=== PATIENT | female | born 1940 | race Caucasian/White ===

== ENCOUNTER → 2019-04-26 12:36 | Outpatient (CLI) | payer MEDICARE, MEDICAID, SELFPAY ==
--- NOTE | ~2019-04-26 | MM_ITS ---
EXAMINATION: MM screening saúl BI w claudia HISTORY: Screening mammogram TECHNIQUE: Craniocaudal and mediolateral oblique 3-D tomosynthesis images were obtained and synthetic 2-D images were generated. CAD analysis was submitted and interpreted. COMPARISON: Comparison to multiple prior studies sequentially, with oldest reviewed study dated 10/25. BREAST PARENCHYMAL COMPOSITION: There are scattered areas of fibroglandular density. FINDINGS: Stable bilateral breast calcifications. There is no evidence of suspicious mass, calcificat ion, or architectural distortion to suggest malignancy in either breast. There has been no suspicious interval change. IMPRESSION: 1. No mammographic evidence of malignancy. 2. Recommend routine screening mammography in one year. BI-RADS Category 2: Benign finding(s). Reviewed, dictated and finalized at location A.
--- NOTE | ~2019-04-26 | DEXA_ITS ---
Bone Density Report Name: Kylie Nunn Age: 78 Sex: Female Ethnicity: White Date of : 1940 Indication: postmenopausal; screening for osteoporosis; hysterectomy; Referring Provider: Gwen Caceres Study: Bone densitometry was performed. Exam Date: April 26, 2019 Accession number: [id number] Bone Density: Region BMD T-score Z-score Classification AP Spine (L1-L4) 1.355 2.8 5.3 Normal Femoral Neck (Left) 0.837 -0.1 2.0 Normal Total Hip (Left) 1.049 0.9 2.8 Normal Femoral Neck (Right) 0.908 0.5 2.7 Normal Total Hip (Right) 1.057 0.9 2.8 Normal Total Hip Mean 1.053 0.9 2.8 Normal World Health Organization criteria for BMD impression classify patients as: Normal (T-score at or above -1.0), Osteopenia (T-score between -1.0 and -2.5), or Osteoporosis (T-score at or below -2.5). 10-year Fracture Risk: FRAX not reported because: All T-scores for Spine Total, Hip Total, Femoral Neck at or above -1.0 Clinical Information Provided by Patient: Has used the following medications: Vitamin D, mtv Has the following medical conditions: Hysterectomy Patient maximum height was 61 Menopause Age: 31 No regular weight bearing exercise Drinks caffeinated beverages Onset of menses at age 11 Number of children 3 Impression: The patient has normal bone mass. Discussion: BONE DENSITY IS ABOVE THE MINIMUM DESIRABLE LEVEL AT ALL SKELETAL SITES TESTED. This patient?s bone mineral density is above the minimum desirable level (T-score -1.0 or better) at all sites measured. The patient should follow a healthful lifestyle (good nutrition with adequate calcium and vitamin D, and appropriate weight-bearing exercise). Follow-Up: Consider repeating this study in 5 years or sooner if there is some new clinical indication. Reported by: HOWARD on 04/26/2019 1:40:00 PM. Reviewed, dictated and finalized at location AJosué OSBORNE
== END ==
PROVIDERS: PCP Internal Medicine; Visit Provider Nurse Practitioner
DX: Z12.31 Encounter for screening mammogram for malignant neoplasm of breast (principal); Z78.0 Asymptomatic menopausal state
CPT/HCPCS: 77063; 77067; 77080

== ENCOUNTER 2019-07-21 14:22 | Outpatient (CLI) | payer MEDICARE, MEDICAID, SELFPAY ==
--- NOTE | ~2019-07-21 | MR_ITS ---
EXAMINATION: MR shoulder LT wo con DATE: 07/21/2019 15:53 INDICATION: Left shoulder pain. TECHNIQUE: Magnetic resonance imaging (MRI) of the left shoulder was performed without intravenous co ntrast. Sequences included axial PD-weighted FS FSE, coronal oblique PD-weighted FS FSE and T2-weight ed FS FSE, and sagittal oblique T2-weighted FS FSE and T1-weighted FSE. COMPARISON: None. FINDINGS: Coracoacromial arch: The acromion undersurface is curved in morphology (type II). Subacromial spurring is noted. There is severe acromioclavicular joint osteoarthritis including inferiorly directed osteophytes. There is mod erate subacromial/subdeltoid bursitis. Rotator cuff: There is a near full-thickness articular-sided and bursal-sided tear of supraspinatus tendon measurin g 1.6 cm anterior to posterior by 2.0 cm proximal to distal. There is an interstitial tear of infrasp inatus at the myotendinous junction. Teres minor tendon is normal. There is mild subscapularis tendin opathy. There is no asymmetric fatty atrophy of the rotator cuff muscle bellies. Biceps tendon and glenoid labrum: Biceps tendon is in bicipital groove. There is severe tendinopathy of the intra-articular biceps tend on. There is a tear of the superior glenoid labrum from 10:00 to 1:00 (SLAP tear). Fluid: There is a small knee joint effusion. Bones/cartilage: There is partial-thickness cartilage loss of glenoid and humeral head including deep partial-thicknes s cartilage loss of superior medial aspect of humeral head. IMPRESSION: 1. Near full-thickness tear of supraspinatus tendon. Interstitial tear of infraspinatus myotendinous junction. 2. Moderate glenohumeral joint chondrosis. SLAP tear. 3. Moderate subacromial/subdeltoid bursitis. 4. Small glenohumeral joint effusion. 5. Severe acromioclavicular joint osteoarthritis. 6. Severe intra-articular biceps tendinopathy. Reviewed, dictated and finalized at location A. IMPRESSION: 1. Near full-thickness tear of supraspinatus tendon. Interstitial tear of infra spinatus myotendinous junction. 2. Moderate glenohumeral joint chondrosis. SLAP tear. 3. Moderate subacromial/subdeltoid bursitis. 4. Small glenohumeral joint effusion. 5. Severe acromioclavicular joint osteoarthritis. 6. Severe intra-articular biceps tendinopathy.
== END 2019-07-21 14:23 | disposition home or self-care (01) ==
LOC: ANHIMG 14:22
PROVIDERS: PCP Internal Medicine; Visit Provider Nurse Practitioner
DX: M25.512 Pain in left shoulder (principal); G89.29 Other chronic pain; S46.012A Strain of muscle(s) and tendon(s) of the rotator cuff of left shoulder, initial encounter; S43.432A Superior glenoid labrum lesion of left shoulder, initial encounter; M75.52 Bursitis of left shoulder; M25.412 Effusion, left shoulder; M19.012 Primary osteoarthritis, left shoulder
CPT/HCPCS: 73221

== ENCOUNTER 2019-08-04 17:24 | Emergency (ER) | payer MEDICARE, MEDICAID, SELFPAY ==
[2019-08-04 17:30] VITALS: BP 158/72; PULSE 73; RESP 14; TEMP 36.8; O2SAT 97
--- NOTE | 2019-08-04 17:37 | ED.FEMALEGU ---
HPI - Female Genitourinary General Chief complaint: Urogenital-Female Stated complaint: abd pain,trouble urinating Time Seen by Provider: 08/04/19 17:38 Source: patient and RN notes reviewed Mode of arrival: ambulatory Limitations: no limitations History of Present Illness MD elicited complaint: dysuria and UTI Onset (ago): day(s) (2-3) Location of symptoms: suprapubic Severity: moderate Female Urogenital Radiation: L Flank and R Flank Severity scale (1-10): 10 Quality of pain: dull and aching Consistency: intermittent and progressively worsening Vaginal discharge: none Vaginal bleeding: none Urinary symptoms: Dysuria, Frequency, Foul Smelling Urine, Difficulty Urinating and Flank Pain Exacerbating factors: urination Relieving factors: none Treatment prior to arrival: none Sexual activity: No Related Data Home Medications Medication Instructions Recorded Confirmed aspirin 325 mg tablet,delayed 325 mg PO DAILY 01/27/19 08/04/19 release mooktvmkaf-egywgdccafgkn-ttzmptas 1 cap PO DAILY PRN cap 01/27/19 08/04/19 50 mg-325 mg-40 mg capsule cyanocobalamin (vitamin B-12) 1,000 mcg PO DAILY 01/27/19 08/04/19 1,000 mcg capsule docusate sodium 50 mg capsule 50 mg PO BID PRN 01/27/19 08/04/19 donepezil 10 mg tablet 10 mg PO QPM tablet 01/27/19 08/04/19 fluticasone propionate 50 1 spray NASAL DAILY 01/27/19 08/04/19 mcg/actuation nasal spray,suspension nitroglycerin 0.2 mg/hr 1 patch TRANSDERM DAILY 01/27/19 08/04/19 transdermal 24 hour patch nortriptyline 25 mg capsule 10 mg PO HS cap 07/13/19 08/04/19 amlodipine 5 mg PO DAILY 08/04/19 08/04/19 Allergies Allergy/AdvReac Type Severity Reaction Status Date / Time No Known Allergies Allergy Unverified 01/27/19 14:34 Review of Systems Review of Systems: All systems reviewed & are unremarkable except as noted in HPI and below Cardiovascular: Cardiovascular: Reports no additional cardiovascular complaints Respiratory: Respiratory: Reports no additional respiratory complaints Gastrointestinal: Gastrointestinal: Denies diarrhea, Denies nausea and Denies vomiting Genitourinary: Genitourinary: Reports as per HPI Musculoskeletal: Musculoskeletal: Reports no additional musculoskeletal complaints Integumentary/Breasts: Skin/Breast: Reports system reviewed and no additional complaints, except as docu Neurologic: Reports system reviewed and no additional complaints, except as documented PMFSH Past Medical History Medical History CAD (coronary artery disease) CVA (cerebral vascular accident) Depression Dizziness Headache Heartburn Hemorrhoids History of measles, mumps, or rubella Hyperlipidemia Hypertension Osteoarthritis Recurrent UTI Shingles Tuberculosis Surgical History Surgical History H/O coronary angioplasty 1997, 2008, 2014 H/O: hysterectomy History of coronary artery stent placement 1993 Family History Family History Father Family history of cardiovascular disease Sibling Family history of cardiovascular disease Hypoglycemia Lung disease Mother Family history of lung disease Social History Social History Smoking status: Former smoker Smoking end date: 02/10/82 Alcohol intake: current Exam Const: General: healthy appearing, no acute distress and alert Nutritional Appearance: well nourished and obese centrally obese Orientation/consciousness: patient oriented x3 HENMT: Head: normal to inspection Eyes: Conjunctivae: conjunctivae normal Pupils: Equal, round and reactive pupils present EOM: EOMs intact bilaterally Neck: Neck: normal visual inspection Resp: Effort & Inspection: normal respiratory effort Auscultation: clear to auscultation bilaterally Cardio: Rate: regular rate Rhythm: regular r
[2019-08-04 17:58] LABS: Add Urine Microscopic? YES; Appearance Urine Cloudy (Clear); Bilirubin Urine Negative (Negative); Blood Urine 3+ (Negative); Color Urine Yellow (Yellow); Glucose Urine UA Negative (Negative); Ketones Urine Negative (Negative); Leukocyte Esterase Ur 3+ (Negative); Nitrate Urine Negative (Negative); Protein Urine Negative (Negative); Specific Grav Ur 1.025 (1.010-1.020); Urobilinogen Urine 0.2 mg/dL (0.2-1.0)
[2019-08-04 18:02] LABS: Bacteria Urine 1+ /hpf; RBC Urine 0-2 /hpf (0-2); Squamous Epithelial Cell Urine Few /hpf (Few); WBC Urine >75 /hpf (0-3)
[2019-08-04 18:13] VITALS: RESP 14; O2SAT 100
[2019-08-04] MEDS: cefTRIAXone 1 GM VIAL IM (18:18)
[2019-08-04] MEDS: LIDOCAINE HCL 1% LOCAL INJ 20 ML VIAL (18:18)
== END 2019-08-04 18:15 | disposition home or self-care (01) ==
PROVIDERS: Emergency Provider Emergency Medicine; PCP Internal Medicine
DX: N39.0 Urinary tract infection, site not specified (principal); Z87.891 Personal history of nicotine dependence; E78.5 Hyperlipidemia, unspecified; I10 Essential (primary) hypertension; Z86.73 Personal history of transient ischemic attack (TIA), and cerebral infarction without residual deficits; I25.10 Atherosclerotic heart disease of native coronary artery without angina pectoris
CPT/HCPCS: 81001; 96372; 99283; J0696

== ENCOUNTER 2019-08-16 14:37 | Outpatient (CLI) | payer MEDICARE, MEDICAID, SELFPAY ==
[2019-08-16 14:59] LABS: Add Urine Microscopic? NO; Appearance Urine Clear (Clear); Bilirubin Urine Negative (Negative); Blood Urine Negative (Negative); Color Urine Yellow (Yellow); Glucose Urine UA Negative (Negative); Ketones Urine Negative (Negative); Leukocyte Esterase Ur Negative LEU/UL (Negative); Nitrate Urine Negative (Negative); Protein Urine Negative (Negative); Specific Grav Ur 1.014 (1.001-1.035); Urobilinogen Urine Negative mg/dL (<2.0)
== END 2019-08-16 14:38 | disposition home or self-care (01) ==
PROVIDERS: PCP Internal Medicine; Visit Provider Clinical Nurse Specialist
DX: R30.0 Dysuria (principal)
CPT/HCPCS: 81003

== ENCOUNTER → 2021-03-26 13:36 | Outpatient (CLI) | payer MEDICARE, MEDICAID, SELFPAY ==
--- NOTE | ~2021-03-26 | XR_ITS ---
XR hip LT min 3V w AP pelvis DATE: 03/26/2021 13:56 INDICATION: Left hip pain TECHNIQUE: AP pelvis. AP and lateral views of left hip. COMPARISON: 12/07/2013 pelvis and left hip FINDINGS: There is prominent degenerative disc disease at L3-4, L4-5 and L5-S1. The pubic symphysis and sacroiliac joints are intact. No pelvic fracture or bone destruction. There is moderate right and moderately severe left hip osteoarthritis. No fracture or dislocation, avascular necrosis or bone destruction of either hip is detected. IMPRESSION: Degenerative disc disease at L3-4, L4-5 and L5-S1 Bilateral moderate to moderately severe hip osteoarthritis, left greater than right Reviewed, dictated and finalized at location B. NESS OPERATIONS SPECIALIST IMPRESSION: Degenerative disc disease at L3-4, L4-5 and L5-S1 Bilateral moderate to moderately severe hip osteoarthritis, [facility]
== END ==
PROVIDERS: PCP Nurse Practitioner; Visit Provider Nurse Practitioner
DX: M25.552 Pain in left hip (principal); M51.36 Other intervertebral disc degeneration, lumbar region; M16.0 Bilateral primary osteoarthritis of hip
CPT/HCPCS: 73502

== ENCOUNTER → 2021-04-17 13:29 | Outpatient (CLI) | payer MEDICARE, MEDICAID, SELFPAY ==
--- NOTE | ~2021-04-17 | MM_ITS ---
EXAMINATION: MM screening saúl BI w claudia HISTORY: Screening TECHNIQUE: Craniocaudal and mediolateral oblique 3-D tomosynthesis images were obtained and synthetic 2-D images were generated. CAD analysis was submitted and interpreted. COMPARISON: Comparison to multiple prior studies sequentially, with oldest reviewed study dated 10/25. BREAST PARENCHYMAL COMPOSITION: Breast composed of scattered areas of fibroglandular density FINDINGS: There is no evidence of suspicious mass, calcification, or architectural distortion to sugg est malignancy in either breast. There has been no suspicious interval change. IMPRESSION: 1. No mammographic evidence of malignancy. 2. Recommend routine screening mammography in one year. BI-RADS CATEGORY 2 - BENIGN FINDINGS Reviewed, dictated and finalized at location A. MIXER
== END ==
PROVIDERS: PCP Internal Medicine; Visit Provider Nurse Practitioner
DX: Z12.31 Encounter for screening mammogram for malignant neoplasm of breast (principal)
CPT/HCPCS: 77063; 77067

== ENCOUNTER 2021-05-14 13:53 | Outpatient (RCR) | payer MEDICARE, MEDICAID, SELFPAY ==
--- NOTE | 2021-05-14 15:05 | PTOPEVAL ---
Thank you for referring Kylie Nunn to [facility].? The patient is scheduled to be seen for therapy? __3__x/week for _12 visits. Please review, sign, date and return this plan of care YVETTE. I agree with and certify that the following plan of care is medically necessary. Referring Physician Date Admitting Provider: Attending Provider: Dany Rebolledo MD Referring Provider: *PT Outpatient Evaluation Start: 05/14/21 14:09 Freq: Status: Active Protocol: Document 05/14/21 14:09 KYLE (Rec: 05/14/21 14:59 KYLE [email or web address]) Therapy Assessment Status Assessment Status Assessment Status Evaluation Outpatient Past Medical History Neurological History Hx Migraine Yes Hx Other Neurological Disorders Yes Cardiovascular History Hx Angina Yes Hx Coronary Artery Bypass Graft Yes Hx Hypercholesterolemia Yes Hx Hypertension Yes Gastrointestinal History Hx Gastroesophageal Reflux Disease Yes Hx Hernia Yes: ABDOMINAL MESH Hx Other Gastrointestinal Disorders Yes: CONSTIPATION Evaluation Information Problem Diagnosis left hip OA, left hip pain Onset 05/09/21 Subjective Information Pt. reports that she has pain Query Text:As Reported By Patient/ located at the low back and Family into the described left greater trochanter. Pt. reports that doctor suggested hip replacement but she refused. She reports she will be scheduled for a hip injection. Pt. reports she cannot sit in one position for too long. She reports that she can only stand for a few minutes due to pain. She reports that she has hx of heart disease and has poor endurance, and spends most of the time sitting. She reports that her goal for therapy is to decrease her back and hip pain. Prior Level of Function Comments Additional Prior Level of Function Pt. reports pain makes sleep Comments difficult. She reports that she is not using a AD and states that she has had no recent falls. She does recall episodes of LOB. Pain Assessment Pain Scale Pain Scale Used Numeric (1 - 10) Self Report Pain Assessment Left
== END 2021-06-11 09:30 | disposition home or self-care (01) ==
LOC: CHSPT 13:53
PROVIDERS: Visit Provider Orthopaedic Surgery
DX: M16.12 Unilateral primary osteoarthritis, left hip (principal); M25.552 Pain in left hip
CPT/HCPCS: 97014; 97110; 97140; 97161; G0283

== ENCOUNTER 2021-05-16 13:03 | Outpatient (CLI) | payer MEDICARE, MEDICAID, SELFPAY ==
--- NOTE | ~2021-05-16 | XR_ITS ---
EXAMINATION: XR lg joint inject/asp w image DATE: 05/16/2021 14:00 INDICATION: Left hip arthritis. Left hip pain. TECHNIQUE: A time-out was performed to verify the patient's name, date of , and procedure to b e performed. The procedure including the risks, benefits, and alternatives was discussed with the pat ient. Risks discussed included bleeding and infection. The patient understood the risks and agreed to proceed. The skin overlying the left hip joint was prepped and draped in usual sterile fashion. An esthetic was administered with 1% lidocaine subcutaneously. A 22 G needle was advanced under fluoros copic guidance into the joint. Injection of 1 mL of Omnipaque 240 confirmed intra-articular position of the needle. Subsequently, injectate consisting of 2 mL 0.5% bupivacaine and 2 mL 40 mg/mL Depo-M edrol was instilled. The needle was removed and the entry site was cleaned and dressed. There were no immediate complications. Fluoroscopy exposure time was 0.1 minutes. The total number of images was 2. FINDINGS: Real-time fluoroscopy demonstrates the needle in the left hip joint. Patient's pain prior t o procedure:07/20. Patient's pain following the procedure: 05/20. IMPRESSION: 1. Fluoroscopy guided left hip joint injection of local anesthetic and steroid with decrease in the p atient's presenting pain. Reviewed, dictated and finalized at location A. IMPRESSION: 1. Fluoroscopy guided left hip joint injection of local anesthetic and steroid with decrease in the patient's presenting pain.
== END 2021-05-16 13:04 | disposition home or self-care (01) ==
LOC: ANHIMG 13:05
PROVIDERS: Visit Provider Orthopaedic Surgery
DX: M16.12 Unilateral primary osteoarthritis, left hip (principal)
CPT/HCPCS: 20610; 77002; J1030; Q9966

== ENCOUNTER 2021-06-13 14:43 | Outpatient (CLI) | payer MEDICARE, MEDICAID, SELFPAY ==
--- NOTE | ~2021-06-13 | MR_ITS ---
EXAMINATION: MR brain/brain stem wo/w con DATE: 06/13/2021 16:54 INDICATION: Dizziness and giddiness. TECHNIQUE: Magnetic resonance imaging (MRI) of the brain and brainstem was performed without and with 19 mL MultiHance intravenous contrast. COMPARISON: Head CT 07/02/2018 FINDINGS: There is an old infarct in left occipital lobe. There are scattered areas of nonspecific in creased T2-weighted signal intensity in the cerebral white matter. There is an old infarct in the rig ht lentiform nucleus. There is no intracranial hemorrhage, acute infarction, or abnormal intracranial mass lesion. The ventricles are normal in size. The orbits are normal. There is mild mucosal thicken ing in the paranasal sinuses. There is a trace left mastoid effusion. IMPRESSION: 1. Old infarcts involving the left occipital lobe and right lentiform nucleus. 2. Mild nonspecific cerebral white matter disease, which likely represents chronic small vessel ische isabel disease. Reviewed, dictated and finalized at location B. IMPRESSION: 1. Old infarcts involving the left occipital lobe and right lentiform nucleus. 2. Mild nonspecific cerebral white matter disease, which likely represents managing attorney delgado small vessel ischemic disease.
[2021-06-13 16:13] LABS: Estimated Glomerular Filt Rate 48
[2021-06-13 17:29] LABS: Basophils Percent Auto 0.5 % (0.2-1.2); Eosinophils Absolute Auto 0.2 K/mm3 (0-0.3); Eosinophils Percent Auto 1.9 % (0-4.4); Hematocrit 41.8 % (37.0-47.0); Hemoglobin 13.2 g/dL (12.0-15.0); Immature Granulocyte Absolute 0.02 K/mm3 (0.00-0.031); Immature Granulocyte Percent A 0.3 % (0-0.5); Lymphocytes Absolute Auto 2.17 K/mm3 (0.9-3.2); Lymphocytes Percent Auto 27.7 % (18.3-44.2); Mean Corpuscular HGB Conc 31.6 g/dl (32-36); Mean Corpuscular Hemoglobin 28.9 pg (26-34); Mean Corpuscular Volume 91.7 fl (80-100); Mean Platelet Volume 9.7 fl (7.4-10.4); Monocytes Absolute Auto 0.8 K/mm3 (0.1-0.6); Monocytes Percent Auto 10.6 % (2.6-8.5); Neutrophils Absolute Auto 4.6 K/mm3 (1.3-6.7); Platelet Count Result 266 k/mm3 (150-375); Red Blood Count 4.56 M/mm3 (4.2-5.4); Red Cell Distribution Width 14.2 % (11.5-14.5); White Blood Count 7.8 K/mm3 (4.5-10.0)
[2021-06-13 17:41] LABS: Alanine Aminotransferase 15 U/L (4-35); Albumin Level 4.1 g/dL (3.5-5.1); Alkaline Phosphatase 97 U/L (38-126); Anion Gap 6 mmol/L (8-16); Aspartate Amino Transferase 23 U/L (14-36); Bilirubin,Total 0.9 mg/dL (0.2-1.3); Blood Urea Nitrogen 13 mg/dL (7-17); Calcium 9.9 mg/dL (8.4-10.2); Carbon Dioxide 30 mmol/L (22-30); Chloride 102 mmol/L (98-107); Estimated Glomerular Filt Rate 54; Glucose 95 mg/dL (65-110); Potassium 4.6 mmol/L (3.4-5.0); Sodium 138 mmol/L (137-145)
[2021-06-13 17:41] LABS: Appearance Urine Slightly Cloudy (Clear); Bilirubin Urine 1+ (Negative); Blood Urine Negative (Negative); Color Urine Yellow (Yellow); Glucose Urine UA Negative (Negative); Ketones Urine Trace mg/dL (Negative); Leukocyte Esterase Ur Trace LEU/UL (Negative); Nitrate Urine Negative (Negative); Protein Urine Trace mg/dL (Negative); Specific Grav Ur 1.025 (1.001-1.035)
[2021-06-13 17:50] LABS: Bacteria Urine Trace /hpf; Mucus Urine Rare /lpf; Squamous Epithelial Cell Urine Many /hpf (Few)
[2021-06-13 17:51] LABS: Add Urine Microscopic? YES
== END 2021-06-13 14:44 | disposition home or self-care (01) ==
PROVIDERS: PCP Internal Medicine; Visit Provider Nurse Practitioner
DX: R42 Dizziness and giddiness (principal); I25.2 Old myocardial infarction; R90.82 White matter disease, unspecified; Z51.81 Encounter for therapeutic drug level monitoring; Z79.899 Other long term (current) drug therapy
CPT/HCPCS: 70553; 80053; 81001; 84443; 85025; A9577

== ENCOUNTER 2021-09-26 12:52 | Outpatient (CLI) | payer MEDICARE, MEDICAID, SELFPAY ==
--- NOTE | ~2021-09-26 | CT_ITS ---
EXAMINATION: CTA chest DATE: 09/26/2021 13:37 INDICATION: Coronary artery disease involving the [place] coronary artery TECHNIQUE: Computed tomographic angiography (CTA) of the chest was performed with 100 mL Omnipque-350 intravenous contrast. Maximum intensity projection 3D-reconstructions of the aorta and other arterie s were constructed by the technologist on a separate workstation. The dose-length product (DLP) was 5 63.10 mGy-cm. Automated exposure control and iterative reconstruction technique were employed. COMPARISON: 07/16/2017 FINDINGS: There is no aneurysm or dissection of the thoracic aorta. Calcified atherosclerosis is note d. There is calcified coronary artery atherosclerosis. The heart size is normal. There is mild atelec tasis. No focal airspace opacities are identified. Calcified pulmonary nodules and calcified right hi lar lymph nodes are consistent with old granulomatous disease. There is moderate emphysema. There ar e no pathologically enlarged thoracic lymph nodes. There is severe thoracic spondylosis. IMPRESSION: 1. Atherosclerosis without aneurysm or dissection of the thoracic aorta. Reviewed, dictated and finalized at location A.
[2021-09-26 13:24] LABS: Estimated Glomerular Filt Rate > 60
== END 2021-09-26 12:53 | disposition home or self-care (01) ==
LOC: ANHIMG 12:56
PROVIDERS: PCP Internal Medicine; Visit Provider Specialist
DX: I25.10 Atherosclerotic heart disease of native coronary artery without angina pectoris (principal)
CPT/HCPCS: 71275; Q9967

== ENCOUNTER 2022-05-03 16:27 | Emergency (ER) | payer MEDICARE, MEDICAID, SELFPAY ==
--- NOTE | ~2022-05-03 | XR_ITS ---
XR knee LT 3V DATE: 05/03/2022 17:50 INDICATION: Left knee pain and stiffness following fall today TECHNIQUE: 3 views COMPARISON: None FINDINGS: There is mild periarticular spurring at the patellofemoral joint and moderate. There is spu rring at the lateral compartment in addition to prominent loss of lateral compartment joint space. No fracture or dislocation or joint effusion. No radiopaque intra-articular loose body or, calcinosis . No periosteal reaction or bone destruction. Femoral and popliteal artery calcifications. IMPRESSION: Osteoarthritis, most prominent at the lateral compartment Reviewed, dictated and finalized at location A.
--- NOTE | ~2022-05-03 | XR_ITS ---
XR knee RT 3V DATE: 05/03/2022 17:51 INDICATION: Generalized right knee pain TECHNIQUE: 3 views including crosstable lateral COMPARISON: None FINDINGS: There is mild periarticular spurring of the patellofemoral joint. Medial lateral compartment joint spaces are well preserved. No fracture or dislocation or joint effusion. No radiopaque intra-articular loose body or chondrocalc inosis. No periosteal reaction or bone destruction. Popliteal artery calcification. IMPRESSION: Mild osteoarthritis Reviewed, dictated and finalized at location A. IMPRESSION: Mild osteoarthritis
--- NOTE | ~2022-05-03 | XR_ITS ---
XR hand LT min 3V DATE: 05/03/2022 17:50 INDICATION: Generalized left hand pain and stiffness TECHNIQUE: 3 views COMPARISON: None FINDINGS: There is osteopenia. There is polyarticular osteoarthritis. No fracture or dislocation, periosteal reaction or bone destruction. No erosive change. IMPRESSION: Polyarticular osteoarthritis Osteopenia Reviewed, dictated and finalized at location A.
--- NOTE | ~2022-05-03 | CT_ITS ---
EXAMINATION: CT cervical spine wo con DATE: 05/03/2022 17:49 INDICATION: Fall. Neck stiffness. TECHNIQUE: Computed tomography (CT) of the cervical spine was performed without intravenous contrast. Automated exposure control and iterative reconstruction technique were employed. Exam dose: 502.42 mGy-cm total exam DLP. COMPARISON: None FINDINGS: There is reversal of cervical curvature which may be due to muscle spasm. C1 and C2 are normally aligned and the odontoid process is intact. No fracture or dislocation or lock ed facet or prevertebral soft tissue swelling. There is mild to moderate degenerative disc disease at C3-4, moderate degenerative disc disease at C3 -4, C4-5. There is severe degenerative disc disease at C5-6 and moderately severe degenerative disc d isease at C6-7. There is 1.7 mm anterolisthesis C7-T1. There is prominent degenerative change at the uncovertebral and apophyseal joints. Severe atherosclerotic calcification of the aortic arch and great vessels. Emphysematous changes are noted at the lung zones. IMPRESSION: Reversal cervical curvature Prominent cervical spondylosis No fracture or dislocation or locked facet Reviewed, dictated and finalized at Location A. Reviewed, dictated and finalized at location A.
--- NOTE | ~2022-05-03 | CT_ITS ---
EXAMINATION: CT brain wo con DATE: 05/03/2022 17:49 INDICATION: Fall. Large left forehead hematoma. Neck stiffness. TECHNIQUE: Computed tomography (CT) of the head was performed without intravenous contrast. The mA wa s adjusted according to patient size. Iterative reconstruction technique was employed. Exam dose: 68 1.00 mGy-cm total exam DLP. COMPARISON: None FINDINGS: Vertebral and carotid siphon internal carotid artery calcifications are noted. There is nonspecific diminished attenuation of the cerebral white matter, likely due to chronic small vessel ischemic changes. Chronic right basal ganglia lacunar infarct. Left posterior parietal occipital chronic infarct. No intracranial mass lesion or hemorrhage, midline shift or mass effect is detected. No subdural or epidural hematoma. Left frontal cephalohematoma. No skull fracture or bone destruction. No coup or contrecoup intracrani al injury is detected Sinuses and mastoid air cells are normally developed and aerated. IMPRESSION: Left frontal cephalohematoma; no skull fracture or acute intracranial abnormality Chronic posterior left parietal occipital infarct Chronic right basal ganglia lacunar infarcts Cerebral atherosclerosis and chronic small vessel ischemic changes of cerebral white matter Reviewed, dictated and finalized at Location [facility]. Reviewed, dictated and finalized at location A. IMPRESSION: Left frontal cephalohematoma; no skull fracture or acute intracran ial abnormality Chronic posterior left parietal occipital infarct Chronic right basal ganglia lacunar infarcts Cerebral atherosclerosis and chronic small vessel ischemic changes of cerebral white matter
[2022-05-03 16:27] VITALS: BP 185/65; PULSE 73; RESP 20; TEMP 36.7; O2SAT 97
--- NOTE | 2022-05-03 17:01 | ED.FALL ---
HPI - Fall General Chief Complaint: Fall Stated Complaint: fall Time Seen by Provider: 05/03/22 16:38 History of Present Illness HPI Narrative: This is a 81-year-old female with past history of peripheral artery disease status post bilateral femoropopliteal, hypertension, stroke, who presents to the emergency department after a fall at home. Patient states she has baseline numbness in the feet, she believes she tripped on something on the floor and she fell landing on her left hand and striking her head. She states her headache is rated 8/10 and left hand pain is 6/10. She is not sure if she lost consciousness. She denies chest pain, shortness of breath, palpitations, nausea, vomiting or diarrhea. Related Data Home Medications Medication Instructions Recorded Confirmed aspirin 325 mg tablet,delayed 325 mg PO DAILY 01/27/19 05/03/22 release dojdmwzilp-nmbcmzskenfda-cuoslqpt 1 cap PO DAILY PRN Headache 01/27/19 05/03/22 50 mg-325 mg-40 mg capsule docusate sodium 50 mg capsule 50 mg PO BID PRN Headache 01/27/19 05/03/22 (Stool Softener) fluticasone propionate 50 1 spray intranasal DAILY 01/27/19 05/03/22 mcg/actuation nasal spray,suspension nitroglycerin 0.2 mg/hr 1 patch transdermal DAILY 01/27/19 05/03/22 transdermal 24 hour patch nortriptyline 25 mg capsule 10 mg PO HS 07/13/19 05/03/22 acetaminophen 500 mg tablet 500 mg PO Q6H PRN Breakthrough Pain 01/12/20 05/03/22 candesartan 8 mg tablet 8 mg PO BID 01/12/20 05/03/22 sennosides 8.6 mg tablet (Senokot) 8.6 mg PO DAILY 09/06/20 05/03/22 albuterol sulfate 90 mcg/actuation 2 puff inhalation Q4H PRN 09/19/21 05/03/22 aerosol inhaler (Ventolin HFA) shortness of breath or wheezing donepezil 10 mg tablet 10 mg PO BID 09/19/21 05/03/22 memantine 10 mg tablet 10 mg PO BID 09/19/21 05/03/22 Allergies Allergy/AdvReac Type Severity Reaction Status Date / Time No Known Allergies Allergy Verified 03/27/22 13:15 Review of Systems Review of Systems: CONSTITUTIONAL: Denies fever, chills, or sweats. CARDIOVASCULAR: Denies chest pain, palpitations, or edema. RESPIRATORY: Denies cough or dyspnea. GASTROINTESTINAL: Denies abdominal pain, nausea, vomiting, or diarrhea. GENITOURINARY: Denies dysuria or hematuria. SKIN: Denies rash or itching. MUSCULOSKELETAL: Left hand pain, bilateral knee burning denies back pain, or myalgia. NEUROLOGIC: Headache denies numbness, dizziness, or weakness. PSYCHIATRIC: Denies anxiety or depression. [facility] Past Medical History Medical History Abdominal pain Arthritis CAD (coronary artery disease) Chronic headaches CVA (cerebral vascular accident) Depression Dizziness Ear pain Fever and chills Headache Heart attack Heartburn Hemorrhoids History of measles, mumps, or rubella Hyperlipidemia Hypertension Memory loss Osteoarthritis Recurrent UTI Shingles Sleep disorder SOB (shortness of breath) on exertion Tuberculosis UTI (urinary tract infection), bacterial Vision changes Wears glasses Weight gain Surgical History Surgical History H/O coronary angioplasty 1997, 2008, 2014 H/O: hysterectomy History of coronary artery stent placement 1994 History of hernia surgery 2018 per patient Family History Family History Father Family history of cardiovascular disease Sibling Family history of cardiovascular disease Hypoglycemia Lung disease Mother Family history of lung disease Other Arthritis Cancer Social History Social History Smoking status: Never smoker Smoking end date: 02/10/93 Alcohol intake: current Substance use: never Lack of Transportation: No Lack of Food: Sometimes True Current Housing: I Have Housing Concerned About Future Housing: No Difficulty Paying Gas/
--- NOTE | 2022-05-03 17:23 | PC.NURSE ---
1710 pt to xray via stretcher.
[2022-05-03] MEDS: oxyCODONE/ACETAMINOPHEN (*CRX) 5-325 MG TABLET 1 TABLET PO (17:53)
--- NOTE | 2022-05-03 17:59 | PC.NURSE ---
1750 pt return from xray, ice packs to left hand and forehead.
[2022-05-03 18:45] VITALS: BP 164/66; PULSE 64; RESP 20; TEMP 36.9; O2SAT 97
== END 2022-05-03 19:00 | disposition home or self-care (01) ==
PROVIDERS: Emergency Provider Preventive Medicine Aerospace Medicine; PCP Internal Medicine
DX: S06.0XAA Concussion with loss of consciousness status unknown, initial encounter (principal); S00.93XA Contusion of unspecified part of head, initial encounter; M79.642 Pain in left hand; I25.10 Atherosclerotic heart disease of native coronary artery without angina pectoris; E78.5 Hyperlipidemia, unspecified; I10 Essential (primary) hypertension; I25.2 Old myocardial infarction; Z86.73 Personal history of transient ischemic attack (TIA), and cerebral infarction without residual deficits; Z79.82 Long term (current) use of aspirin; W01.0XXA Fall on same level from slipping, tripping and stumbling without subsequent striking against object, initial encounter
CPT/HCPCS: 70450; 72125; 73130; 73562; 99284; A9270

== ENCOUNTER → 2022-07-19 12:21 | Outpatient (CLI) | payer MEDICARE, MEDICAID, SELFPAY ==
--- NOTE | ~2022-07-19 | MM_ITS ---
EXAMINATION: MM screening saúl BI w claudia HISTORY: Screening TECHNIQUE: Craniocaudal and mediolateral oblique 3-D tomosynthesis images were obtained and synthetic 2-D images were generated. CAD analysis was submitted and interpreted. COMPARISON: Comparison to multiple prior studies sequentially, with oldest reviewed study dated 10/25. BREAST PARENCHYMAL COMPOSITION: There are scattered areas of fibroglandular density. FINDINGS: There is no evidence of suspicious mass, calcification, or architectural distortion to sugg est malignancy in either breast. There has been no suspicious interval change. IMPRESSION: 1. No mammographic evidence of malignancy. 2. Recommend routine screening mammography in one year. BI-RADS Category 1: Negative Reviewed, dictated and finalized at location A.
== END ==
PROVIDERS: PCP Internal Medicine; Visit Provider Nurse Practitioner
DX: Z12.31 Encounter for screening mammogram for malignant neoplasm of breast (principal)
CPT/HCPCS: 77063; 77067

== ENCOUNTER 2022-09-25 14:03 | Inpatient (IN) | payer MEDICARE, MEDICAID, SELFPAY ==
[2022-09-25] VITALS (15 sets, daily range): BP systolic 151–189; BP diastolic 51–64; PULSE 18–64; RESP 13–20; TEMP 36.4–36.6; O2SAT 96–99; BMI 36.3
--- NOTE | ~2022-09-25 | CT_ITS ---
EXAMINATION: CT abdomen pelvis wo con DATE: 09/29/2022 20:46 INDICATION: Abdominal pain TECHNIQUE: Computed tomography (CT) of the abdomen and pelvis was performed without intravenous contr ast. The dose-length product (DLP) was 924.77 mGy-cm. Automated exposure control and iterative recons truction technique were employed. COMPARISON: 02/21/2017 FINDINGS: Minimal dependent atelectasis is present in the lung bases. The heart size is normal. Punct ate calcifications in an otherwise normal spleen likely represent healed granulomatous disease. The l iver, pancreas, gallbladder, and adrenal glands are normal. There is mild atrophy of the left kidney. 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 The right kidney is unremarkable. No pathological ly enlarged abdominal or pelvic lymph nodes are identified. No free intraperitoneal gas or evidence o f bowel obstruction. 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 Colonic diverticulosis is present without evidence of diverticulitis. There is liquid stool in the colon to the level of the rectum which can reflect diarrhea. There is severe lumbar spondylosis. IMPRESSION: 1. Diverticulosis without evidence of diverticulitis. 2. Stool in the colon to the level of the rectum which could reflect diarrhea. Reviewed, dictated and finalized at location F.
--- NOTE | ~2022-09-25 | XR_ITS ---
EXAMINATION: XR chest 1V portable INDICATION: Weakness TECHNIQUE: Portable AP chest at 1434 hours COMPARISON: 07/16/2017 FINDINGS: There is mild atelectasis of the lung bases. No pleural effusion or pneumothorax. The cardi omediastinal silhouette is normal. IMPRESSION: 1. No acute cardiopulmonary abnormality. Reviewed, dictated and finalized at location B.
--- NOTE | ~2022-09-25 | US_ITS ---
EXAMINATION: US venous doppler [facility] DATE: 09/25/2022 19:23 INDICATION: edema . TECHNIQUE: Grayscale images without and with compression and Doppler images of the bilateral lower ex tremity veins were obtained. COMPARISON: None FINDINGS: The right common femoral vein, profunda (deep) femoral vein, femoral vein, popliteal vein, peroneal v ein, posterior tibial veins, gastrocnemius vein, and greater saphenous vein are patent. The left common femoral vein, profunda (deep) femoral vein, femoral vein, popliteal vein, peroneal v ein, posterior tibial veins, gastrocnemius vein, and greater saphenous vein are patent. IMPRESSION: Patent bilateral lower extremity veins. No evidence of deep venous thrombosis. Reviewed, dictated and finalized at location K.
--- NOTE | ~2022-09-25 | XR_ITS ---
EXAMINATION: XR chest 1V portable DATE: 09/28/2022 13:42 INDICATION: COVID-19 pneumonia. TECHNIQUE: A single frontal view of the chest was obtained. COMPARISON: Chest single view 09/25/2022 FINDINGS: There are mild airspace opacities in the lower lung zones. No pleural effusion or pneumotho rax. The heart size is normal. IMPRESSION: 1. Mild airspace opacities in the lower lung zones, consistent with atelectasis versus pneumonia. Reviewed, dictated and finalized at location A.
--- NOTE | 2022-09-25 14:05 | ECG_ITS ---
Measurements Intervals [place] Rate: 52 P: 62 MN: 201 QRS: 22 QRSD: 105 T: 144 QT: 482 QTc: 451 Interpretive Statements SINUS BRADYCARDIA ST DEVIATION AND MODERATE T-WAVE ABNORMALITY, CONSIDER LATERAL ISCHEMIA [-0.1+ mV T WAVE IN I/aVL/V5/V6] COMPARED TO ECG 07/02/2018 16:40:20 SINUS BRADYCARDIA NOW PRESENT T WAVE ABNORMALITY PRESENT Electronically Signed On 09-25-2022 15:28:56 CDT by Vijay Driver M.D.
--- NOTE | 2022-09-25 14:39 | ED.GENADULT ---
HPI - General Adult General Chief complaint: Recheck/Abnormal Lab/Rx Stated complaint: bradycardic Time Seen by Provider: 09/25/22 14:15 History of Present Illness HPI narrative: 82-year-old female with a history of coronary disease, hypertension, high cholesterol presented to the emergency department for evaluation of increased generalized weakness, back pain and left arm heaviness. Patient states the symptoms have been ongoing for the last week. Patient was found to be bradycardic today at her outpatient evaluation. Patient states she does often have some bradycardia. Related Data Home Medications Medication Instructions Recorded Confirmed aspirin 325 mg tablet,delayed 325 mg PO DAILY 01/27/19 09/25/22 release ypabxerleo-ddijjmyfljfnj-lyadcqqn 1 cap PO DAILY PRN Headache 01/27/19 09/25/22 50 mg-325 mg-40 mg capsule docusate sodium 50 mg capsule 50 mg PO BID PRN Headache 01/27/19 09/25/22 (Stool Softener) fluticasone propionate 50 1 spray intranasal DAILY PRN 01/27/19 09/25/22 mcg/actuation nasal Allergy Symptoms spray,suspension nitroglycerin 0.2 mg/hr 1 patch transdermal DAILY 01/27/19 09/25/22 transdermal 24 hour patch nortriptyline 25 mg capsule 10 mg PO HS 07/13/19 09/25/22 acetaminophen 500 mg tablet 500 mg PO Q6H PRN Breakthrough Pain 01/12/20 09/25/22 sennosides 8.6 mg tablet (Senokot) 8.6 mg PO DAILY 09/06/20 09/25/22 albuterol sulfate 90 mcg/actuation 2 puff inhalation Q4H PRN 09/19/21 09/25/22 aerosol inhaler (Ventolin HFA) shortness of breath or wheezing donepezil 10 mg tablet 10 mg PO BID 09/19/21 09/25/22 Allergies Allergy/AdvReac Type Severity Reaction Status Date / Time No Known Allergies Allergy Verified 09/25/22 12:57 Review of Systems Review of Systems: All systems reviewed & are unremarkable except as noted in HPI and below PMFSH Past Medical History Medical History (Updated 09/25/22 @ 21:02 by Naga Welsh MD) Arthritis Cerebrovascular accident Chronic headaches Coronary artery disease Depression Hemorrhoids Hyperlipidemia Hypertension Memory loss Osteoarthritis Shingles Tuberculosis Wears glasses Surgical History Surgical History (Updated 09/25/22 @ 16:42 by Aneta Cosme PA-C) History of coronary angioplasty History of coronary artery stent placement History of hernia repair History of hysterectomy Family History Family History Father Family history of cardiovascular disease Sibling Family history of cardiovascular disease Hypoglycemia Lung disease Mother Family history of lung disease Other Arthritis Cancer Social History Social History (Updated 09/25/22 @ 16:43 by Aneta Cosme PA-C) Social History: Surrogate medical decision maker: Sharee Chawla, daughter. Code status: Full code. Smoking status: Former smoker Smoking end date: 02/10/93 Alcohol intake: never Drinks per week: 1 Substance use: never Substance use type: does not use Lack of Transportation: No Lack of Food: Sometimes True Current Housing: I Have Housing Concerned About Future Housing: No Difficulty Paying Gas/Electric Bills: No Difficulty Paying for Meds: No Currently Unemployed: No Education: Trade/Vocational Certificate Difficulty w/ Childcare or Family Care: No Occupation/Education: retired Spiritual care concerns: No Exam Narrative: APPEARANCE: Well appearing, no pain, no distress, well-nourished. HEAD: normocephalic, atraumatic. EYES: PERRLA/EOMI, conjunctivae clear. NOSE: Normal no drainage NECK: Supple. No adenopathy, no masses. RESPIRATORY: Airway patent, respirations nonlabored. Clear to auscultation bilaterally, no rales, rhonchi, wheezing. CARDIOVASCULAR: Regular rate and rhythm without murmurs rubs or gallops. ABDOMINAL: Soft, nontender, nondistended, normal bowel sounds MUSCULOSKELETAL: Moves all extremities. Strength/ROM intact, No edema, N
[2022-09-25 14:42] LABS: Basophils Percent Auto 0.5 % (0.2-1.2); Eosinophils Absolute Auto 0.1 K/mm3 (0-0.3); Eosinophils Percent Auto 0.9 % (0-4.4); Hematocrit 43.7 % (37.0-47.0); Hemoglobin 14.1 g/dL (12.0-15.0); Immature Granulocyte Absolute 0.02 K/mm3 (0.00-0.031); Immature Granulocyte Percent A 0.2 % (0-0.5); Lymphocytes Absolute Auto 1.63 K/mm3 (0.9-3.2); Lymphocytes Percent Auto 20.3 % (18.3-44.2); Mean Corpuscular HGB Conc 32.3 g/dl (32-36); Mean Corpuscular Hemoglobin 27.9 pg (26-34); Mean Corpuscular Volume 86.4 fl (80-100); Mean Platelet Volume 9.8 fl (7.4-10.4); Monocytes Absolute Auto 0.6 K/mm3 (0.1-0.6); Monocytes Percent Auto 7.6 % (2.6-8.5); Neutrophils Absolute Auto 5.7 K/mm3 (1.3-6.7); Neutrophils Percent Auto 70.5 % (45.5-73.1); Platelet Count Result 249 k/mm3 (150-375); Red Blood Count 5.06 M/mm3 (4.2-5.4); Red Cell Distribution Width 14.1 % (11.5-14.5)
[2022-09-25 14:51] LABS: Alanine Aminotransferase 18 U/L (6-35); Albumin Level 4.2 g/dL (3.5-5.1); Alkaline Phosphatase 105 U/L (38-126); Anion Gap 3 mmol/L (8-16); Aspartate Amino Transferase 22 U/L (14-36); Bilirubin,Total 0.9 mg/dL (0.2-1.3); Blood Urea Nitrogen 12 mg/dL (7-17); Calcium 9.9 mg/dL (8.4-10.2); Carbon Dioxide 28 mmol/L (22-30); Chloride 102 mmol/L (98-107); Estimated CRCL calculation 41 ml/min; Estimated Glomerular Filt Rate 53; Glucose 105 mg/dL (65-110); Magnesium 2.2 mg/dL (1.6-2.3); Potassium 3.7 mmol/L (3.4-5.0); Sodium 133 mmol/L (137-145)
[2022-09-25 15:02] LABS: Troponin I < 0.012 ng/mL (0.000-0.034)
[2022-09-25 15:15] LABS: Influenza A QL RT-PCR Negative (Negative); Influenza B QL RT-PCR Negative (Negative); RSV RNA, RT-PCR Negative (Negative); SARS-CoV-2 RNA PCR Negative (Negative)
[2022-09-25 15:41] LABS: Appearance Urine Turbid (Clear); Bacteria Urine 4+ /hpf; Bilirubin Urine Negative (Negative); Blood Urine 1+ (Negative); Color Urine Dark Yellow (Yellow); Glucose Urine UA Negative (Negative); Hyaline Casts Urine Present /lpf; Ketones Urine Trace mg/dL (Negative); Leukocyte Esterase Ur 2+ LEU/UL (Negative); Nitrate Urine Positive (Negative); Non Pathogenic Casts >20; Protein Urine 3+ mg/dL (Negative); Specific Grav Ur 1.023 (1.001-1.035); Squamous Epithelial Cell Urine Few /hpf (Few); WBC Urine >100 /hpf
[2022-09-25 15:43] LABS: Add Urine Microscopic? YES
--- NOTE | 2022-09-25 16:08 | PM.IMHP ---
H&P: HPI History of Present Illness Date/Time: 09/25/22 17:45 Chief Complaint: Weakness. Narrative: This is a very pleasant 82-year-old female with history of stroke in 2017 S, coronary artery disease with a chronic total occlusion of the right coronary artery with collaterals and high-grade lesion a small diagonal branch of LAD noted on cardiac catheterization in November 2014, hypertension, dyslipidemia, and mild memory loss who presented to the emergency department via private vehicle from her doctor's office for evaluation of weakness. The patient provides the following history. She has not been feeling great for couple of weeks with increasing fatigue, generalized malaise, dysuria, decreased appetite, and occasional chills and sweats. She denies fever, headache, sinus congestion, sore throat, cough, chest pain, pleuritic pain, palpitations, shortness of breath, nausea, vomiting, and diarrhea. No syncope or near syncope. She had a routine appointment with her doctor today and she was sent to the emergency department for for evaluation of bradycardia. Her heart rate was reportedly in the 40s when she is typically in the mid 60s to low 70s at baseline. Since arrival to the ED she has been pretty persistent in the low 50s with stable blood pressures. Aside from fatigue she does not seem to be really symptomatic with this and denies lightheadedness and dizziness. She has been on metoprolol for quite some time and has not had any recent dosing changes and she denies that she could have taken any extra doses. Sodium was a bit low at 133 but the rest of her CMP and CBC were unremarkable. TSH is within normal limits. Urine looked grossly infected and she has been started on ceftriaxone. He is being admitted in this setting for close monitoring. Review of Systems Review of Systems: Twelve systems were reviewed and are negative except for as per HPI. [facility] Past Medical History Medical History (Updated 09/25/22 @ 21:02 by Naga Welsh MD) Arthritis Cerebrovascular accident Chronic headaches Coronary artery disease Depression Hemorrhoids Hyperlipidemia Hypertension Memory loss Osteoarthritis Shingles Tuberculosis Wears glasses Surgical History Surgical History (Updated 09/25/22 @ 16:42 by Aneta Cosme PA-C) History of coronary angioplasty History of coronary artery stent placement History of hernia repair History of hysterectomy Family History Family History Father Family history of cardiovascular disease Sibling Family history of cardiovascular disease Hypoglycemia Lung disease Mother Family history of lung disease Other Arthritis Cancer Social History Social History (Updated 09/25/22 @ 16:43 by Aneta Cosme PA-C) Social History: Surrogate medical decision maker: Sharee Chawla, daughter. Code status: Full code. Smoking status: Former smoker Smoking end date: 02/10/93 Alcohol intake: never Drinks per week: 1 Substance use: never Substance use type: does not use Lack of Transportation: No Lack of Food: Sometimes True Current Housing: I Have Housing Concerned About Future Housing: No Difficulty Paying Gas/Electric Bills: No Difficulty Paying for Meds: No Currently Unemployed: No Education: Trade/Vocational Certificate Difficulty w/ Childcare or Family Care: No Occupation/Education: retired Spiritual care concerns: No Meds Home Medications and Allergies Home Medications Medication Instructions Recorded Confirmed Type aspirin 325 mg tablet,delayed 325 mg PO DAILY 01/27/19 09/25/22 History release xwahcimyto-lsydtbukpovvi-rfbgiaip 1 cap PO DAILY PRN Headache 01/27/19 09/25/22 History 50 mg-325 mg-40 mg capsule docusate sodium 50 mg capsule 50 mg PO BID PRN Headache 01/27/19 09/25/22 History (Stool Softener) fluticasone propionate 50 1 spray intranasal DAILY PRN 01/27/19
--- NOTE | 2022-09-25 16:57 | ADMIMU ---
This patient, Kylie Nunn, was admitted to IMU status, and placed in IMU Room 205-02. Patient/family oriented to hospital policies and general routines including ID bracelet, bed and alarms, visiting hours, pain management, procedures, bathroom and other care routines, personal items, smoking policy, room service/diet, and visiting hours. Valuables list has been completed. Information on how to activate the Rapid Response Team has been discussed. Patient/Family are encouraged to report perceived risks to care and to ask questions if they do not understand what they are told or what they should do.
[2022-09-25 18:02] LABS: Troponin I < 0.012 ng/mL (0.000-0.034)
[2022-09-25] MEDS: ACETAMINOPHEN 325 MG TABLET 650 MG PO (20:20)
[2022-09-25] MEDS: GABAPENTIN 300 MG CAPSULE BY MOUTH (23:32)
[2022-09-25] MEDS: SODIUM CHLORIDE 0.9% IV 1,000 ML 100 ML IV CONT (23:32)
[2022-09-26] VITALS (17 sets, daily range): BP systolic 120–212; BP diastolic 35–83; PULSE 48–59; RESP 16–20; TEMP 36.1–36.7; O2SAT 94–98
--- NOTE | 2022-09-26 | ECHO_ITS ---
Patient Info Name: Kylie Nunn Age: 82 years : 1940 Gender: Female Ht: 62 in Wt: 199 lbs BSA: 2.03 m2 HR: 51 bpm BP: 156 / 57 mmHg Heart Rhythm: Sinus Rhythm Technical Quality: Poor Exam Date: 09/26/2022 10:07 AM Exam Location: [facility] Pulmonary Exam Room: [facility] Patient Status: Inpatient Admit Date: 09/25/2022 Staff Ordering Physician: Aneta Cosme PA-C Ocean Forwarder: Sandrine Mitchell RCS Attending Provider: Sean Pandey MD Referring Physician: Ba COSTA; Exam Type: CA echo dop color flow w con Study Info Indications - bradycardia Complete two-dimensional, color flow and Doppler transthoracic echocardiogram is performed with contrast to opacify the left ventricle and to improve the deliniation of the left ventricle endocardial borders. Contrast/Agitated Saline Contrast/Ag. Saline: Definity Amount: 2.00 ml Administered By: Sandrine Mitchell Existing IV Access: Yes IV Access Condition: patent with no signs of infiltration Reason for Poor Study: patient body habitus Summary 1. Technically difficult study with limited views. Definity contrast administered. 2. Left ventricular chamber dimension is normal. 3. Left ventricular systolic function is normal, estimated at 60-65%. 4. There is no increased left ventricular wall thickness. 5. The left ventricular diastolic function is grade I diastolic dysfunction. 6. The aortic valve is not well visualized. 7. There is mild to moderate aortic valve stenosis with a peak velocity of 212.90 cm/s, mean gradient of 11 mmHg, and aortic valve area of 1.25 cm2. However, significantly elevated velocities with Pedoff probe up to 3.9m/sec with peak gradient 63mmHg. Interogation of the aortic arch suggested focal calcification with elevated velocities yet is poorly visualized. This may represent supravalvular stenosis and or significant focal calcified plaque with associated increased velocities. Consider CT angiogram of the chest for further evaluation of ascending aorta. Consider KARMEN for further evaluation of aortic valve and/or aorta. Clinical correlation advised. 8. There is at least moderate to severe aortic valve calcification. 9. There is no aortic valve regurgitation. 10. There is mild mitral valve regurgitation. 11. There is mild tricuspid valve regurgitation. 12. Mild pulmonary hypertension, estimated pulmonary arterial systolic pressure is 38 mmHg. Left Ventricle Left ventricular chamber dimension is normal. Left ventricular systolic function is normal, estimated at 60-65%. There is no increased left ventricular wall thickness. The left ventricular diastolic function is grade I diastolic dysfunction. Technically difficult study with limited views. Definity contrast administered. Right Ventricle Right ventricular chamber dimension is normal. Right ventricular systolic function is normal. Left Atria Left atrial chamber dimension is mildly enlarged. Right Atria Right atrial chamber dimension is normal. Aortic Valve The aortic valve is not well visualized. There is mild to moderate aortic valve stenosis with a peak velocity of 212.90 cm/s, mean gradient of 11 mmHg, and aortic valve area of 1.25 cm2. However, significantly elevated velocities with Pedoff probe up to 3.9m/sec with peak gradient 63mmHg. Interogation of the aortic arch suggested focal calcification with elevated velocities yet is poorly visualized. This may represent supravalvular stenosis and or significant focal calcified plaque with associated increased velocities. Consider CT angiogram of the chest fo
[2022-09-26 04:55] LABS: Hemoglobin 12.3 g/dL (12.0-15.0); Mean Corpuscular HGB Conc 32.4 g/dl (32-36); Mean Corpuscular Hemoglobin 27.8 pg (26-34); Mean Platelet Volume 9.9 fl (7.4-10.4); Platelet Count Result 202 k/mm3 (150-375); Red Blood Count 4.42 M/mm3 (4.2-5.4); Red Cell Distribution Width 13.8 % (11.5-14.5); White Blood Count 6.7 K/mm3 (4.5-10.0)
[2022-09-26 05:05] LABS: Anion Gap 3 mmol/L (8-16); Blood Urea Nitrogen 14 mg/dL (7-17); Calcium 9.2 mg/dL (8.4-10.2); Carbon Dioxide 28 mmol/L (22-30); Chloride 104 mmol/L (98-107); Estimated CRCL calculation 38 ml/min; Estimated Glomerular Filt Rate 48; Glucose 100 mg/dL (65-110); Magnesium 2.3 mg/dL (1.6-2.3); Potassium 3.6 mmol/L (3.4-5.0); Sodium 135 mmol/L (137-145)
[2022-09-26] MEDS: GABAPENTIN 300 MG CAPSULE BY MOUTH ×3 (06:10→21:42)
[2022-09-26] MEDS: FUROSEMIDE 20 MG TABLET BY MOUTH (09:23)
[2022-09-26] MEDS: ASPIRIN 325 MG ENTERIC TABLET PO (09:23)
[2022-09-26] MEDS: SENNOSIDES 8.6 MG TABLET PO (09:23)
[2022-09-26] MEDS: NITROGLYCERIN 0.2 MG/HR PATCH 1 PATCH TRANSDERM (09:23)
[2022-09-26] MEDS: SERTRALINE HCL 50 MG TABLET PO (09:23)
[2022-09-26] MEDS: POTASSIUM CHLORIDE 10 MEQ ER TABLET PO (09:23)
[2022-09-26] MEDS: ATORVASTATIN 40 MG TABLET 80 MG PO (09:23)
[2022-09-26] MEDS: PERFLUTREN LIPID MICROSPHERES 1.5 ML VIAL DILUTED TO 10 ML TOTAL VOLUME IV PUSH (11:15)
--- NOTE | 2022-09-26 14:04 | PC.NURSE ---
Dr. Pandey made aware of elevated BP of 180s/80s. Blood pressures retaken. Supine bp 190s/40s with > 20 point reduction from supine to sitting, and sitting to standing. Detailed message left with Dr. Pandey.
--- NOTE | 2022-09-26 15:34 | PM.IMPN ---
Progress Note: A&P Assessment and Plan (1) Bradycardia: Code(s): R00.1 - Bradycardia, unspecified Status: Acute Assessment and Plan: The patient presented to the emergency department for evaluation bradycardia. Beta-maryana and donepezil on hold. TSH is within normal limits. She is not having any chest pain however her EKG shows some ST T-wave abnormalities in the lateral leads. Echo showing EF 60-65% with Grade I diastolic dysfunction. Mild-moderate noted but possibly supravalvular stenosis. Monitor on tele. Cardiology consult for possible KARMEN. (2) Urinary tract infection: Code(s): N39.0 - Urinary tract infection, site not specified Status: Acute Assessment and Plan: UA noted. UCx pending. Continue Rocephin (3) Fatigue: Qualifiers: Fatigue type: unspecified Qualified Code(s): R53.83 - Other fatigue Code(s): R53.83 - Other fatigue Status: Acute Assessment and Plan: Related to above. PT/OT. (4) Hypertension: Qualifiers: Hypertension type: primary hypertension Qualified Code(s): I10 - Essential (primary) hypertension Code(s): I10 - Essential (primary) hypertension Status: Acute Assessment and Plan: Patient's blood pressure was reviewed on 09/26 Blood pressure remains elevated. Will continue to monitor. Resume Norvasc. (5) Coronary artery disease: Code(s): I25.10 - Atherosclerotic heart disease of nikolai coronary artery without angina pectoris Status: Acute Assessment and Plan: Patient with known CAD. Continue ASA and lipitor. Subjective Date/time seen: 09/26/22 15:34 Interval history: 82yo female with hx CVA, CAD and HTN here for weakness. Slept okay. No CP or SOB. No n/v. No back or abd pain. Has had dysuria for the past 3 days. Exam Narrative: AF 98.1 186/64 53 18 96% ra Gen - NARD Chest - few basilar rhonchi, CV - bradycardia, Tele showing HR down to 45bpm. Abd - Soft, ND, incisional mass periumbilical without erythema or warmth. Ext - No pedal edema Psych - Nml mood and affect Skin - Warm and dry Objective Data Vital Signs Vital Signs: Vital Signs - 24 hr 09/25/22 15:45 09/25/22 17:12 09/25/22 17:59 Temperature 97.7 F Pulse Rate 51 L 49 L Respiratory Rate 16 16 Blood Pressure 154/51 H Pulse Oximetry 98 98 Oxygen Delivery Room Air 09/25/22 18:00 09/25/22 20:00 09/25/22 20:00 Temperature 97.5 F L Pulse Rate 53 L 18 L 49 L Respiratory Rate 20 Blood Pressure 171/52 H Pulse Oximetry 97 Oxygen Delivery 09/25/22 20:00 09/25/22 21:34 09/26/22 00:00 Temperature Pulse Rate 49 L 50 L 52 L Respiratory Rate 20 Blood Pressure Pulse Oximetry 97 Oxygen Delivery Room Air 09/26/22 00:00 09/26/22 00:00 09/26/22 02:00 Temperature 97.3 F L Pulse Rate 52 L 50 L 52 L Respiratory Rate 20 16 Blood Pressure 154/35 H Pulse Oximetry 97 98 Oxygen Delivery Room Air 09/26/22 04:00 09/26/22 04:00 09/26/22 04:00 Temperature 97 F L Pulse Rate 51 L 51 L 53 L Respiratory Rate 16 16 Blood Pressure 156/57 H Pulse Oximetry 98 97 Oxygen Delivery Room Air 09/26/22 06:00 09/26/22 08:00 09/26/22 08:25 Temperature 97.9 F Pulse Rate 48 L 53 L 59 L Respiratory Rate 16 Blood Pressure 171/56 H Pulse Oximetry 95 94 Oxygen Delivery Room Air 09/26/22 08:00 09/26/22 10:00 09/26/22 08:00 Temperature Pulse Rate 50 L 54 L Respiratory Rate Blood Pressure Pulse Oximetry 94 Oxygen Delivery Room Air 09/26/22 11:51 09/26/22 12:00 09/26/22 13:59 Temperature 98.1 F Pulse Rate 52 L Respiratory Rate 18 Blood Pressure 189/83 H 192/44 H Pulse Oximetry 96 96 Oxygen Delivery Room Air 09/26/22 13:59 09/26/22 14:00 09/26/22 14:00 Temperature Pulse Rate Respiratory Rate Blood Pressure 176/81 H 120/68 186/64 H Pulse Oximetry Oxygen Delivery
[2022-09-26] MEDS: amLODIPine BESYLATE 5 MG TABLET 10 MG PO ×2 (16:24→21:42)
[2022-09-26] MEDS: ACETAMINOPHEN 325 MG TABLET 650 MG PO (16:24)
[2022-09-26] MEDS: MORPHINE SULFATE (*CRX) 2 MG/ML INJ 1 MG IV PUSH (22:53)
[2022-09-26] MEDS: NITROGLYCERIN OINTMENT 1 INCH DOSE TRANSDERM (22:55)
--- NOTE | 2022-09-26 23:11 | PC.NURSE ---
Notified Dr. Zimmerman of elevated bp, received order for amodipine 10mg po x1 @1411. [id number] Notified Eh Cosme of bp increasing, left chest pain into, shoulder, back, and left arm of 10/20. Orders received and meds administered. @ this time, patient states pain relaxed and moved out of chest and back to just her shoulder and arm at 5/10.
--- NOTE | 2022-09-26 23:56 | PC.NURSE ---
chest pain a dull thud in her back only rated 2/10.
[2022-09-27] VITALS (14 sets, daily range): BP systolic 108–227; BP diastolic 53–88; PULSE 55–77; RESP 16–20; TEMP 36.2–36.7; O2SAT 96–99
[2022-09-27 05:24] LABS: Anion Gap 5 mmol/L (8-16); Blood Urea Nitrogen 12 mg/dL (7-17); Calcium 9.6 mg/dL (8.4-10.2); Carbon Dioxide 29 mmol/L (22-30); Chloride 102 mmol/L (98-107); Estimated CRCL calculation 45 ml/min; Estimated Glomerular Filt Rate 60; Glucose 110 mg/dL (65-110); Magnesium 2.2 mg/dL (1.6-2.3); Phosphorus 4.2 mg/dL (2.5-4.5); Potassium 3.5 mmol/L (3.4-5.0); Sodium 136 mmol/L (137-145)
[2022-09-27] MEDS: GABAPENTIN 300 MG CAPSULE BY MOUTH ×3 (06:08→22:59)
--- NOTE | 2022-09-27 07:24 | IVDEFINITY ---
Prior to administration of IV Definity the patient was educated on the risks and benefits of the imaging enhancing agent including potential adverse side effects. The patient verbalized understanding. Allergies were verified. No exclusion criteria were identified and at least one of the following inclusion criteria were met: 1) physician request, 2) patient technically difficult to image (per the [place] [employer] guidelines of two or more segments not discernable within the apical view), or 3) questionable left ventricular function. ?
[2022-09-27] MEDS: amLODIPine BESYLATE 5 MG TABLET 10 MG PO (08:52)
[2022-09-27] MEDS: lisinopriL 5 MG TABLET PO (08:52)
[2022-09-27] MEDS: SERTRALINE HCL 50 MG TABLET PO (08:52)
[2022-09-27] MEDS: FUROSEMIDE 20 MG TABLET BY MOUTH (08:52)
[2022-09-27] MEDS: ATORVASTATIN 40 MG TABLET 80 MG PO (08:52)
[2022-09-27] MEDS: SENNOSIDES 8.6 MG TABLET PO (08:52)
[2022-09-27] MEDS: POTASSIUM CHLORIDE 10 MEQ ER TABLET PO (08:52)
[2022-09-27] MEDS: ASPIRIN 325 MG ENTERIC TABLET PO (08:52)
[2022-09-27] MEDS: NITROGLYCERIN 0.2 MG/HR PATCH 1 PATCH TRANSDERM (08:53)
[2022-09-27] MEDS: ACETAMINOPHEN 325 MG TABLET 650 MG PO (10:16)
--- NOTE | 2022-09-27 10:53 | PM.IMPN ---
Progress Note: A&P Assessment and Plan (1) Bradycardia: Code(s): R00.1 - Bradycardia, unspecified Status: Acute Assessment and Plan: The patient presented to the emergency department for evaluation bradycardia. Metoprolol and donepezil were held. TSH was normal. EKG shows some ST T-wave abnormalities in the lateral leads. Echo showing EF 60-65% with Grade I diastolic dysfunction. Mild-moderate noted but possibly supravalvular stenosis. BP allowed to run higher since probably compensatory for low HR and that she is off metoprolol. HR better on tele. Monitor on tele. Cardiology consult for possible KARMEN to further evaluate the Echo findings. Doubt she will need PM at this time. (2) Urinary tract infection: Code(s): N39.0 - Urinary tract infection, site not specified Status: Acute Assessment and Plan: UA noted. UCx GNB. Continue Rocephin (3) Fatigue: Qualifiers: Fatigue type: unspecified Qualified Code(s): R53.83 - Other fatigue Code(s): R53.83 - Other fatigue Status: Acute Assessment and Plan: Related to above. PT/OT. (4) Hypertension: Qualifiers: Hypertension type: primary hypertension Qualified Code(s): I10 - Essential (primary) hypertension Code(s): I10 - Essential (primary) hypertension Status: Acute Assessment and Plan: Patient's blood pressure was reviewed on 09/27 Blood pressure better. Norvasc resumed yesterday and extra Norvasc given over night. Will continue to monitor. Add low dose lisinopril since HR better and she is off metoprolol. (5) Coronary artery disease: Code(s): I25.10 - Atherosclerotic heart disease of [place] coronary artery without angina pectoris Status: Acute Assessment and Plan: Patient with known CAD. Patient with CP last night. Treatment provide but no EKG. Check EKG and add Trop x1. Continue ASA and lipitor. Subjective Date/time seen: 09/27/22 10:53 Interval history: 82yo female with hx CVA, CAD and HTN here for weakness. Has multiple complaints today. Slept poorly last night. She is very concerned about her elevated BP. having chest pain overnight that was localized to left sternal area (points with one finger) that radiated to the left neck. Symptoms resolved with Morphine and NTP. Exam Narrative: AF 98.1 141/75 70 16 98% ra Gen - NARD Chest - clear bilaterally. CV - RRR S1/S2. Tele showing HR better in high 50's - 60 range Abd - Soft, ND/NT, +BS Ext - No pedal edema Psych - anxious mood Skin - Warm and dry Objective Data Vital Signs Vital Signs: Vital Signs - 24 hr 09/26/22 11:51 09/26/22 12:00 09/26/22 13:59 Temperature 98.1 F Pulse Rate 52 L Respiratory Rate 18 Blood Pressure 189/83 H 192/44 H Pulse Oximetry 96 96 Oxygen Delivery Room Air 09/26/22 13:59 09/26/22 14:00 09/26/22 14:00 Temperature Pulse Rate Respiratory Rate Blood Pressure 176/81 H 120/68 186/64 H Pulse Oximetry Oxygen Delivery 09/26/22 12:00 09/26/22 14:00 09/26/22 16:00 Temperature 98 F Pulse Rate 56 L 53 L 55 L Respiratory Rate 18 Blood Pressure 212/70 H Pulse Oximetry 98 Oxygen Delivery 09/26/22 17:43 09/26/22 16:00 09/26/22 16:00 Temperature Pulse Rate 55 L Respiratory Rate Blood Pressure 174/66 H 212/70 H Pulse Oximetry Oxygen Delivery 09/26/22 18:00 09/26/22 16:00 09/26/22 20:00 Temperature 97.1 F L Pulse Rate 55 L 55 L Respiratory Rate 16 Blood Pressure 190/50 H Pulse Oximetry 98 94 Oxygen Delivery Room Air 09/26/22 20:00 09/26/22 23:59 09/27/22 00:00 Temperature 97.6 F Pulse Rate 55 L 55 L 69 Respiratory Rate 16 16 16 Blood Pressure 227/72 H Pulse Oximetry 94 94 99 Oxygen Delivery Room Air Room Air 09/26/22 20:00 09/26/22 22:00 09/27/22 00:00 Temperature Pulse Rate 56 L 58 L 65 Respiratory Rate Blood Pressure Pulse O
--- NOTE | 2022-09-27 11:02 | ECG_ITS ---
Measurements Intervals [place] Rate: 58 P: 69 NM: 179 QRS: 14 QRSD: 97 T: 122 QT: 459 QTc: 452 Interpretive Statements SINUS BRADYCARDIA INFERIOR MYOCARDIAL INFARCTION , PROBABLY OLD [40+ ms Q WAVE AND/OR ST/T ABNORMALITY IN II/aVF] MODERATE T-WAVE ABNORMALITY, CONSIDER LATERAL ISCHEMIA [-0.1+ mV T WAVE IN I/aVL/V5/V6] ABNORMAL ECG COMPARED TO ECG 09/25/2022 14:08:16 NO SIGNIFICANT CHANGE Electronically Signed On 09-27-2022 16:10:32 CDT by Rodney Guallpa M.D.
--- NOTE | 2022-09-27 12:02 | PC.NURSE ---
Blood pressure 206/64. Dr. Guallpa at bedside discussing with patient.
--- NOTE | 2022-09-27 12:02 | PM.CNCAR ---
Assessment and Plan Assessment and plan (1) Bradycardia: Code(s): R00.1 - Bradycardia, unspecified Status: Acute (2) CAD (coronary artery disease): Qualifiers: Coronary Disease-Associated Artery/Lesion type: unspecified vessel or lesion type [place] vs. transplanted heart: [place] heart Associated angina: without angina Qualified Code(s): I25.10 - Atherosclerotic heart disease of [place] coronary artery without angina pectoris Code(s): I25.10 - Atherosclerotic heart disease of [place] coronary artery without angina pectoris Status: Acute (3) Aortic stenosis: Code(s): I35.0 - Nonrheumatic aortic (valve) stenosis Status: Acute Plan This is an 82-year-old woman with chronic coronary artery disease as described above she also has aortic valve stenosis which up to now has been found to be mild and asymptomatic. She an echocardiogram done during this hospitalization has yielded some findings that are conflicting and for that reason a transesophageal. Study is now being considered. Because of her bradycardia metoprolol has been discontinued and following this of course her blood pressure is elevated. I agree with the decision to start JESSICA-inhibitor therapy. I would also consider transitioning her from furosemide to chlorthalidone which is a more effective antihypertensive agent. When her blood pressure is improved I agree with the concept of planning esophageal echocardiogram. I would not proceed with that today since her blood pressure control is a more pressing issue and she is not NPO in preparation for a procedure like this. I will follow her with you through the weekend if she achieves a reasonable blood pressure control she can go home and have the KARMEN performed as an outpatient. If she is still in the hospital I can consider getting that done on Friday. Rodney Guallpa MD [facility] History of Present Illness History of Present Illness Consult date/time: 09/27/22 12:02 Reason For Visit: URI,BRADYCARDIA Narrative: This is a an 82-year-old woman who I see in my office with a history of coronary artery disease and aortic valve disease who I am seeing at the request of the hospitalist today primarily to consider performing a transesophageal echocardiogram. She was sent to the hospital from her PCP office yesterday because she says she has not been feeling well with symptoms of generalized weakness and was found to be bradycardic in the office and so she was sent to the emergency department. Her presenting rhythm was sinus rhythm with heart rate in the 40s. She otherwise was not in any significant distress in the emergency department she was admitted to the hospital for further evaluation to/observation. She reports that she has been feeling poorly with episodes of lightheadedness and possibly 1 episode of meenu syncope within the last couple of months she states this occurred while she was walking from her car into her home in her yd she fell suddenly and does not remember hitting the ground. She did not seek any medical attention at that time. The patient has a history of coronary artery disease which dates back to 2014 which he underwent angiography here at this hospital because of chest pain that was very atypical of angina she was found to have a chronic total occlusion of the right coronary artery which receives [id number] collateral filling and a high-grade lesion in a very small diagonal branch of the LAD. She had similar symptoms and underwent a follow-up angiography in 2016 at [facility] with identical findings. The patient in follow-up in our office had an echocardiogram done in 2020 because of a murmur of aortic stenosis she was found to have good left ventricular function and mild aortic valve disease with valve area of 1.8 cm2. After admission to this hospital she has been taken off of metoprolol which she was taking for her heart disease and hypertension. She was on
[2022-09-27 12:23] LABS: Troponin I < 0.012 ng/mL (0.000-0.034)
[2022-09-28] VITALS (17 sets, daily range): BP systolic 104–181; BP diastolic 46–102; PULSE 68–95; RESP 18–20; TEMP 36.4–38.2; O2SAT 94–99
[2022-09-28] MEDS: ACETAMINOPHEN/BUTALBITAL/CAFFEINE 325-50-40 MG TABLET (FIORICET) 1 TAB PO (03:55)
[2022-09-28 05:27] LABS: Anion Gap 8 mmol/L (8-16); Blood Urea Nitrogen 12 mg/dL (7-17); Calcium 9.5 mg/dL (8.4-10.2); Carbon Dioxide 27 mmol/L (22-30); Chloride 100 mmol/L (98-107); Estimated CRCL calculation 42 ml/min; Estimated Glomerular Filt Rate 53; Glucose 127 mg/dL (65-110); Potassium 3.7 mmol/L (3.4-5.0); Sodium 135 mmol/L (137-145)
[2022-09-28] MEDS: GABAPENTIN 300 MG CAPSULE BY MOUTH ×3 (05:50→21:02)
--- NOTE | 2022-09-28 09:00 | PM.PNCARD ---
Progress Note: A&P Assessment and Plan (1) Aortic stenosis: Code(s): I35.0 - Nonrheumatic aortic (valve) stenosis Status: Acute (2) Coronary artery disease: Code(s): I25.10 - Atherosclerotic heart disease of [place] coronary artery without angina pectoris Status: Acute (3) Bradycardia: Code(s): R00.1 - Bradycardia, unspecified Status: Acute Plan 82-year-old lady with chronic coronary artery disease as well as some degree of aortic valve stenosis. She was brought to the hospital at the request of her PCP because of bradycardia. She has been taken off of metoprolol. Heart rate is now in the 90s. Lisinopril has been added to her amlodipine for additional hypertension benefit. Blood pressure is now acceptable. In my opinion she is stable cardiac reilly for discharge. I am going to arrange for an outpatient transesophageal echocardiogram to clarify the aortic valve stenosis further. My clinical examination suggests that she does not have severe aortic valve stenosis. Transthoracic echocardiogram the during this hospital stay as mentioned in my previous note has some conflicting results regarding the severity of the . Rodney Guallpa MD [facility] Subjective Date/time seen: Date of service: 09/28/22 09:00 Interval history: Follow-up visit in this 82-year-old woman with chronic coronary artery disease as well as aortic valve stenosis of unclear severity. Patient was hospitalized couple of days ago because of concerning bradycardia which has resolved with discontinuance of her metoprolol. She feels relatively well this morning eating her breakfast and has no other complaints. Exam Const: General: comfortable and no acute distress HENMT: Mouth: Yes moist mucous membranes Eyes: Sclera: sclerae normal Neck: Neck: supple and no JVD Resp: Effort & Inspection: normal respiratory effort Auscultation: clear to auscultation bilaterally Cardio: Rate: regular rate Rhythm: regular rhythm Other: Grade 2/6 crescendo decrescendo murmur at the left sternal border and at the base GI: GI Palp: Yes Soft to palpation Auscultation: normal bowel sounds Skin: General skin exam: normal color Neuro: Other: Alert and oriented x3 Extrem: General: normal to inspection Objective Data Vital Signs Vital Signs: Vital Signs - 24 hr 09/27/22 10:00 09/27/22 10:09/27/22 12:00 Temperature 36.4 C L Pulse Rate 70 61 Respiratory Rate 16 Blood Pressure 141/75 H 206/64 H Pulse Oximetry 98 Oxygen Delivery 09/27/22 12:00 09/27/22 12:00 09/27/22 13:39 Temperature Pulse Rate 68 Respiratory Rate Blood Pressure Pulse Oximetry 98 Oxygen Delivery Room Air Room Air 09/27/22 15:09 09/27/22 16:00 09/27/22 14:00 Temperature 36.4 C Pulse Rate 56 L 77 Respiratory Rate 18 Blood Pressure 133/77 123/88 Pulse Oximetry 98 Oxygen Delivery 09/27/22 16:00 09/27/22 18:00 09/27/22 16:00 Temperature Pulse Rate 55 L 66 Respiratory Rate Blood Pressure Pulse Oximetry 98 Oxygen Delivery Room Air 09/27/22 20:00 09/27/22 23:28 09/27/22 20:00 Temperature 36.6 C 36.6 C Pulse Rate 73 74 Respiratory Rate 16 20 Blood Pressure 108/53 L 152/56 H Pulse Oximetry 98 98 99 Oxygen Delivery Room Air 09/27/22 20:00 09/27/22 22:00 09/28/22 00:00 Temperature Pulse Rate 59 L 69 76 Respiratory Rate Blood Pressure Pulse Oximetry Oxygen Delivery 09/28/22 00:00 09/28/22 02:00 09/28/22 04:00 Temperature 36.4 C Pulse Rate 82 87 Respiratory Rate 18 Blood Pressure 181/102 H Pulse Oximetry 99 Oxygen Delivery Room Air 09/28/22 04:00 09/28/22 04:00 09/28/22 04:30 Temperature Pulse Rate 92 Respiratory Rate Blood Pressure 140/55 L Pulse Oximetry 98 Oxygen Delivery Room Air 09/28/22 06:00 09/28/22 08:00 Temperature 36.8 C Pulse Rate 85 88 Respiratory Rate 20 Blood Pressure 158/69
[2022-09-28] MEDS: CEFDINIR 300 MG CAPSULE PO ×2 (10:16→21:02)
[2022-09-28] MEDS: NITROGLYCERIN 0.2 MG/HR PATCH 1 PATCH TRANSDERM (10:16)
[2022-09-28] MEDS: POTASSIUM CHLORIDE 10 MEQ ER TABLET PO (10:17)
[2022-09-28] MEDS: amLODIPine BESYLATE 5 MG TABLET 10 MG PO (10:17)
[2022-09-28] MEDS: lisinopriL 5 MG TABLET PO (10:17)
[2022-09-28] MEDS: ATORVASTATIN 40 MG TABLET 80 MG PO (10:17)
[2022-09-28] MEDS: SERTRALINE HCL 50 MG TABLET PO (10:17)
[2022-09-28] MEDS: FUROSEMIDE 20 MG TABLET BY MOUTH (10:17)
[2022-09-28] MEDS: SENNOSIDES 8.6 MG TABLET PO (10:17)
[2022-09-28] MEDS: ASPIRIN 325 MG ENTERIC TABLET PO (10:17)
[2022-09-28 11:25] LABS: Influenza A QL RT-PCR Negative (Negative); Influenza B QL RT-PCR Negative (Negative); RSV RNA, RT-PCR Negative (Negative); SARS-CoV-2 RNA PCR Positive (Negative)
[2022-09-28] MEDS: ACETAMINOPHEN 325 MG TABLET 650 MG PO ×2 (12:20→21:05)
--- NOTE | 2022-09-28 12:21 | PM.IMPN ---
Progress Note: A&P Assessment and Plan (1) COVID: Code(s): U07.1 - COVID-19 Status: Acute Assessment and Plan: Patient with cough and her caregiver was ill. Low grade fever now as well. Testing showed COVID positive today. RSV and influenza negative. Risk factors that increase risk for severe COVID include CAD, dementia and age. Does not have O2 requirement. CXR on 09/25 was clear. Repeat CXR. Check markers. Do not have Paxlovid in the hospital. COVID management per UpToDate was reviewed. Recommended that hospitalized patient who have risk factors for severe disease but hospitalized for non COVID reasons receive remdesivir. Dexa not recommended at this time Add Remdesivir. Monitor. (2) Bradycardia: Code(s): R00.1 - Bradycardia, unspecified Status: Acute Assessment and Plan: The patient presented to the emergency department for evaluation of bradycardia. Metoprolol and donepezil were held. TSH was normal. EKG shows some ST T-wave abnormalities in the lateral leads. Echo showing EF 60-65% with Grade I diastolic dysfunction. BP was allowed to run higher since probably compensatory for low HR and that she is off metoprolol. HR improved. Able to advance medications for her BP. Monitor on tele. Doubt she will need PM at this time. (3) Aortic stenosis: Code(s): I35.0 - Nonrheumatic aortic (valve) stenosis Status: Acute Assessment and Plan: Echo also showed mild-moderate noted but possibly supravalvular stenosis. Cardiology consult for possible KARMEN to further evaluate the Echo findings. Plan for this in the outpatient setting but will now be postponed until she is over her COVID. (4) Urinary tract infection: Code(s): N39.0 - Urinary tract infection, site not specified Status: Acute Assessment and Plan: UA noted. UCx GKlebsiella that is relatively blevins-sensitive. Treated with Rocephin. Change to oral abx. (5) Fatigue: Qualifiers: Fatigue type: unspecified Qualified Code(s): R53.83 - Other fatigue Code(s): R53.83 - Other fatigue Status: Acute Assessment and Plan: Related to above. PT/OT. (6) Hypertension: Qualifiers: Hypertension type: primary hypertension Qualified Code(s): I10 - Essential (primary) hypertension Code(s): I10 - Essential (primary) hypertension Status: Acute Assessment and Plan: Patient's blood pressure was reviewed on 09/27 Blood pressure better overall. Continue Norvasc and lisinopril. Will continue to monitor. Continue to hold metoprolol. Advance lisinopril as needed. (7) Coronary artery disease: Code(s): I25.10 - Atherosclerotic heart disease of [place] coronary artery without angina pectoris Status: Acute Assessment and Plan: Patient with known CAD. Stable. Continue ASA and lipitor. (8) Memory loss: Code(s): R41.3 - Other amnesia Status: Acute Assessment and Plan: HR better. Will resume Aricept and monitor on tele. Subjective Date/time seen: 09/28/22 12:21 Interval history: 82yo female with hx CVA, CAD and HTN here for weakness. Patient slept poorly last night. Her caregiver is sick but was negative for COVID (per family). Slight cough today. Exam Narrative: Tm 100.8 149/71 95 19 94% ra Gen - NARD lying almost flat in bed Chest - few basilar rhonchi o/w clear CV - RRR S1/S2. Tele showing no significant dysrhythmias Abd - Soft, ND/NT, +BS Ext - No pedal edema Psych - nml mood and affect Skin - tachy Objective Data Vital Signs Vital Signs: Vital Signs - 24 hr 09/27/22 13:39 09/27/22 15:09 09/27/22 16:00 Temperature 97.6 F Pulse Rate 56 L Respiratory Rate 18 Blood Pressure 133/77 123/88 Pulse Oximetry 98 Oxygen Delivery Room Air 09/27/22 14:00 09/27/22 16:00 09/27/22 18:00 Temperature Pulse Rate 77 55 L 66 Respiratory Rate Blood Pressure Puls
[2022-09-28 13:50] LABS: Basophils Percent Auto 0.4 % (0.2-1.2); Eosinophils Percent Auto 0.3 % (0-4.4); Hematocrit 40.2 % (37.0-47.0); Hemoglobin 13.3 g/dL (12.0-15.0); Immature Granulocyte Absolute 0.02 K/mm3 (0.00-0.031); Immature Granulocyte Percent A 0.3 % (0-0.5); Lymphocytes Absolute Auto 0.76 K/mm3 (0.9-3.2); Lymphocytes Percent Auto 10.2 % (18.3-44.2); Mean Corpuscular HGB Conc 33.1 g/dl (32-36); Mean Corpuscular Hemoglobin 28.2 pg (26-34); Mean Corpuscular Volume 85.4 fl (80-100); Monocytes Absolute Auto 0.7 K/mm3 (0.1-0.6); Neutrophils Percent Auto 79.8 % (45.5-73.1); Platelet Count Result 222 k/mm3 (150-375); Red Blood Count 4.71 M/mm3 (4.2-5.4); Red Cell Distribution Width 14.1 % (11.5-14.5); White Blood Count 7.5 K/mm3 (4.5-10.0)
[2022-09-28 14:06] LABS: Alanine Aminotransferase 15 U/L (6-35); Estimated CRCL calculation 38 ml/min; Estimated Glomerular Filt Rate 48; Prothrombin Time 13.5 Seconds (11.1-14.7)
[2022-09-28 14:19] LABS: Partial Thromboplastin Time 29.3 SECONDS (22.3-36.8)
[2022-09-28 14:31] LABS: CRP 3.7 mg/dL (<1.0); Lactate Dehydrogenase 181 U/L (120-246)
[2022-09-28] MEDS: DONEPEZIL HCL 10 MG TABLET PO ×2 (15:29→21:02)
[2022-09-28] MEDS: REMDESIVIR 200 MG/NS 250 ML 200 MG/250 ML BAG 250 MG IVPB (15:29)
--- NOTE | 2022-09-28 15:58 | PCPTNOTE ---
Attempted to see pt for physical therapy-pt refused this date due to not feeling well. Will cont per plan
[2022-09-29] VITALS (14 sets, daily range): BP systolic 119–181; BP diastolic 48–58; PULSE 70–100; RESP 16–22; TEMP 36.4–37.2; O2SAT 93–100
[2022-09-29] MEDS: GABAPENTIN 300 MG CAPSULE BY MOUTH ×3 (06:00→21:35)
[2022-09-29 06:16] LABS: Basophils Percent Auto 0.3 % (0.2-1.2); Eosinophils Percent Auto 0.3 % (0-4.4); Hematocrit 40.1 % (37.0-47.0); Hemoglobin 13.1 g/dL (12.0-15.0); Immature Granulocyte Absolute 0.02 K/mm3 (0.00-0.031); Immature Granulocyte Percent A 0.3 % (0-0.5); Lymphocytes Absolute Auto 0.83 K/mm3 (0.9-3.2); Lymphocytes Percent Auto 13.2 % (18.3-44.2); Mean Corpuscular HGB Conc 32.7 g/dl (32-36); Mean Corpuscular Hemoglobin 28.1 pg (26-34); Mean Corpuscular Volume 86.1 fl (80-100); Mean Platelet Volume 10.3 fl (7.4-10.4); Monocytes Absolute Auto 0.7 K/mm3 (0.1-0.6); Monocytes Percent Auto 10.7 % (2.6-8.5); Neutrophils Absolute Auto 4.7 K/mm3 (1.3-6.7); Neutrophils Percent Auto 75.2 % (45.5-73.1); Platelet Count Result 187 k/mm3 (150-375); Red Blood Count 4.66 M/mm3 (4.2-5.4); Red Cell Distribution Width 14.5 % (11.5-14.5); White Blood Count 6.3 K/mm3 (4.5-10.0)
[2022-09-29 06:27] LABS: Prothrombin Time 13.6 Seconds (11.1-14.7)
[2022-09-29 06:37] LABS: Alanine Aminotransferase 16 U/L (6-35); Albumin Level 3.8 g/dL (3.5-5.1); Alkaline Phosphatase 96 U/L (38-126); Anion Gap 5 mmol/L (8-16); Aspartate Amino Transferase 26 U/L (14-36); Bilirubin,Total 0.7 mg/dL (0.2-1.3); Blood Urea Nitrogen 12 mg/dL (7-17); Calcium 9.2 mg/dL (8.4-10.2); Carbon Dioxide 29 mmol/L (22-30); Chloride 99 mmol/L (98-107); Estimated CRCL calculation 42 ml/min; Estimated Glomerular Filt Rate 53; Glucose 96 mg/dL (65-110); Potassium 3.2 mmol/L (3.4-5.0); Sodium 133 mmol/L (137-145)
[2022-09-29] MEDS: SERTRALINE HCL 50 MG TABLET PO (10:07)
[2022-09-29] MEDS: POTASSIUM CHLORIDE 10 MEQ ER TABLET PO (10:07)
[2022-09-29] MEDS: FUROSEMIDE 20 MG TABLET BY MOUTH (10:07)
[2022-09-29] MEDS: NITROGLYCERIN 0.2 MG/HR PATCH 1 PATCH TRANSDERM (10:08)
[2022-09-29] MEDS: amLODIPine BESYLATE 5 MG TABLET 10 MG PO (10:08)
[2022-09-29] MEDS: ASPIRIN 325 MG ENTERIC TABLET PO (10:09)
[2022-09-29] MEDS: SENNOSIDES 8.6 MG TABLET PO (10:09)
[2022-09-29] MEDS: ATORVASTATIN 40 MG TABLET 80 MG PO (10:09)
[2022-09-29] MEDS: CEFDINIR 300 MG CAPSULE PO ×2 (10:09→21:35)
[2022-09-29] MEDS: lisinopriL 10 MG TABLET PO (10:09)
[2022-09-29] MEDS: REMDESIVIR 100 MG/NS 250 ML 100 MG/250 ML BAG 250 MG IVPB (10:10)
[2022-09-29] MEDS: DONEPEZIL HCL 10 MG TABLET PO ×2 (10:10→21:35)
--- NOTE | 2022-09-29 14:14 | PM.IMPN ---
Progress Note: A&P Assessment and Plan (1) COVID: Code(s): U07.1 - COVID-19 Status: Acute Assessment and Plan: Patient with cough and her caregiver was ill. Low grade fever noted. Testing showed COVID positive 09/28. RSV and influenza negative. Risk factors that increase risk for severe COVID include CAD, dementia and age. Does not have O2 requirement. CXR on 09/25 was clear. Repeat CXR 09/28 showing mild airspace opacities in the lower lung zones. COVID markers showing CRP 3.7, LDH normal. ferritin normal. Do not have Paxlovid in the hospital. COVID management per UpToDate was reviewed. Recommended that hospitalized patient who have risk factors for severe disease but hospitalized for non COVID reasons receive remdesivir x 3 days. Dexa not recommended at this time. Remdesivir added. Monitor. (2) Bradycardia: Code(s): R00.1 - Bradycardia, unspecified Status: Acute Assessment and Plan: The patient presented to the emergency department for evaluation of bradycardia. Metoprolol and donepezil were held. TSH was normal. EKG shows some ST T-wave abnormalities in the lateral leads. Echo showing EF 60-65% with Grade I diastolic dysfunction. BP was allowed to run higher since probably compensatory for low HR and that she is off metoprolol. HR improved. Able to advance medications for her BP. Aricept added back and she is tolerating this. Monitor on tele. Doubt she will need PM at this time. (3) Aortic stenosis: Code(s): I35.0 - Nonrheumatic aortic (valve) stenosis Status: Acute Assessment and Plan: Echo also showed mild-moderate noted but possibly supravalvular stenosis. Cardiology consulted. Plan for outpatient KARMEN but will now be postponed until she is over her COVID. Appreciate Cardiology input. (4) Urinary tract infection: Code(s): N39.0 - Urinary tract infection, site not specified Status: Acute Assessment and Plan: UA noted. UCx GKlebsiella that is relatively blevins-sensitive. Treated with Rocephin. Changed to oral abx. (5) Fatigue: Qualifiers: Fatigue type: unspecified Qualified Code(s): R53.83 - Other fatigue Code(s): R53.83 - Other fatigue Status: Acute Assessment and Plan: Related to above. PT/OT. (6) Hypertension: Qualifiers: Hypertension type: primary hypertension Qualified Code(s): I10 - Essential (primary) hypertension Code(s): I10 - Essential (primary) hypertension Status: Acute Assessment and Plan: Patient's blood pressure was reviewed on 09/29 Blood pressure noted. Continue Norvasc and lisinopril. Will continue to monitor. Continue to hold metoprolol. Advance lisinopril (7) Coronary artery disease: Code(s): I25.10 - Atherosclerotic heart disease of [place] coronary artery without angina pectoris Status: Acute Assessment and Plan: Patient with known CAD. Stable. Continue ASA and lipitor. (8) Memory loss: Code(s): R41.3 - Other amnesia Status: Acute Assessment and Plan: HR better. Aricept resumed and she is tolerating this. Monitor on tele. Subjective Date/time seen: 09/29/22 14:14 Interval history: 82yo female with hx CVA, CAD and HTN here for weakness. She was diagnosed with COVID yesterday after beginning to feel bad and a sub acute care nurse hasa also been ill. She feels better today. Minimal cough productive of clear sputum. no Cp or SOB. Exam Narrative: Tm 100.8 97.7 137/58 80 18 96% ra Gen - NARD lying almost flat in bed Chest - distant, clear BS. nml RR CV - RRR S1/S2. Tele showing no significant dysrhythmias Abd - Soft, ND/NT, +BS Ext - No pedal edema Psych - nml mood and affect Skin -warm and dry Objective Data Vital Signs Vital Signs: Vital Signs - 24 hr 09/28/22 14:18 09/28/22 16:00 09/28/22 16:00 Temperature 99.1 F Pulse Rate 72 Respiratory Rate Blood Pressure Puls
[2022-09-29] MEDS: POTASSIUM CHLORIDE 20 MEQ ER TABLET 40 MEQ PO (15:36)
[2022-09-29] MEDS: ONDANSETRON INJ 4 MG/2 ML VIAL IV PUSH (16:49)
[2022-09-29] MEDS: PANTOPRAZOLE SODIUM IV 40 MG VIAL IV PUSH (18:13)
[2022-09-29 19:07] LABS: Alanine Aminotransferase 17 U/L (6-35); Albumin Level 3.8 g/dL (3.5-5.1); Alkaline Phosphatase 89 U/L (38-126); Anion Gap 4 mmol/L (8-16); Aspartate Amino Transferase 30 U/L (14-36); Bilirubin,Total 0.6 mg/dL (0.2-1.3); Blood Urea Nitrogen 17 mg/dL (7-17); Calcium 9.7 mg/dL (8.4-10.2); Carbon Dioxide 26 mmol/L (22-30); Chloride 101 mmol/L (98-107); Estimated CRCL calculation 38 ml/min; Estimated Glomerular Filt Rate 48; Glucose 111 mg/dL (65-110); Lipase 196 U/L (23-300); Potassium 3.6 mmol/L (3.4-5.0); Sodium 131 mmol/L (137-145)
--- NOTE | 2022-09-29 19:24 | PC.NURSE ---
This patient, Kylie Nunn, was transferred to [[id number] ] on 09/29/22 at 1924. Personal belongings sent with patient. Report given to [Joselyn BELL ]. Appropriate documentation sent with patient.
[2022-09-29 22:39] LABS: Toxigenic C. Diff NEGATIVE (NEGATIVE)
[2022-09-30] VITALS (12 sets, daily range): BP systolic 116–166; BP diastolic 44–70; PULSE 65–77; RESP 14–17; TEMP 36.6–37.4; O2SAT 93–100
[2022-09-30] MEDS: GABAPENTIN 300 MG CAPSULE BY MOUTH ×3 (05:40→21:15)
[2022-09-30 06:28] LABS: Prothrombin Time 13.8 Seconds (11.1-14.7)
[2022-09-30 07:12] LABS: Alanine Aminotransferase 19 U/L (6-35); Anion Gap 2 mmol/L (8-16); Blood Urea Nitrogen 16 mg/dL (7-17); Calcium 9.3 mg/dL (8.4-10.2); Carbon Dioxide 27 mmol/L (22-30); Chloride 102 mmol/L (98-107); Estimated CRCL calculation 42 ml/min; Estimated Glomerular Filt Rate 53; Glucose 86 mg/dL (65-110); Potassium 3.5 mmol/L (3.4-5.0); Sodium 131 mmol/L (137-145)
[2022-09-30] MEDS: PANTOPRAZOLE SODIUM IV 40 MG VIAL IV PUSH (10:00)
[2022-09-30] MEDS: NITROGLYCERIN 0.2 MG/HR PATCH 1 PATCH TRANSDERM (10:00)
[2022-09-30] MEDS: lisinopriL 10 MG TABLET PO (10:01)
[2022-09-30] MEDS: amLODIPine BESYLATE 5 MG TABLET 10 MG PO (10:01)
[2022-09-30] MEDS: SENNOSIDES 8.6 MG TABLET PO (10:01)
[2022-09-30] MEDS: ERGOCALCIFEROL 50,000 UNITS CAPSULE 50000 UNITS PO (10:02)
[2022-09-30] MEDS: SERTRALINE HCL 50 MG TABLET PO (10:02)
[2022-09-30] MEDS: POTASSIUM CHLORIDE 10 MEQ ER TABLET PO (10:02)
[2022-09-30] MEDS: ASPIRIN 325 MG ENTERIC TABLET PO (10:02)
[2022-09-30] MEDS: CEFDINIR 300 MG CAPSULE PO ×2 (10:02→21:15)
[2022-09-30] MEDS: DONEPEZIL HCL 10 MG TABLET PO ×2 (10:02→21:15)
[2022-09-30] MEDS: FUROSEMIDE 20 MG TABLET BY MOUTH (10:02)
[2022-09-30] MEDS: REMDESIVIR 100 MG/NS 250 ML 100 MG/250 ML BAG 250 MG IVPB (10:03)
[2022-09-30] MEDS: ATORVASTATIN 40 MG TABLET 80 MG PO (10:03)
--- NOTE | 2022-09-30 12:13 | PM.IMPN ---
Progress Note: A&P Assessment and Plan (1) COVID: Code(s): U07.1 - COVID-19 Status: Acute Assessment and Plan: Patient with cough and her caregiver was ill. Low grade fever noted. Testing showed COVID positive 09/28. RSV and influenza negative. Risk factors that increase risk for severe COVID include CAD, dementia and age. Does not have O2 requirement. CXR on 09/25 was clear. Repeat CXR 09/28 showing mild airspace opacities in the lower lung zones. COVID markers showing CRP 3.7, LDH normal. ferritin normal. Do not have Paxlovid in the hospital. COVID management per UpToDate was reviewed. Recommended that hospitalized patient who have risk factors for severe disease but hospitalized for non COVID reasons receive remdesivir x 3 days. Dexa not recommended at this time. Remdesivir added. Now having diarrhea felt related to COVID. Monitor. (2) Diarrhea: Code(s): R19.7 - Diarrhea, unspecified Status: Acute Assessment and Plan: CDiff negative. CT A/P showing liquid stool in colon c/w diarrhea. Suspect diarrhea is from COVID. Abd is soft. Will continue current diet. Continue to monitor. Plan discharge once diarrhea improves. (3) Bradycardia: Code(s): R00.1 - Bradycardia, unspecified Status: Acute Assessment and Plan: The patient presented to the emergency department for evaluation of bradycardia. Metoprolol and donepezil were held. TSH was normal. EKG shows some ST T-wave abnormalities in the lateral leads. Echo showing EF 60-65% with Grade I diastolic dysfunction. BP was allowed to run higher since probably compensatory for low HR and that she is off metoprolol. HR improved. Able to advance medications for her BP. Aricept added back and she is tolerating this. Okay to stop tele. (4) Aortic stenosis: Code(s): I35.0 - Nonrheumatic aortic (valve) stenosis Status: Acute Assessment and Plan: Echo also showed mild-moderate noted but possibly supravalvular stenosis. Cardiology consulted. Plan for outpatient KARMEN but will now be postponed until she is over her COVID. Appreciate Cardiology input. (5) Urinary tract infection: Code(s): N39.0 - Urinary tract infection, site not specified Status: Acute Assessment and Plan: UA noted. UCx Klebsiella that is relatively blevins-sensitive. Treated with Rocephin. Changed to oral abx. (6) Fatigue: Qualifiers: Fatigue type: unspecified Qualified Code(s): R53.83 - Other fatigue Code(s): R53.83 - Other fatigue Status: Acute Assessment and Plan: Related to above. PT/OT. (7) Hypertension: Qualifiers: Hypertension type: primary hypertension Qualified Code(s): I10 - Essential (primary) hypertension Code(s): I10 - Essential (primary) hypertension Status: Acute Assessment and Plan: Patient's blood pressure was reviewed on 09/30 Blood pressure reasonable. Continue Norvasc and lisinopril. Will continue to monitor. Continue to hold metoprolol. Continue lisinopril and norvasc (8) Coronary artery disease: Code(s): I25.10 - Atherosclerotic heart disease of [place] coronary artery without angina pectoris Status: Acute Assessment and Plan: Patient with known CAD. Stable. Continue ASA and lipitor. (9) Memory loss: Code(s): R41.3 - Other amnesia Status: Acute Assessment and Plan: HR better. Aricept resumed and she is tolerating this. Monitor on tele. Subjective Date/time seen: 09/30/22 12:13 Interval history: 82yo female with hx CVA, CAD and HTN here for weakness. Minimal cough. No CP or SOB. No melana or hematochezia. Some crampy abd pain. Having persistent diarrhea. Exam Narrative: AF 99.4 166/44 68 14 100% ra Gen - NARD Chest - distant, clear BS. nml RR CV - RRR S1/S2. Tele showing no significant dysrhythmias Abd - Soft, ND/NT, +BS Ext - No pedal edema Psych - nml mood and
[2022-10-01 05:18] VITALS: BP 100/61; PULSE 71; RESP 18; TEMP 37; O2SAT 96
[2022-10-01] MEDS: GABAPENTIN 300 MG CAPSULE BY MOUTH (05:21)
[2022-10-01 05:42] LABS: Alanine Aminotransferase 21 U/L (6-35); Estimated CRCL calculation 45 ml/min; Estimated Glomerular Filt Rate 60
[2022-10-01 05:52] LABS: Prothrombin Time 13.9 Seconds (11.1-14.7)
[2022-10-01 10:00] VITALS: BP 108/64; PULSE 70; RESP 18; TEMP 36.8; O2SAT 97
[2022-10-01] MEDS: ASPIRIN 325 MG ENTERIC TABLET PO (10:06)
[2022-10-01] MEDS: CEFDINIR 300 MG CAPSULE PO (10:06)
[2022-10-01] MEDS: DONEPEZIL HCL 10 MG TABLET PO (10:06)
[2022-10-01] MEDS: PANTOPRAZOLE SODIUM IV 40 MG VIAL IV PUSH (10:07)
[2022-10-01] MEDS: SERTRALINE HCL 50 MG TABLET PO (10:07)
[2022-10-01] MEDS: ATORVASTATIN 40 MG TABLET 80 MG PO (10:07)
[2022-10-01] MEDS: lisinopriL 10 MG TABLET PO (10:07)
[2022-10-01] MEDS: NITROGLYCERIN 0.2 MG/HR PATCH 1 PATCH TRANSDERM (10:07)
[2022-10-01] MEDS: POTASSIUM CHLORIDE 10 MEQ ER TABLET PO (10:07)
[2022-10-01 10:08] VITALS: BP 167/45; PULSE 67; RESP 14; TEMP 36.7; O2SAT 95
[2022-10-01] MEDS: SENNOSIDES 8.6 MG TABLET PO (10:08)
[2022-10-01] MEDS: REMDESIVIR 100 MG/NS 250 ML 100 MG/250 ML BAG 250 MG IVPB (10:08)
[2022-10-01] MEDS: FUROSEMIDE 20 MG TABLET BY MOUTH (10:08)
[2022-10-01] MEDS: amLODIPine BESYLATE 5 MG TABLET 10 MG PO (10:10)
[2022-10-01 14:00] VITALS: BP 128/62; PULSE 68; RESP 17; TEMP 36.6; O2SAT 97
--- NOTE | 2022-10-01 15:39 | PM.DS ---
DS: Admitting Diagnosis Discharge Date 10/01/22 Admitting Diagnosis Weakness DS: Discharge Diagnosis Discharge Diagnosis (1) COVID: Code(s): U07.1 - COVID-19 Status: Acute (2) Diarrhea: Code(s): R19.7 - Diarrhea, unspecified Status: Acute (3) Bradycardia: Code(s): R00.1 - Bradycardia, unspecified Status: Acute (4) Aortic stenosis: Code(s): I35.0 - Nonrheumatic aortic (valve) stenosis Status: Acute (5) Urinary tract infection: Code(s): N39.0 - Urinary tract infection, site not specified Status: Acute (6) Fatigue: Qualifiers: Fatigue type: unspecified Qualified Code(s): R53.83 - Other fatigue Code(s): R53.83 - Other fatigue Status: Acute (7) Hypertension: Qualifiers: Hypertension type: primary hypertension Qualified Code(s): I10 - Essential (primary) hypertension Code(s): I10 - Essential (primary) hypertension Status: Acute (8) Coronary artery disease: Code(s): I25.10 - Atherosclerotic heart disease of [place] coronary artery without angina pectoris Status: Acute (9) Memory loss: Code(s): R41.3 - Other amnesia Status: Acute DS: Summary Hospital Course Reason for hospitalization: 82yo female with hx CVA, CAD and HTN here for weakness. Please see H&P for details Hospital Course: The patient presented to the emergency department for evaluation of weakness and found to have bradycardia. Metoprolol and donepezil were held. TSH was normal. EKG shows ST T-wave abnormalities in the lateral leads. Echo showing EF 60-65% with Grade I diastolic dysfunction. BP was allowed to run higher since probably compensatory for low HR and that she was off metoprolol. HR improved. Able to add Lisinopril for her BP. Aricept was eventually able to be added back. Echo also showed mild-moderate aortic stenosis noted but possibly supravalvular stenosis. Cardiology consulted. Plan for outpatient [facility]. Patient found to have a UTI. UA noted. UCx growing Klebsiella that is relatively blevins-sensitive. Treated with Rocephin and then changed to oral abx. She worked with PT/OT. Nearing the time for discharge, the patient developed a cough and her caregiver was ill recently. The patient had low grade fever noted. She was COVID positive 09/28. RSV and influenza negative. Risk factors that increase her risk for severe COVID include CAD, dementia and age. She did not have O2 requirement. CXR on 09/25 was clear. Repeat CXR 09/28 showing mild airspace opacities in the lower lung zones. COVID markers showing CRP 3.7, LDH normal, ferritin normal. Do not have Paxlovid in the hospital. COVID management per [employer] was reviewed. Recommended that hospitalized patient who have risk factors for severe disease but hospitalized for non COVID reasons receive remdesivir x 3 days. Dexa was not recommended. Remdesivir was added. She began to have diarrhea as well. CDiff negative. CT A/P showing liquid stool in colon c/w diarrhea. Suspect diarrhea is from COVID. Abd was soft. Her diarrhea resolved. She is eating well. She feels ready for discharge. She overall did well and was able to be discharged home on 10/01/22. Discussed with dtr as well. Status at Discharge Cognitive/behavioral status at discharge: stable Time Spent with Patient Time attestation: Total time spent providing and/or coordinating discharge services: 35 minutes Time spent: Greater than 30 minutes Exam Narrative: AF 98.0 167/45 67 14 95% ra Gen - NARD Chest - clear anteriorly and in the flanks, nml RR CV - RRR S1/S2 Abd - Soft, ND, +BS, mild upper quadrant pain Ext - No pedal edema Psych - nml mood and affect Skin -warm and dry DS: Data Data Completed and Pending Labs on day of discharge: Labs from last 24 hours 10/01/22 05:17 PT 13.9 INR 1.0 Creatinine 0.90 Estim Creat Clear Calc 45 Estimated GFR 60 ALT 21 Discharge P
--- NOTE | 2022-10-09 09:34 | PC.NURSE ---
Stool culture is negative. Dr. Dannie west.
== END 2022-10-01 17:20 | disposition home or self-care (01) | DRG 308 ==
LOC: ANHED 15:19 → ANHIMU 16:10 → ANH2MED 09-29 18:46
PROVIDERS: Nurse Practitioner; Physician Assistant; Admitting Provider Internal Medicine; Emergency Provider Emergency Medicine; PCP Internal Medicine; Visit Provider Internal Medicine
DX: R00.1 Bradycardia, unspecified (principal); U07.1 COVID-19; N39.0 Urinary tract infection, site not specified; B96.1 Klebsiella pneumoniae [K. pneumoniae] as the cause of diseases classified elsewhere; R19.7 Diarrhea, unspecified; M19.90 Unspecified osteoarthritis, unspecified site; I25.10 Atherosclerotic heart disease of native coronary artery without angina pectoris; I25.82 Chronic total occlusion of coronary artery; E78.5 Hyperlipidemia, unspecified; I10 Essential (primary) hypertension; R41.3 Other amnesia; I35.0 Nonrheumatic aortic (valve) stenosis; Z87.891 Personal history of nicotine dependence; Z95.5 Presence of coronary angioplasty implant and graft; Z90.710 Acquired absence of both cervix and uterus; Z86.73 Personal history of transient ischemic attack (TIA), and cerebral infarction without residual deficits; Z86.11 Personal history of tuberculosis; Z79.82 Long term (current) use of aspirin
CPT/HCPCS: 36415; 71045; 74176; 80048; 80053; 80069; 81001; 82565; 82728; 83615; 83690; 83735; 84443; 84460; 84484; 85025; 85027; 85610; 85730; 86140; 87045; 87077; 87086; 87186; 87427; 87449; 87493; 87637; 93005; 93970; 96365; 96375; 97110; 97116; 97161; 97165; 97530; 99285; A9270; C8929; C9113; G0378; J0248; J0696; J2270; J2405; J7030; Q9957

== ENCOUNTER 2022-10-10 13:50 | Outpatient (CLI) | payer MEDICARE, MEDICAID, SELFPAY ==
[2022-10-10 19:51] LABS: Anion Gap 8 mmol/L (8-16); Blood Urea Nitrogen 15 mg/dL (7-17); Calcium 9.7 mg/dL (8.4-10.2); Carbon Dioxide 30 mmol/L (22-30); Chloride 100 mmol/L (98-107); Estimated Glomerular Filt Rate 60; Glucose 94 mg/dL (65-110); Potassium 4.5 mmol/L (3.4-5.0); Sodium 138 mmol/L (137-145)
== END 2022-10-10 13:51 | disposition home or self-care (01) ==
LOC: ANHGOSHLAB 13:53
PROVIDERS: PCP Internal Medicine; Visit Provider Nurse Practitioner
DX: E87.1 Hypo-osmolality and hyponatremia (principal)
CPT/HCPCS: 36415; 80048

== ENCOUNTER 2022-10-25 19:09 | Outpatient (NON) | payer MEDICARE, MEDICAID, SELFPAY | END 2022-10-25 19:10 | disposition home or self-care (01) | LOC: ANHLAB 19:11 | PROVIDERS: PCP Internal Medicine; Visit Provider Clinical Nurse Specialist | DX: R39.9 Unspecified symptoms and signs involving the genitourinary system (principal) | CPT/HCPCS: 87077; 87086; 87186 ==

== ENCOUNTER 2022-11-11 16:49 | Emergency (ER) | payer MEDICARE, MEDICAID, SELFPAY ==
--- NOTE | ~2022-11-11 | CT_ITS ---
EXAMINATION: CT brain wo con DATE: 11/11/2022 17:35 INDICATION: fall 10 days ago/RIGHT EYE BRUISING AND HEADACHE . TECHNIQUE: Computed tomography (CT) of the head was performed without intravenous contrast. The mA wa s adjusted according to patient size. Iterative reconstruction technique was employed. The dose-lengt h product was 681.00 mGy-cm. COMPARISON: 05/03/2022. FINDINGS: No acute intracranial hemorrhage or extra-axial fluid collection. No hydrocephalus, mass, or herniation. No acute ischemic infarct. Unremarkable dural venous sinus attenuation. No acute osseous abnormality. Right frontal contusion. Trace left mastoid fluid without erosion or fracture, the remaining aerated spaces are clear. Mild atrophy and chronic white matter change. Atherosclerotic intracranial calcification. Old right b eva ganglia lacunar and left occipital infarcts. IMPRESSION: No acute intracranial process. Reviewed, dictated and finalized at location K.
--- NOTE | ~2022-11-11 | CT_ITS ---
EXAMINATION: CT facial bones wo con DATE: 11/11/2022 17:36 INDICATION: fall 10 days ago/RIGHT EYE BRUISING AND HEADACHE . TECHNIQUE: Computed tomography (CT) of the facial bones and maxillofacial region was performed withou t intravenous contrast. Automated exposure control and iterative reconstruction technique were employ ed. The dose-length product was 275.97 mGy-cm. COMPARISON: None. FINDINGS: Soft Tissues: No significant superficial soft tissue swelling. Facial bones: No acute fracture. No lytic or blastic process. Eyes: The globes are intact. The soft tissue planes of the orbits are maintained. Paranasal Sinuses: Trace left mastoid fluid, without erosion or fracture. The remaining visualized a erated spaces are clear. Foreign Bodies: No radiopaque foreign bodies. Other Findings: Degenerative changes in the cervical spine. IMPRESSION: No evidence of acute facial bone fracture. Reviewed, dictated and finalized at location K.
[2022-11-11 16:49] VITALS: BP 188/60; PULSE 88; RESP 18; TEMP 37.2; O2SAT 97
--- NOTE | 2022-11-11 16:57 | ED.FALL ---
HPI - Fall General Chief Complaint: Fall Stated Complaint: fall 10 days ago; headaches and nausea since Time Seen by Provider: 11/11/22 16:57 Source: patient and RN notes reviewed Mode of arrival: ambulatory Limitations: no limitations History of Present Illness complaint: fall Onset (ago): day(s) (10) Fall from: standing Fall witnessed: no Place fall occurred: home Loss of consciousness: yes Length of LOC: minutes(s) ( unknown) Prolonged down time: unclear Symptoms prior to fall: lightheadedness Location of injury: face Associated symptoms (after fall): other ( nausea vomiting diarrhea) Related Data Home Medications Medication Instructions Recorded Confirmed aspirin 325 mg tablet,delayed 325 mg PO DAILY 01/27/19 11/11/22 release fluticasone propionate 50 1 spray intranasal DAILY PRN 01/27/19 11/11/22 mcg/actuation nasal Allergy Symptoms spray,suspension nitroglycerin 0.2 mg/hr 1 patch transdermal DAILY 01/27/19 11/11/22 transdermal 24 hour patch acetaminophen 500 mg tablet 500 mg PO Q6H PRN Breakthrough Pain 01/12/20 11/11/22 sennosides 8.6 mg tablet (Senokot) 8.6 mg PO DAILY 09/06/20 11/11/22 atorvastatin 40 mg tablet 40 mg PO QHS 10/10/22 11/11/22 chlorthalidone 25 mg tablet 25 mg PO DAILY 11/11/22 11/11/22 memantine 10 mg tablet 10 mg PO DAILY 11/11/22 11/11/22 metoprolol succinate 50 mg 50 mg PO DAILY 11/11/22 11/11/22 tablet,extended release 24 hr Allergies Allergy/AdvReac Type Severity Reaction Status Date / Time No Known Allergies Allergy Verified 11/11/22 17:17 Review of Systems Review of Systems: All systems reviewed & are unremarkable except as noted in HPI and below PMFSH Past Medical History Medical History Arthritis Cerebrovascular accident Chronic headaches Coronary artery disease Depression Hemorrhoids Hyperlipidemia Hypertension Memory loss Osteoarthritis Shingles Tuberculosis Wears glasses Surgical History Surgical History History of coronary angioplasty History of coronary artery stent placement History of hernia repair History of hysterectomy Family History Family History Father Family history of cardiovascular disease Sibling Family history of cardiovascular disease Hypoglycemia Lung disease Mother Family history of lung disease Other Arthritis Cancer Social History Social History Social History: Surrogate medical decision maker: Sharee Chawla, daughter. Code status: Full code. Smoking status: Former smoker Smoking end date: 02/10/93 Alcohol intake: never Drinks per week: 1 Substance use: never Substance use type: does not use Lack of Transportation: No Lack of Food: Sometimes True Current Housing: I Have Housing Concerned About Future Housing: No Difficulty Paying Gas/Electric Bills: No Difficulty Paying for Meds: No Currently Unemployed: No Education: Trade/Vocational Certificate Difficulty w/ Childcare or Family Care: No Occupation/Education: retired Spiritual care concerns: No Exam Const: General: no acute distress, alert and ill appearing chronically Nutritional Appearance: well nourished and obese Orientation/consciousness: patient oriented x3 Limitations: no limitations HENMT: Head: scalp tenderness ( mild posterior occiput) Face/Nose/Sinus: Facial tenderness on exam of face and sinuses ( right periorbital with ecchymosis) Mouth: Yes Normal oral and palatal mucosa present Eyes: Conjunctivae: conjunctivae normal Pupils: Equal, round and reactive pupils present EOM: EOMs intact bilaterally Neck: Neck: normal visual inspection Resp: Effort & Inspection: normal respiratory effort Auscultation: clear to auscultation bilaterally Cardio: Rate: regular rate Rhythm: regular
[2022-11-11 17:26] LABS: Basophils Absolute Auto 0.04 K/mm3 (0.00-0.10); Basophils Percent Auto 0.5 % (0.0-1.0); Eosinophils Absolute Auto 0.08 K/mm3 (0.02-0.50); Hematocrit 41.9 % (35.0-42.0); Immature Granulocyte Absolute 0.01 K/mm3 (0.00-0.00); Immature Granulocyte Percent A 0.1 % (0.0-0.0); Lymphocytes Absolute Auto 1.83 K/mm3 (1.10-4.50); Lymphocytes Percent Auto 23.8 % (18.0-42.0); Mean Corpuscular HGB Conc 33.4 g/dL (32.0-36.0); Mean Corpuscular Hemoglobin 28.6 pg (27.0-31.0); Mean Corpuscular Volume 85.5 fL (78.0-102.0); Monocytes Absolute Auto 0.66 K/mm3 (0.10-0.90); Monocytes Percent Auto 8.6 % (2.0-11.0); Neutrophils Absolute Auto 5.1 K/mm3 (1.7-7.2); Platelet Count Result 266 K/mm3 (150-420); Red Cell Distribution Width 14.4 % (11.6-14.4); White Blood Count 7.7 K/mm3 (4.8-10.8)
[2022-11-11 17:37] LABS: CRP 0.5 mg/dL (0.0-0.9)
[2022-11-11 17:41] LABS: Alanine Aminotransferase 15 U/L (14-59); Albumin Level 3.5 g/dL (3.4-5.0); Alkaline Phosphatase 114 U/L (46-116); Anion Gap 11 mmol/L (8-16); Aspartate Amino Transferase 16 U/L (15-37); Bilirubin,Total 0.9 mg/dL (0.00-1.00); Blood Urea Nitrogen 13 mg/dL (7-18); Calcium 10.3 mg/dL (8.5-10.1); Carbon Dioxide 28 mmol/L (21-32); Chloride 98 mmol/L (98-108); Estimated Glomerular Filt Rate 45; Glucose 122 mg/dL (70-99); Magnesium 1.8 mg/dL (1.8-2.4); Osmolality Calculated 285 mOsm/kg (285-295); Potassium 3.5 mmol/L (3.5-5.1); Sodium 137 mmol/L (136-145); Total Protein 7.5 g/dL (6.4-8.2)
--- NOTE | 2022-11-11 17:46 | PC.NURSE ---
PT IS LYING ON STRETCHER TALKING WITH FAMILY WITHOUT DISTRESS NOTED. PT IS AWAITING RESULTS AT THIS TIME. WILL CONTINUE TO MONITOR.
[2022-11-11 18:01] LABS: Influenza A QL RT-PCR Negative (Negative); Influenza B QL RT-PCR Negative (Negative); SARS-CoV-2 RNA PCR Negative (Negative)
[2022-11-11 18:20] VITALS: BP 153/87; PULSE 80; RESP 18; O2SAT 98
== END 2022-11-11 18:20 | disposition home or self-care (01) ==
PROVIDERS: Emergency Provider Emergency Medicine; PCP Internal Medicine
DX: S00.83XA Contusion of other part of head, initial encounter (principal); W19.XXXA Unspecified fall, initial encounter; I25.10 Atherosclerotic heart disease of native coronary artery without angina pectoris; I10 Essential (primary) hypertension; E78.5 Hyperlipidemia, unspecified; F32.A Depression, unspecified; Z86.73 Personal history of transient ischemic attack (TIA), and cerebral infarction without residual deficits; Z95.5 Presence of coronary angioplasty implant and graft; Z87.891 Personal history of nicotine dependence; Z79.82 Long term (current) use of aspirin; Z20.822 Contact with and (suspected) exposure to COVID-19
CPT/HCPCS: 36415; 70450; 70486; 80053; 83735; 85025; 86140; 87636; 99284

== ENCOUNTER 2022-11-25 04:57 | Inpatient (IN) | payer MEDICARE, MEDICAID, SELFPAY ==
[2022-11-25] VITALS (29 sets, daily range): BP systolic 88–170; BP diastolic 34–82; PULSE 57–76; RESP 12–19; TEMP 35.9–36.6; O2SAT 94–100; BMI 31.1
--- NOTE | ~2022-11-25 | CT_ITS ---
EXAMINATION: CT brain wo con DATE: 11/25/2022 18:24 INDICATION: Syncope. TECHNIQUE: Computed tomography (CT) of the head was performed without intravenous contrast. The mA wa s adjusted according to patient size. Iterative reconstruction technique was employed. The dose-lengt h product was 605.33 mGy-cm. COMPARISON: Head CT 11/11/2022 FINDINGS: There is an old infarct in the right basal ganglia. There is an old infarct in left occipit al lobe. There are scattered areas of low attenuation in the cerebral white matter, which is within n ormal limits for the patient's age. There is no intracranial hemorrhage, acute infarction, or abnorma l intracranial mass lesion. The ventricles are normal in size. The orbits are normal. There is mild m ucosal thickening in the paranasal sinuses. There are is a trace left mastoid effusion. IMPRESSION: 1. Old infarcts involving the right basal ganglia and left occipital lobe. Reviewed, dictated and finalized at location E.
--- NOTE | ~2022-11-25 | US_ITS ---
EXAMINATION: US arterial ankle brachial ind DATE: 11/29/2022 11:22 INDICATION: Severe vascular disease with claudication TECHNIQUE: Segmental pressures and plethysmographic and Doppler waveforms of the brachial and lower e xtremity arteries were obtained. COMPARISON: None. FINDINGS: Right and left brachial artery pressures of 141 mm Hg and 187 mm Hg, respectively, are discordant (no rmal difference <= 30 mmHg). The right ankle-brachial index (FLAQUITO) is unable to be obtained due to inability to occlude the vessels at either ankle (normal >= 0.9-1.0). The right great toe-brachial index (TBI) is 0.36 (normal >= 0.6 5). Arterial Doppler waveforms are biphasic with brisk systolic upstrokes at both right posterior tib ial and dorsalis pedis arteries. The left FLAQUITO is also unable to be obtained due to inability to occlude the vessels at the left ankle. The left TBI is 0.29. Arterial Doppler waveforms are biphasic with brisk systolic upstrokes at both left posterior tibial and dorsalis pedis arteries. IMPRESSION: 1. Arterial occlusive disease to bilateral lower limbs with moderately decreased bilateral toe brachi al indices. Ankle brachial indices unable to be obtained due to inability to occlude vessels at eithe r ankle. 2. 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 Reviewed, dictated and finalized at location A. IMPRESSION: 1. Arterial occlusive disease to bilateral lower limbs with moderately decrease d bilateral toe brachial indices. Ankle brachial indices unable to be obtained due to inability to occlude vessels at either ankle. 2. Discordant brachial artery pressures likely related to 80% stenosis at the o rigin of the innominate artery seen on CT from one day prior.
--- NOTE | ~2022-11-25 | CT_ITS ---
EXAMINATION: CT cervical spine wo con DATE: 11/25/2022 18:24 INDICATION: Syncope. Fall. TECHNIQUE: Computed tomography (CT) of the cervical spine was performed without intravenous contrast. Automated exposure control and iterative reconstruction technique were employed. The dose-length pro duct was 488.05 mGy-cm. COMPARISON: CT cervical spine 05/03/2022 FINDINGS: There is mild emphysema. There is 5 degrees dextrocurvature of cervicothoracic spine. There is 2 mm anterolisthesis of C3 on C4 and C7 on T1. Vertebral body heights are normal. There is mildly decreased disc height at C3-C4 and C4-C5, severely decreased disc height at C5-C6, and mildly decrea sed disc height at C6-C7. The following disc levels are specifically discussed: C2-C3: There is mild right and moderate left uncovertebral joint osteoarthritis. There is severe bila teral facet joint osteoarthritis. There is mild bilateral neural foraminal stenosis. There is no cent ral canal stenosis. C3-C4: There is severe right and mild left uncovertebral joint osteoarthritis. There is severe bilate ral facet joint osteoarthritis. There is mild right and moderate left neural foraminal stenosis. Ther e is mild central canal stenosis. C4-C5: There is moderate and severe left uncovertebral joint osteoarthritis. There is severe right an d mild left facet joint osteoarthritis. There is moderate right and mild left neural foraminal stenos is. There is mild central canal stenosis. C5-C6: There is severe bilateral uncovertebral joint osteoarthritis. There is moderate right and mild left facet joint osteoarthritis. There is mild right and moderate left neural foraminal stenosis. Th ere is mild central canal stenosis. C6-C7: There is mild bilateral uncovertebral joint osteoarthritis. There is mild right and severe lef t facet joint osteoarthritis. There is mild left neural foraminal stenosis. There is mild central can al stenosis. C7-T1: There is no uncovertebral joint osteoarthritis. There is severe bilateral facet joint osteoart hritis. There is mild bilateral neural foraminal stenosis. There is no central canal stenosis. IMPRESSION: 1. No fracture. 2. Severe cervical spondylosis. Reviewed, dictated and finalized at location E.
--- NOTE | ~2022-11-25 | XR_ITS ---
Portable chest x-ray Comparison: 09/28/2022 Clinical History: Chest pain Findings: There is linear scar or atelectasis at the left lung base. Lungs are otherwise clear. Car diomediastinal silhouette is stable. Bones and soft tissues are unremarkable. Impression: Linear scar or atelectasis left lung base, otherwise clear lungs. Reviewed, dictated and finalized at location . Impression: Linear scar or atelectasis left lung base, otherwise clear lungs.
--- NOTE | ~2022-11-25 | CT_ITS ---
EXAMINATION: CTA chest abdomen pelvis DATE: 11/28/2022 14:31 INDICATION: Chest pain and blood pressure differential. Assess for aortic dissection. TECHNIQUE: Computed tomographic angiography (CTA) of the chest, abdomen, and pelvis was performed wit hout and with 100 mL Omnipaque-350 intravenous contrast. Volume-rendered 3D-reconstructions of the ao rta and large arteries were constructed by the technologist on a separate workstation. Automated expo sure control and iterative reconstruction technique were employed. The dose-length product was 1247.0 7 mGy-cm. COMPARISON: CT abdomen and pelvis dated 11/25/2022 FINDINGS: Chest: Mild emphysema with mild scattered atelectasis. No pneumonia, pulmonary edema, pleural effusion or pn eumothorax. Heart size is normal. Atherosclerotic coronary artery calcifications and aortic valve nikolay cification. No pericardial effusion. Thoracic aorta is normal in caliber. There is extensive atherosc lerotic plaque without hemodynamically significant stenosis along the thoracic aorta. There is also a ortic valve calcific lesion. More prominent atherosclerotic plaque with 60% stenosis at the origin of the left common carotid artery and with 80% stenosis at the origin of the innominate artery. Calcifi ed right hilar lymph nodes consistent with old granulomatous disease. No pathologically enlarged thor acic lymphadenopathy. Moderate thoracic spondylosis with bridging osteophytes at multiple levels cons istent with diffuse idiopathic skeletal hyperostosis (DISH). Abdomen and pelvis: Liver, gallbladder, spleen, pancreas and bilateral adrenal glands are normal. There is calcified athe rosclerosis of the normal caliber abdominal aorta and many of the other arteries. There is a severe stenosis of the proximal left renal artery with moderate atrophy, cortical thickeni ng and decreased cortical enhancement at the cephalad two thirds of the left kidney. This relatively spares the caudal third of the left kidney which is supplied by a separate accessory left renal arter y. There are a few subcentimeter bilateral hypodense renal cysts. Additional hemodynamically signific ant stenosis at the celiac, superior mesenteric and right renal arteries. Contrast opacifies a tiny i nferior mesenteric artery which arises near the takeoff of an aortobiiliac bypass graft. There is mod erate colonic diverticulosis with a sigmoid predominance. There is no adjacent inflammatory change t o suggest diverticulitis. No bowel obstruction. Bladder is normal. The uterus is not identified and h as likely been surgically resected. Postoperative change of prior ventral hernia mesh repair. No free intraperitoneal gas or fluid. No pathologically enlarged abdominal or pelvic lymphadenopathy. Severe lumbar spondylosis. Moderate right and moderate to severe left hip osteoarthritis. IMPRESSION: 1. No aortic aneurysm or dissection. 2. Extensive atherosclerotic disease with likely hemodynamically significant stenosis at the origin o f the innominate artery, bilateral renal arteries, celiac axis and superior mesenteric artery. 3. Moderate atrophy and decreased cortical enhancement at the upper two thirds of the left kidney lik uriel related to ischemia in the region supplied by the more cephalad dominant left renal artery which spares the inferior third of the left kidney supplied by a smaller accessory renal artery. 4. Diverticulosis. Reviewed, dictated and finalized at location A. IMPRESSION: 1. No aortic aneurysm or dissection. 2. Extensive atherosclerotic disease with likely hemodynamically significant st enosis at the origin of the innominate artery, bilateral renal arteries, celiac axis and superior mesenteric artery. 3. Moderate atrophy and decreased cortical enhancement at the upper two thirds of the left kidney like
--- NOTE | ~2022-11-25 | XR_ITS ---
EXAMINATION: XR hip BI 2V w AP pelvis DATE: 11/25/2022 18:17 INDICATION: Hip pain. Falls. TECHNIQUE: An anteroposterior view of the pelvis and 2 views of each hip were obtained. COMPARISON: Pelvis and hip radiographs 03/26/2021 FINDINGS: Bone alignment is normal. No fracture. There is severe lumbar spondylosis. There is moderat e right hip osteoarthritis and severe left hip osteoarthritis. IMPRESSION: 1. Moderate right hip osteoarthritis and severe left hip osteoarthritis. Reviewed, dictated and finalized at location E.
--- NOTE | ~2022-11-25 | CT_ITS ---
CT of the Abdomen and Pelvis: Indication: Abdominal pain Technique: 2.5 mm axial scans were obtained through the abdomen and pelvis following intravenous adm inistration of 100 cc of Omnipaque 350. Dose reduction technique was used on this scan by utilizing a utomated exposure control and iterative reconstruction technique. The dose-length product (DLP) was 9 54.38 mGy-cm. COMPARISON: 09/29/2022 Findings: Scans through the lung bases are unremarkable. The liver, spleen, pancreas, gallbladder, adrenals and right kidney are within normal limits. Left ki dney is relatively atrophic. There are atherosclerotic calcifications of the aorta. Aortoiliac bypas s present. No lymphadenopathy. No bowel obstruction or bowel wall thickening. There is no evidence to suggest acute appendicitis. Images through the pelvis were performed. Urinary bladder unremarkable. No pelvic mass seen. No ascit es. Impression: No acute abnormality. Chronic findings, as above. Reviewed, dictated and finalized at location . Impression: No acute abnormality. Chronic findings, as above.
--- NOTE | 2022-11-25 04:59 | ECG_ITS ---
Measurements Intervals [place] Rate: 71 P: 73 MN: 178 QRS: 22 QRSD: 93 T: 127 QT: 406 QTc: 444 Interpretive Statements SINUS RHYTHM BASELINE ARTIFACT PROBABLE INFERIOR MYOCARDIAL INFARCTION , PROBABLY OLD [35 ms Q WAVE IN II/aVF] MODERATE T-WAVE ABNORMALITY, CONSIDER LATERAL ISCHEMIA [-0.1+ mV T WAVE IN I/aVL/V5/V6] ABNORMAL ECG COMPARED TO ECG 09/27/2022 14:15:48 SINUS RHYTHM NOW PRESENT Electronically Signed On 11-25-2022 16:54:12 CDT by Uriel Merino M.D.
--- NOTE | 2022-11-25 05:07 | ED.CHESTPAIN ---
HPI - Chest Pain General Chief Complaint: Chest Pain Stated Complaint: cp Time Seen by Provider: 11/25/22 05:00 History of Present Illness HPI narrative: Patient brought to the emergency department by EMS from home. She has mid sternal and epigastric pain that started a couple hours prior to arrival. Despite home nitro intake her pain has not improved. EMS gave her third nitro without changes of her pain. She has similar pain years ago and had a cardiac cath. No cardiac stents have been placed. Denies all other review of systems including nausea vomiting fevers and chills. She is accompanied by her friend who contributes to the history Related Data Home Medications Medication Instructions Recorded Confirmed aspirin 325 mg tablet,delayed 325 mg PO DAILY 01/27/19 11/11/22 release fluticasone propionate 50 1 spray intranasal DAILY PRN 01/27/19 11/11/22 mcg/actuation nasal Allergy Symptoms spray,suspension nitroglycerin 0.2 mg/hr 1 patch transdermal DAILY 01/27/19 11/11/22 transdermal 24 hour patch acetaminophen 500 mg tablet 500 mg PO Q6H PRN Breakthrough Pain 01/12/20 11/11/22 sennosides 8.6 mg tablet (Senokot) 8.6 mg PO DAILY 09/06/20 11/11/22 atorvastatin 40 mg tablet 40 mg PO QHS 10/10/22 11/11/22 chlorthalidone 25 mg tablet 25 mg PO DAILY 11/11/22 11/11/22 memantine 10 mg tablet 10 mg PO DAILY 11/11/22 11/11/22 metoprolol succinate 50 mg 50 mg PO DAILY 11/11/22 11/11/22 tablet,extended release 24 hr Allergies Allergy/AdvReac Type Severity Reaction Status Date / Time No Known Allergies Allergy Verified 11/11/22 17:17 Review of Systems Review of Systems: Negative except what is documented in the HPI [facility] Past Medical History Medical History Arthritis Cerebrovascular accident Chronic headaches Coronary artery disease Depression Hemorrhoids Hyperlipidemia Hypertension Memory loss Osteoarthritis Shingles Tuberculosis Wears glasses Surgical History Surgical History History of coronary angioplasty History of coronary artery stent placement History of hernia repair History of hysterectomy Family History Family History Father Family history of cardiovascular disease Sibling Family history of cardiovascular disease Hypoglycemia Lung disease Mother Family history of lung disease Other Arthritis Cancer Social History Social History Social History: Surrogate medical decision maker: Sharee Chawla, daughter. Code status: Full code. Smoking status: Former smoker Smoking end date: 02/10/93 Alcohol intake: never Drinks per week: 1 Substance use: never Substance use type: does not use Lack of Transportation: No Lack of Food: Sometimes True Current Housing: I Have Housing Concerned About Future Housing: No Difficulty Paying Gas/Electric Bills: No Difficulty Paying for Meds: No Currently Unemployed: No Education: Trade/Vocational Certificate Difficulty w/ Childcare or Family Care: No Occupation/Education: retired Spiritual care concerns: No Exam Narrative: GENERAL: Well-appearing, well-nourished, and in no acute distress. HEAD: Normocephalic, atraumatic. EYES: PERRLA and EOMI. ENT: Nares clear, no rhinorrhea or epistaxis. Mucous membranes moist. NECK: Supple. CHEST: Clear to auscultation. No respiratory distress. HEART: Regular rate and rhythm. ABDOMEN: Soft,nondistended. Epigastric and right upper quadrant tenderness EXTREMITIES: Normal range of motion. No edema. SKIN: Warm, dry, no rash. NEURO: No focal deficits. Alert and oriented x3. PSYCH: Normal mood and affect. Course Course Emergency Course: Differential diagnosis includes but not limited to acute cholecystitis, pancreatitis, CAD, colitis, pneumoni
[2022-11-25] MEDS: SODIUM CHLORIDE 0.9% IV 1,000 ML 999 ML IV CONT (05:21)
--- NOTE | 2022-11-25 05:22 | PC.NURSE ---
Patient's blood pressure was 85/41. Notified Dr. Gregory who verbally ordered to not give the morphine.
[2022-11-25 05:30] LABS: Basophils Percent Auto 0.4 % (0.2-1.2); Eosinophils Absolute Auto 0.1 K/mm3 (0-0.3); Eosinophils Percent Auto 0.7 % (0-4.4); Hematocrit 39.9 % (37.0-47.0); Hemoglobin 13.1 g/dL (12.0-15.0); Immature Granulocyte Absolute 0.02 K/mm3 (0.00-0.031); Immature Granulocyte Percent A 0.2 % (0-0.5); Lymphocytes Absolute Auto 1.45 K/mm3 (0.9-3.2); Lymphocytes Percent Auto 17.1 % (18.3-44.2); Mean Corpuscular HGB Conc 32.8 g/dl (32-36); Mean Corpuscular Hemoglobin 28.9 pg (26-34); Mean Corpuscular Volume 88.1 fl (80-100); Mean Platelet Volume 10.4 fl (7.4-10.4); Monocytes Absolute Auto 0.5 K/mm3 (0.1-0.6); Neutrophils Absolute Auto 6.4 K/mm3 (1.3-6.7); Neutrophils Percent Auto 75.6 % (45.5-73.1); Platelet Count Result 207 k/mm3 (150-375); Red Blood Count 4.53 M/mm3 (4.2-5.4); Red Cell Distribution Width 14.3 % (11.5-14.5); White Blood Count 8.5 K/mm3 (4.5-10.0)
[2022-11-25 05:35] LABS: Alanine Aminotransferase 18 U/L (6-35); Albumin Level 3.9 g/dL (3.5-5.1); Alkaline Phosphatase 84 U/L (38-126); Anion Gap 7 mmol/L (8-16); Aspartate Amino Transferase 24 U/L (14-36); Bilirubin,Total 0.9 mg/dL (0.2-1.3); Blood Urea Nitrogen 20 mg/dL (7-17); Calcium 9.5 mg/dL (8.4-10.2); Carbon Dioxide 32 mmol/L (22-30); Chloride 98 mmol/L (98-107); Estimated CRCL calculation 35 ml/min; Estimated Glomerular Filt Rate 43; Glucose 117 mg/dL (65-110); Lipase 217 U/L (23-300); Potassium 3.1 mmol/L (3.4-5.0); Sodium 137 mmol/L (137-145)
[2022-11-25 05:37] LABS: Prothrombin Time 13.9 Seconds (11.1-14.7)
[2022-11-25 05:38] LABS: Partial Thromboplastin Time 28.1 SECONDS (22.3-36.8)
[2022-11-25 05:47] LABS: Troponin I 0.015 ng/mL (0.000-0.034)
--- NOTE | 2022-11-25 08:57 | PC.NURSE ---
Reassessed pt pain. Pt stated she is feeling a little pain in ABD but does not want any medication because it hits her hard .
--- NOTE | 2022-11-25 09:08 | ADMGEN ---
This patient, Kylie Nunn, was admitted to IMU Room 207-01. Patient/family oriented to hospital policies and general routines including ID bracelet, bed and alarms, visiting hours, pain management, procedures, bathroom and other care routines, personal items, smoking policy, room service/diet, and visiting hours. Information on how to activate the Rapid Response Team has been discussed. Patient/Family are encouraged to report perceived risks to care and to ask questions if they do not understand what they are told or what they should do.
--- NOTE | 2022-11-25 09:50 | PM.CNCAR ---
Assessment and Plan Assessment and plan (1) Chest pain: Qualifiers: Chest pain type: unspecified Qualified Code(s): R07.9 - Chest pain, unspecified Code(s): R07.9 - Chest pain, unspecified Status: Acute (2) Aortic stenosis: Qualifiers: Cardiac valve disease etiology: etiology unspecified Qualified Code(s): I35.0 - Nonrheumatic aortic (valve) stenosis Code(s): I35.0 - Nonrheumatic aortic (valve) stenosis Status: Acute Plan This is an 82-year-old lady with a history of ischemic heart disease as described above she has a known chronic total occlusion of the right coronary artery and no significant left coronary disease other than a stenosis in a small diagonal branch of the LAD. Once again she is admitted with some chest pain which does not appear to be ischemic in nature despite ongoing symptoms has no evidence of acute myocardial injury by troponin. She does have some aortic stenosis and it is an open question as to the exact severity of this. Her previous echocardiograms do not suggest that it is severe however should her symptoms and physical exam do raise some concern I suppose. We discussed transesophageal ECHO during the last hospitalization as a help step to further clarify this. It is of concern to me that she has had several falls and at least 1 episode of possible loss of consciousness since then. She is no longer bradycardic at all as beta-blockers have been stopped the last time she was in the hospital. I will arrange for transesophageal echocardiogram to be done while she is here. The recent echocardiogram did have some conflicting data in terms of a rather high velocity of close to 4 m/sec using the Pedoff probe which if accurate is consistent with severe if not critical aortic stenosis Rodney Guallpa MD [facility] History of Present Illness History of Present Illness Consult date/time: 11/25/22 09:50 Reason For Visit: Chest Pain Narrative: This is an 82-year-old woman who is known to me and my part partners with history of coronary disease and aortic valve disease. For seeing her at the request of the hospitalist because of chest pain. She states she began to suddenly have pain that she describes in the low substernal to mid epigastric region at about midnight or 1:00 a.m. in the morning last night the did weight awakened her from sleep. Through the course of the night she took several nitroglycerin tablets without any change or alleviation of this symptom. She came to the emergency room after she called for help and was brought in here by ambulance. Are in the emergency room her electrocardiogram shows sinus rhythms with some nonspecific ST and T abnormalities with no significant changes in comparison to previous tracings. Her troponin levels have been negative x2 sets. She is admitted to IMU for further evaluation and management. She reports that she still has some very mild central chest heaviness. She is otherwise visiting with her daughter and does not have any other significant complaints or report to be in any other sort of distress. She is known to have coronary artery disease and what has been felt to be mild aortic valve stenosis. She was seen by me consultation in the past with some atypical chest pain and underwent catheterization previously here at this hospital demonstrating total occlusion of the right coronary artery with [id number] collateral filling and no significant left coronary disease save for a high-grade lesion in a very small diagonal branch of her LAD. She had a subsequent hospitalization up in [facility] with a similar presentation and again an angiogram up there showed no new abnormalities. By physical exam in the office she was noted to have mi a murmur of some aortic stenosis which was felt to be mild by exam and by echo. She has been followed regularly in the office. She was hospitalized here recently in September in referral from her
[2022-11-25 11:52] LABS: Troponin I 0.023 ng/mL (0.000-0.034)
--- NOTE | 2022-11-25 13:16 | PM.IMHP ---
H&P: HPI History of Present Illness Date/Time: 11/25/22 13:16 Chief Complaint: Chest pain Narrative: 82yo female with hx CVA, CAD, Ao stenosis and HTN here for chest pain. 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 Repeat angiography in 2017 at [facility] with identical findings.?More recently, patient was hospitalized here in mid-September for weakness and found to have bradycardia. Metoprolol stopped. Echo showing EF 60-65% with Grade I diastolic dysfunction. Mild-moderate noted but possibly supravalvular stenosis. Patient states that she has been having falls over the past 3-4 months. She was falling 3-4 times per week on average. She does have chronic vision problems. She does complain of lightheadedness with walking and occasional have ?aura? has a sense that she is about to fall. She has had syncopal episodes. She also has had in head injuries and pain in her knees and hips. She is also having nausea and vomiting over the past several weeks. States that she has lost 35-40 lb although that is not confirmed. She has nausea with eating solid foods. Liquids are okay. She vomits undigested food. Symptoms are better after vomiting. She has lower chest pain with eating solid foods. She had a colonoscopy 6-7 years ago which was negative. No EGD that she is aware of. No history of esophageal strictures. She quit tobacco in 1993 after smoking a pack a day for 25-30 years. She rarely drinks alcohol. No melena,, hematochezia or hematemesis. She has noticed her blood pressure has become low at home to 88/64. She has been to the emergency room multiple times as well as to see a GI surgeon however and her primary care doctor for these symptoms. No fevers, chills, dysuria or hematuria. She is also having dysphagia with choking when trying to eat. Cough productive of clear sputum. Patient also has been having chest pain that she has chronically 2-3 times per year. Over the past month she has been having it more frequently at 1-2 times per week. She describes as a heaviness in mid chest radiating to the back and down her left arm. This chest pain feels much different than the pain she experiences after eating. Chest pain occurs at rest and with exertion. Associated nausea and shortness of breath. She feels lightheaded. No palpitations. She does state the pain is palpable but not pleuritic. Normally, the pain is better with lying down and nitroglycerin. She had recurrent chest pain this morning at around 1:00 a.m.. She tried to lie down and take a nitro as she normally does but this was unhelpful. She ended up taking 2 more nitroglycerin over the course of the early childhood services coordinator hours before coming to the emergency room for evaluation by EMS. In the emergency room, blood pressure dropped to 88/53. She was otherwise hemodynamically stable. COVID and influenza swabs were negative. EKG showed normal sinus rhythm probably old inferior IN with moderate T-wave changes in the lateral leads. No significant change from prior. Chest x-ray showed linear scarring or atelectasis in the left lung base otherwise clear. CT the abdomen pelvis were normal. There is incidental findings of a left kidney appears atrophic as well as the aortoiliac bypass present. Potassium was low 3.1. BUN 20 and creatinine 1.2. Troponin negative x3. LFTs normal. Lipase normal. She was given IV fluids and admitted for further care. She was given aspirin by EMS prior to admission. Review of Systems Review of Systems: All systems reviewed & are unremarkable except as noted in HPI and below [facility] Past Medical History Medical History Arthritis Cerebrovascular accident Chronic headaches Coronary artery disease Depressi
--- NOTE | 2022-11-25 15:39 | WPDMODSED ---
Moderate Sedation Note-Pt Data Patient Data Diagnosis: Aortic valve stenosis of uncertain severity Discrepant information on recent transthoracic echocardiogram Coronary artery disease with chronic CT over the right coronary artery Atypical, probably noncardiac chest pain Present Complaint: Episodes of falling, will episodes of syncope Procedure to be performed/Plan: Transesophageal echocardiogram Allergies Allergy/AdvReac Type Severity Reaction Status Date / Time No Known Allergies Allergy Verified 11/11/22 17:17 Home Medications Medication Instructions Recorded Confirmed Type aspirin 325 mg tablet,delayed 325 mg PO DAILY 01/27/19 11/25/22 History release fluticasone propionate 50 1 spray intranasal DAILY PRN 01/27/19 11/25/22 History mcg/actuation nasal Allergy Symptoms spray,suspension nitroglycerin 0.2 mg/hr 1 patch transdermal DAILY 01/27/19 11/25/22 History transdermal 24 hour patch acetaminophen 500 mg tablet 500 mg PO Q6H PRN Breakthrough Pain 01/12/20 11/25/22 History potassium chloride 10 mEq 10 meq PO DAILY #90 tabs 10/31/20 11/25/22 Rx tablet,extended release (Klor-Con) cholecalciferol (vitamin D3) 1,250 1,250 mcg PO WEEKLY #8 caps 03/21/21 11/25/22 Rx mcg (50,000 unit) capsule sertraline 50 mg tablet 50 mg PO DAILY #90 tabs 01/30/22 11/25/22 Rx docusate sodium 50 mg capsule 50 mg PO BID PRN constipation #1 10/01/22 11/25/22 Rx (Stool Softener) cap atorvastatin 40 mg tablet 80 mg PO QHS 10/10/22 11/25/22 History lisinopril 20 mg tablet 20 mg PO DAILY #90 tabs 11/05/22 11/25/22 Rx chlorthalidone 25 mg tablet 25 mg PO DAILY 11/11/22 11/25/22 History amlodipine 10 mg tablet 10 mg PO DAILY 11/25/22 11/25/22 History gabapentin 300 mg capsule 300 mg PO BID PRN pain 11/25/22 11/25/22 History omeprazole 20 mg capsule,delayed 20 mg PO BID 11/25/22 11/25/22 History release Current Medications: Active Medications Acetaminophen (Acetaminophen 500 Mg Tablet) 500 mg PO Q6H PRN PRN Reason: Breakthrough Pain Aspirin (Aspirin 325 Mg Enteric Tablet) 325 mg PO DAILY NATALIE Atorvastatin Calcium (Atorvastatin 40 Mg Tablet) 80 mg PO QHS [facility] Docusate Sodium (Docusate Sodium Liq 100 Mg/10 Ml Udc) 50 mg PO BID PRN PRN Reason: constipation Ergocalciferol (Ergocalciferol 50,000 Units Capsule) 50,000 units PO WEEKLY [facility] Fluticasone Propionate (Fluticasone Propionate 0.05% Na Spr 16 Gm Btl (*Bkc)) 1 spray NASAL DAILY PRN PRN Reason: Allergy Symptoms Gabapentin (Gabapentin 300 Mg Capsule) 300 mg PO BID PRN PRN Reason: pain Pantoprazole Sodium (Pantoprazole 40 Mg Tablet) 40 mg PO Q12HR [facility] Sertraline HCl (Sertraline Hcl 50 Mg Tablet) 50 mg PO DAILY [facility] Sedation/Anesthesia: No previous sedation/anesthesia problems (including family history). [facility] Past Medical History Medical History Arthritis Cerebrovascular accident Chronic headaches Coronary artery disease Depression Hemorrhoids Hyperlipidemia Hypertension Memory loss Osteoarthritis Shingles Tuberculosis Wears glasses Surgical History Surgical History History of coronary angioplasty History of coronary artery stent placement History of hernia repair History of hysterectomy Family History Family History Father Family history of cardiovascular disease Sibling Family history of cardiovascular disease Hypoglycemia Lung disease Mother Family history of lung disease Other Arthritis Cancer Social History Social History Social History: Surrogate medical decision maker: Sharee Chawla, daughter. Code status: Full code. Smoking packs per day: 0.5 Smoking cigarettes per day: 10.0 Years smoked: 40 Smoking pack-years: 20.00 Smoking status: Former smoker Smoking end date: 11/24/93 Alcohol
--- NOTE | 2022-11-25 16:07 | P.PCNCC_ITS ---
Cardiac Cath Procedure Note Date of procedure:: 11/25/22 Performing physician:: Rodney Guallpa MD Indication:: Aortic valve stenosis of uncertain severity Brief clinical history:: This is an 82-year-old woman with coronary artery disease, she has a chronic total occlusion of the right coronary artery and also has mild aortic valve stenosis which has been followed in the office. She has had several admissions here with some shortness of breath she is currently admitted with some chest pain. Recent transthoracic echocardiogram has discrepant information regarding the severity of her aortic valve stenosis. Javy was recommended to further clarify this. Procedure Procedure performed:: Transesophageal echocardiogram with direct aortic valve planimetry Sedation/Medication given:: Fentanyl 50 mg Versed 2 mg Case start time 3:58 p.m. Case end time 4:05 p.m. Estimated blood loss:: No blood loss Procedure note:: Patient was brought to the cardiac catheterization lab holding area in the postabsorptive state. She was the supine position or pharyngeal Cetacaine was used to provide topical anesthesia. A bite block was then placed and then she received sedation using 50 mg of fentanyl and 2 mg of Versed. Transesophageal echo probe was easily placed into the hypopharynx and it advanced into the esophagus. Imaging was performed of the left ventricle, mitral valve and multip lanar imaging of the aortic valve. Direct planimetry of the aortic valve was performed. The probe was then removed and the patient was recovered without difficulty procedure was well tolerated and uncomplicated. Findings:: There is concentric left ventricular hypertrophy with very good vigorous contractility. The left atrium is moderately dilated. The mitral valve leaflets are normal in appearance. The aortic valve is a trileaflet structure which has mild restriction of leaflet separation. There are some fibrotic thickening of the leaflets noted. There. Appears to be however reasonably good leaflet separation. The valve does not appear to be significantly stenotic by 2D imaging. Direct planimetry done in several projections he will is a direct measured aortic valve area of 1.3 cm2. There is no aortic regurgitation Conclusion:: 1. Very mild aortic valve stenosis with valve area 1.3 cm2. Patient does not have aortic valve stenosis which is clinically relevant at this time 2. Left ventricular hypertrophy with good systolic function Rodney Guallpa MD [facility]
--- NOTE | 2022-11-25 16:10 | ECHO_ITS ---
This document was recreated with the correct Report Title on 04/09/23.? The original document was signed by Rodney Guallpa MD 11/25/22 1610. Date of procedure:: 11/25/22 Performing physician:: Rodney Guallpa MD Indication:: Aortic valve stenosis of uncertain severity Brief clinical history:: This is an 82-year-old woman with coronary artery disease, she has a chronic total occlusion of the right coronary artery and also has mild aortic valve stenosis which has been followed in the office. She has had several admissions here with some shortness of breath she is currently admitted with some chest pain. Recent transthoracic echocardiogram has discrepant information regarding the severity of her aortic valve stenosis. Javy was recommended to further clarify this. Procedure Procedure performed:: Transesophageal echocardiogram with direct aortic valve planimetry Sedation/Medication given:: Fentanyl 50 mg Versed 2 mg Case start time 3:58 p.m. Case end time 4:05 p.m. Estimated blood loss:: No blood loss Procedure note:: Patient was brought to the cardiac catheterization lab holding area in the postabsorptive state. She was the supine position or pharyngeal Cetacaine was used to provide topical anesthesia. A bite block was then placed and then she received sedation using 50 mg of fentanyl and 2 mg of Versed. Transesophageal echo probe was easily placed into the hypopharynx and it advanced into the esophagus. Imaging was performed of the left ventricle, mitral valve and multiplanar imaging of the aortic valve. Direct planimetry of the aortic valve was performed. The probe was then removed and the patient was recovered without difficulty procedure was well tolerated and uncomplicated. Findings:: There is concentric left ventricular hypertrophy with very good vigorous contractility. The left atrium is moderately dilated. The mitral valve leaflets are normal in appearance. The aortic valve is a trileaflet structure which has mild restriction of leaflet separation. There are some fibrotic thickening of the leaflets noted. There. Appears to be however reasonably good leaflet separation. The valve does not appear to be significantly stenotic by 2D imaging. Direct planimetry done in several projections he will is a direct measured aortic valve area of 1.3 cm2. There is no aortic regurgitation Conclusion:: 1. Very mild aortic valve stenosis with valve area 1.3 cm2. Patient does not have aortic valve stenosis which is clinically relevant at this time 2. Left ventricular hypertrophy with good systolic function Rodney Guallpa MD [facility] This report may have been done utilizing a voice recognition system. Attempts have been made to correct errors. However, there may be uncorrected grammatical, spelling, and recognition errors present. Report Initialized date/time: Rodney Guallpa MD 11/25/221609 Electronically signed by: Rodney Guallpa MD 11/25/221609 [facility]
--- NOTE | 2022-11-25 16:29 | PCSTNOTE ---
Therapist attempted to see patient for Bedside Swallow Evaluation however patient was undergoing KARMEN procedure at that time. Will try again in the morning.
[2022-11-25] MEDS: ACETAMINOPHEN 500 MG TABLET PO (17:02)
[2022-11-25] MEDS: POTASSIUM CHLORIDE 20 MEQ ER TABLET 40 MEQ PO (17:03)
[2022-11-25] MEDS: PANTOPRAZOLE 40 MG TABLET PO (20:38)
[2022-11-25] MEDS: ATORVASTATIN 40 MG TABLET 80 MG PO (20:38)
[2022-11-26] VITALS (20 sets, daily range): BP systolic 130–189; BP diastolic 36–58; PULSE 58–79; RESP 16–20; TEMP 36.2–37.1; O2SAT 98–100
[2022-11-26 05:20] LABS: Basophils Percent Auto 0.5 % (0.2-1.2); Eosinophils Absolute Auto 0.1 K/mm3 (0-0.3); Eosinophils Percent Auto 1.7 % (0-4.4); Hematocrit 39.8 % (37.0-47.0); Immature Granulocyte Absolute 0.01 K/mm3 (0.00-0.031); Immature Granulocyte Percent A 0.2 % (0-0.5); Lymphocytes Absolute Auto 1.71 K/mm3 (0.9-3.2); Lymphocytes Percent Auto 29.3 % (18.3-44.2); Mean Corpuscular HGB Conc 32.7 g/dl (32-36); Mean Corpuscular Hemoglobin 28.7 pg (26-34); Mean Corpuscular Volume 87.9 fl (80-100); Mean Platelet Volume 10.7 fl (7.4-10.4); Monocytes Absolute Auto 0.5 K/mm3 (0.1-0.6); Monocytes Percent Auto 8.9 % (2.6-8.5); Neutrophils Absolute Auto 3.5 K/mm3 (1.3-6.7); Neutrophils Percent Auto 59.4 % (45.5-73.1); Platelet Count Result 183 k/mm3 (150-375); Red Blood Count 4.53 M/mm3 (4.2-5.4); Red Cell Distribution Width 14.4 % (11.5-14.5); White Blood Count 5.8 K/mm3 (4.5-10.0)
[2022-11-26 05:42] LABS: Albumin Level 3.7 g/dL (3.5-5.1); Anion Gap 5 mmol/L (8-16); Blood Urea Nitrogen 13 mg/dL (7-17); Calcium 9.6 mg/dL (8.4-10.2); Carbon Dioxide 30 mmol/L (22-30); Chloride 103 mmol/L (98-107); Estimated CRCL calculation 43 ml/min; Estimated Glomerular Filt Rate 60; Glucose 92 mg/dL (65-110); Magnesium 1.8 mg/dL (1.6-2.3); Phosphorus 3.4 mg/dL (2.5-4.5); Potassium 3.9 mmol/L (3.4-5.0); Sodium 138 mmol/L (137-145)
[2022-11-26 06:42] LABS: Folic Acid 10.9 ng/mL (2.76->20)
[2022-11-26 08:40] LABS: Glucose Point of Care 91 mg/dl (65-105)
[2022-11-26] MEDS: PANTOPRAZOLE 40 MG TABLET PO ×2 (10:00→20:22)
[2022-11-26] MEDS: lisinopriL 20 MG TABLET PO (10:00)
[2022-11-26] MEDS: SERTRALINE HCL 50 MG TABLET PO (10:00)
[2022-11-26] MEDS: ENOXAPARIN 40 MG/0.4 ML SYRINGE SUB-Q (10:00)
[2022-11-26] MEDS: ASPIRIN 325 MG ENTERIC TABLET PO (10:00)
[2022-11-26] MEDS: ERGOCALCIFEROL 50,000 UNITS CAPSULE 50000 UNITS PO (10:00)
--- NOTE | 2022-11-26 10:12 | PCSTNOTE ---
Please refer to the Bedside Swallow Evaluation in the EMR. Please note, silent aspiration cannot be ruled out at bedside.
[2022-11-26 12:31] LABS: Glucose Point of Care 92 mg/dl (65-105)
[2022-11-26] MEDS: ACETAMINOPHEN 500 MG TABLET PO (12:57)
--- NOTE | 2022-11-26 14:51 | WPDGICN ---
Assessment and Plan Assessment and plan (1) Dysphagia: Code(s): R13.10 - Dysphagia, unspecified Status: Acute Assessment and Plan: Patient with difficulty swallowing. Food seems to catch in mid substernal portion the chest. This appears be related esophageal narrowing. Plan for EGD to assess more thoroughly. Anticoagulation may need to be held in anticipation of this for possible stricturing of the esophagus. (2) Chest pain: Qualifiers: Chest pain type: unspecified Qualified Code(s): R07.9 - Chest pain, unspecified Code(s): R07.9 - Chest pain, unspecified Status: Acute Assessment and Plan: Chest pain noted on admission may been related to her atherosclerotic heart disease. She is known to have rather significant heart disease and has this frequently she attributes it to heart pain. (3) Coronary artery disease: Qualifiers: Coronary Disease-Associated Artery/Lesion type: unspecified vessel or lesion type [place] vs. transplanted heart: [place] heart Associated angina: without angina Qualified Code(s): I25.10 - Atherosclerotic heart disease of [place] coronary artery without angina pectoris Code(s): I25.10 - Atherosclerotic heart disease of [place] coronary artery without angina pectoris Status: Acute Assessment and Plan: Atherosclerotic heart disease. Currently followed by cardiology service. (4) Aortic stenosis: Qualifiers: Cardiac valve disease etiology: etiology unspecified Qualified Code(s): I35.0 - Nonrheumatic aortic (valve) stenosis Code(s): I35.0 - Nonrheumatic aortic (valve) stenosis Status: Acute Assessment and Plan: Patient known to have aortic stenosis. Followed by Cardiology reassessed by heart catheterization and KARMEN yesterday. GI Consult Note Consult date/time: 11/26/22 14:51 Reason for consult: Dysphagia HPI: Kylie Nunn is a 82 year old female admitted the hospital with chest pain that is now resolved. He has a long history of atherosclerotic heart disease aortic stenosis. Patient admitted the hospital with these complaints. She had multiple issues. She states chest pain is now improved. She did undergo cardiac catheterization and evaluation of her aortic stenosis currently felt to be moderate to mild. Patient reports that when she eats food will catch in the mid substernal portion of the chest. For this reason I have been consulted. Denies any overt chest pain related to swallowing or eating. In the past she may have had heartburn. This does not appear to be a primary issue at present. Review of Systems Review of Systems: Review of systems noncontributory. [facility] Past Medical History Medical History Arthritis Cerebrovascular accident Chronic headaches Coronary artery disease Depression Hemorrhoids Hyperlipidemia Hypertension Memory loss Osteoarthritis Shingles Tuberculosis Wears glasses Surgical History Surgical History History of coronary angioplasty History of coronary artery stent placement History of hernia repair History of hysterectomy Family History Family History Father Family history of cardiovascular disease Sibling Family history of cardiovascular disease Hypoglycemia Lung disease Mother Family history of lung disease Other Arthritis Cancer Social History Social History Social History: Surrogate medical decision maker: Sharee Chawla, daughter. Code status: Full code. Smoking packs per day: 0.5 Smoking cigarettes per day: 10.0 Years smoked: 40 Smoking pack-years: 20.00 Smoking status: Former smoker Smoking end date: 11/24/93 Alcohol intake: never Drinks per week: 1 Substance use: nev
--- NOTE | 2022-11-26 15:34 | PM.IMPN ---
Progress Note: A&P Assessment and Plan (1) Chest pain: Qualifiers: Chest pain type: unspecified Qualified Code(s): R07.9 - Chest pain, unspecified Code(s): R07.9 - Chest pain, unspecified Status: Acute Assessment and Plan: Patient with chronic intermittent chest pain that was more persistent on the morning of admission. Chest pain is very similar to her prior episodes of chronic chest pain. Troponins are negative x3. EKG showing no acute changes. Cardiology was consulted and appreciate their input. Cardiology felt CP does not appear to be ischemic in nature Continue medical management with aspirin, Lipitor. No beta-maryana given her bradycardia. (2) Hypotension: Code(s): I95.9 - Hypotension, unspecified Status: Acute Assessment and Plan: Patient with hypotension on admission. She is on amlodipine, chlorthalidone, lisinopril and nitroglycerin patch. She states she has lost 35-40 lb although her weight is relatively stable since last admission. Patient with renal insufficiency which could be related to over-diuresis and/or lack of oral intake. Recent TSH was normal. Random Cortisol normal. SBP 155 -> 132 supine to standing. IV fluids given in ED. Antihypertensive medications were held and BP better. Add back Lisinopril. Follow (3) Falls: Code(s): W19.XXXA - Unspecified fall, initial encounter Status: Acute Assessment and Plan: Patient with falls. CT brain showing no acute findings. Cervical spine CT showing no fracture. Hip/pelvic xray showing OA but negative for fracture. Most likely falls related to orthostatic hypotension. Could be related to intermittent bradycardia as well but nothing on tele. Monitor on telemetry. PT/OT (4) Odynophagia: Code(s): R13.10 - Dysphagia, unspecified Status: Acute Assessment and Plan: Patient provides a history of odynophagia with food sticking in her lower chest. With vomiting, her symptoms resolved and appears that she has vomitus of undigested food to suggest esophageal stricture. She may not be eating much resulting in her renal insufficiency and hypotension. Speech therapy felt patient could have a soft & bite sized diet GI consulted for EGD which will be done tomorrow (5) Aortic stenosis: Qualifiers: Cardiac valve disease etiology: etiology unspecified Qualified Code(s): I35.0 - Nonrheumatic aortic (valve) stenosis Code(s): I35.0 - Nonrheumatic aortic (valve) stenosis Status: Acute Assessment and Plan: As above. KARMEN 11/25 showing very mild As stenosis with valve area 1.3cm2. LVH with good systolic function. Patient does not have aortic valve stenosis which is clinically relevant at this time (6) Coronary artery disease: Qualifiers: Coronary Disease-Associated Artery/Lesion type: unspecified vessel or lesion type [place] vs. transplanted heart: [place] heart Associated angina: without angina Qualified Code(s): I25.10 - Atherosclerotic heart disease of [place] coronary artery without angina pectoris Code(s): I25.10 - Atherosclerotic heart disease of [place] coronary artery without angina pectoris Status: Acute Assessment and Plan: Patient with known chronic coronary disease. She also has chronic chest pain. Medical management. (7) Hypokalemia: Code(s): E87.6 - Hypokalemia Status: Acute Assessment and Plan: Potassium low probably related to her chlorthalidone. Resolved. (8) Bradycardia: Code(s): R00.1 - Bradycardia, unspecified Status: Acute Assessment and Plan: Patient with bradycardia last admission and her metoprolol was stopped. She has not been started on this since then. Continue to monitor for bradycardia on telemetry. (9) Hypertension: Qualifiers: Hypertension type: primary hypertension Qualified Code(s): I10 - Essential (primary) hypertens
[2022-11-26] MEDS: ATORVASTATIN 40 MG TABLET 80 MG PO (20:22)
--- NOTE | 2022-11-26 20:35 | PC.NURSE ---
This patient, Kylie Nunn, was transferred to [facility] on 11/26/22 at 1742. Personal belongings sent with patient. Report given to Zoë. Appropriate documentation sent with patient.
[2022-11-27] VITALS (11 sets, daily range): BP systolic 114–193; BP diastolic 40–73; PULSE 59–72; RESP 18–22; TEMP 36.2–36.9; O2SAT 97–99
[2022-11-27] MEDS: LACTATED RINGERS 1,000 ML 150 ML IV CONT (11:25)
--- NOTE | 2022-11-27 12:10 | WPDANESEPPF ---
Anes - Initial Pre Proc Eval Procedure: Operation Date: 11/25/22 15:00 Proposed Procedures p Trans Esophageal Echo - Rodney Guallpa MD Operation Date: 11/27/22 12:30 Proposed Procedures p Esophagogastroduodenoscopy - Jorge Pham MD Date/Time: 11/27/22 12:10 Surgeon: Damion Pandey MD Pre Op Diagnosis: Chest Pain Patient Data Age: 82 Gender: F Height: 1.57 m Weight: 78.6 kg Last Vital Signs Temp 97.1 F L 11/27/22 11:24 Pulse 65 11/27/22 11:24 Resp 18 11/27/22 11:24 BP 130/52 L 11/27/22 11:24 Pulse Ox 99 11/27/22 11:24 O2 Del Method Room Air 11/27/22 11:24 O2 Flow Rate 3 11/25/22 16:05 Allergies Allergy/AdvReac Type Severity Reaction Status Date / Time No Known Allergies Allergy Verified 11/27/22 11:23 Home Medications Medication Instructions Recorded Confirmed Type aspirin 325 mg tablet,delayed 325 mg PO DAILY 01/27/19 11/25/22 History release fluticasone propionate 50 1 spray intranasal DAILY PRN 01/27/19 11/25/22 History mcg/actuation nasal Allergy Symptoms spray,suspension nitroglycerin 0.2 mg/hr 1 patch transdermal DAILY 01/27/19 11/25/22 History transdermal 24 hour patch acetaminophen 500 mg tablet 500 mg PO Q6H PRN Breakthrough Pain 01/12/20 11/25/22 History potassium chloride 10 mEq 10 meq PO DAILY #90 tabs 10/31/20 11/25/22 Rx tablet,extended release (Klor-Con) cholecalciferol (vitamin D3) 1,250 1,250 mcg PO WEEKLY #8 caps 03/21/21 11/25/22 Rx mcg (50,000 unit) capsule sertraline 50 mg tablet 50 mg PO DAILY #90 tabs 01/30/22 11/25/22 Rx docusate sodium 50 mg capsule 50 mg PO BID PRN constipation #1 10/01/22 11/25/22 Rx (Stool Softener) cap atorvastatin 40 mg tablet 80 mg PO QHS 10/10/22 11/25/22 History lisinopril 20 mg tablet 20 mg PO DAILY #90 tabs 11/05/22 11/25/22 Rx chlorthalidone 25 mg tablet 25 mg PO DAILY 11/11/22 11/25/22 History amlodipine 10 mg tablet 10 mg PO DAILY 11/25/22 11/25/22 History gabapentin 300 mg capsule 300 mg PO BID PRN pain 11/25/22 11/25/22 History omeprazole 20 mg capsule,delayed 20 mg PO BID 11/25/22 11/25/22 History release Laboratory Tests 11/26/22 11:43 POC Capillary Glucose 92 mg/dl (65-105) Patient hx anesthesia problems: none Family hx anesthesia problems: none Results Review: All pre-operative results and documents have been reviewed as part of the pre-operative evaluation. [facility] Past Medical History Medical History Arthritis Cerebrovascular accident Chronic headaches Coronary artery disease Depression Hemorrhoids Hyperlipidemia Hypertension Memory loss Osteoarthritis Shingles Tuberculosis Wears glasses Surgical History Surgical History History of coronary angioplasty History of coronary artery stent placement History of hernia repair History of hysterectomy Family History Family History Father Family history of cardiovascular disease Sibling Family history of cardiovascular disease Hypoglycemia Lung disease Mother Family history of lung disease Other Arthritis Cancer Social History Social History Social History: Surrogate medical decision maker: Sharee Chawla, daughter. Code status: Full code. Smoking packs per day: 0.5 Smoking cigarettes per day: 10.0 Years smoked: 40 Smoking pack-years: 20.00 Smoking status: Former smoker Smoking end date: 11/24/93 Alcohol intake: never Drinks per week: 1 Substance use: never Substance use type: does not use Lack of Transportation: No Lack of Food: Sometimes True Current Housing: I Have Housing Concerned About Future Housing: No Difficulty Paying Gas/Electric Bills: No Difficulty Paying for Meds: No Currently Unemployed: No Education:
--- NOTE | 2022-11-27 13:15 | PM.IMPN ---
Progress Note: A&P Assessment and Plan (1) Chest pain: Qualifiers: Chest pain type: unspecified Qualified Code(s): R07.9 - Chest pain, unspecified Code(s): R07.9 - Chest pain, unspecified Status: Acute Assessment and Plan: Patient with chronic intermittent chest pain that was more persistent on the morning of admission. Chest pain is very similar to her prior episodes of chronic chest pain. Troponins are negative x3. EKG showing no acute changes. Cardiology was consulted and appreciate their input. Cardiology felt CP does not appear to be ischemic in nature Continue medical management with aspirin, Lipitor. No beta-maryana given her bradycardia. (2) Hypotension: Code(s): I95.9 - Hypotension, unspecified Status: Acute Assessment and Plan: Patient with hypotension on admission. She is on amlodipine, chlorthalidone, lisinopril and nitroglycerin patch. She states she has lost 35-40 lb although her weight is relatively stable since last admission. Patient with renal insufficiency which could be related to over-diuresis and/or lack of oral intake. Recent TSH was normal. Random Cortisol normal. SBP 155 -> 132 supine to standing. IV fluids given in ED. Antihypertensive medications were held and BP better. Add back Lisinopril. Follow (3) Falls: Code(s): W19.XXXA - Unspecified fall, initial encounter Status: Acute Assessment and Plan: Patient with falls. CT brain showing no acute findings. Cervical spine CT showing no fracture. Hip/pelvic xray showing OA but negative for fracture. Most likely falls related to orthostatic hypotension. Could be related to intermittent bradycardia as well but nothing on tele. Monitor on telemetry. PT/OT (4) Odynophagia: Code(s): R13.10 - Dysphagia, unspecified Status: Acute Assessment and Plan: Patient provides a history of odynophagia with food sticking in her lower chest. With vomiting, her symptoms resolved and appears that she has vomitus of undigested food to suggest esophageal stricture. She may not be eating much resulting in her renal insufficiency and hypotension. Speech therapy felt patient could have a soft & bite sized diet EGD showing Schatzki's ring, status post dilation, monitor p.o. intake, anticipate discharge tomorrow (5) Aortic stenosis: Qualifiers: Cardiac valve disease etiology: etiology unspecified Qualified Code(s): I35.0 - Nonrheumatic aortic (valve) stenosis Code(s): I35.0 - Nonrheumatic aortic (valve) stenosis Status: Acute Assessment and Plan: As above. KARMEN 11/25 showing very mild As stenosis with valve area 1.3cm2. LVH with good systolic function. Patient does not have aortic valve stenosis which is clinically relevant at this time (6) Coronary artery disease: Qualifiers: Coronary Disease-Associated Artery/Lesion type: unspecified vessel or lesion type [place] vs. transplanted heart: [place] heart Associated angina: without angina Qualified Code(s): I25.10 - Atherosclerotic heart disease of [place] coronary artery without angina pectoris Code(s): I25.10 - Atherosclerotic heart disease of [place] coronary artery without angina pectoris Status: Acute Assessment and Plan: Patient with known chronic coronary disease. She also has chronic chest pain. Medical management. (7) Hypokalemia: Code(s): E87.6 - Hypokalemia Status: Acute Assessment and Plan: Potassium low probably related to her chlorthalidone. Resolved. (8) Bradycardia: Code(s): R00.1 - Bradycardia, unspecified Status: Acute Assessment and Plan: Patient with bradycardia last admission and her metoprolol was stopped. She has not been started on this since then. Continue to monitor for bradycardia on telemetry. (9) Hypertension: Qualifiers: Hypertension type: primary hypertension
[2022-11-27] MEDS: ATORVASTATIN 40 MG TABLET 80 MG PO (19:54)
[2022-11-28] VITALS (13 sets, daily range): BP systolic 103–189; BP diastolic 40–82; PULSE 65–99; RESP 18–20; TEMP 36.6–37.1; O2SAT 97–100
[2022-11-28] MEDS: amLODIPine BESYLATE 5 MG TABLET 10 MG PO (08:58)
[2022-11-28] MEDS: ASPIRIN 325 MG ENTERIC TABLET PO (08:58)
[2022-11-28] MEDS: PANTOPRAZOLE 40 MG TABLET PO (08:59)
[2022-11-28] MEDS: SERTRALINE HCL 50 MG TABLET PO (08:59)
--- NOTE | 2022-11-28 11:00 | PM.DS ---
DS: Admitting Diagnosis Discharge Date 11/28/22 DS: Discharge Diagnosis Discharge Diagnosis (1) Chest pain: Qualifiers: Chest pain type: unspecified Qualified Code(s): R07.9 - Chest pain, unspecified Code(s): R07.9 - Chest pain, unspecified Status: Acute Assessment and Plan: Patient with chronic intermittent chest pain that was more persistent on the morning of admission. Chest pain is very similar to her prior episodes of chronic chest pain. Troponins are negative x3. EKG showing no acute changes. Cardiology was consulted and appreciate their input. Cardiology felt CP does not appear to be ischemic in nature Continue medical management with aspirin, Lipitor. No beta-maryana given her bradycardia. (2) Hypotension: Code(s): I95.9 - Hypotension, unspecified Status: Acute Assessment and Plan: Patient with hypotension on admission. She is on amlodipine, chlorthalidone, lisinopril and nitroglycerin patch. She states she has lost 35-40 lb although her weight is relatively stable since last admission. Patient with renal insufficiency which could be related to over-diuresis and/or lack of oral intake. Recent TSH was normal. Random Cortisol normal. SBP 155 -> 132 supine to standing. IV fluids given in ED. Antihypertensive medications were held and BP better. Add back Lisinopril. Follow (3) Falls: Code(s): W19.XXXA - Unspecified fall, initial encounter Status: Acute Assessment and Plan: Patient with falls. CT brain showing no acute findings. Cervical spine CT showing no fracture. Hip/pelvic xray showing OA but negative for fracture. Most likely falls related to orthostatic hypotension. Could be related to intermittent bradycardia as well but nothing on tele. Monitor on telemetry. PT/OT (4) Odynophagia: Code(s): R13.10 - Dysphagia, unspecified Status: Acute Assessment and Plan: Patient provides a history of odynophagia with food sticking in her lower chest. With vomiting, her symptoms resolved and appears that she has vomitus of undigested food to suggest esophageal stricture. She may not be eating much resulting in her renal insufficiency and hypotension. Speech therapy felt patient could have a soft & bite sized diet EGD showing Schatzki's ring, status post dilation, monitor p.o. intake, anticipate discharge tomorrow (5) Aortic stenosis: Qualifiers: Cardiac valve disease etiology: etiology unspecified Qualified Code(s): I35.0 - Nonrheumatic aortic (valve) stenosis Code(s): I35.0 - Nonrheumatic aortic (valve) stenosis Status: Acute Assessment and Plan: As above. KARMEN 11/25 showing very mild [place] stenosis with valve area 1.3cm2. LVH with good systolic function. Patient does not have aortic valve stenosis which is clinically relevant at this time (6) Coronary artery disease: Qualifiers: Coronary Disease-Associated Artery/Lesion type: unspecified vessel or lesion type [place] vs. transplanted heart: [place] heart Associated angina: without angina Qualified Code(s): I25.10 - Atherosclerotic heart disease of [place] coronary artery without angina pectoris Code(s): I25.10 - Atherosclerotic heart disease of [place] coronary artery without angina pectoris Status: Acute Assessment and Plan: Patient with known chronic coronary disease. She also has chronic chest pain. Medical management. (7) Hypokalemia: Code(s): E87.6 - Hypokalemia Status: Acute Assessment and Plan: Potassium low probably related to her chlorthalidone. Resolved. (8) Bradycardia: Code(s): R00.1 - Bradycardia, unspecified Status: Acute Assessment and Plan: Patient with bradycardia last admission and her metoprolol was stopped. She has not been started on this since then. Continue to monitor for bradycardia on telemetry. (9) Hypertension: Sarbjit
--- NOTE | 2022-11-28 13:19 | WPDANESPN ---
Anes - Prog Note Post-Op Date/Time: 11/28/22 13:19 Vital Signs: Last Vital Signs Temp 36.9 C 11/28/22 05:00 Pulse 79 11/28/22 05:00 Resp 18 11/28/22 05:00 BP 103/70 11/28/22 05:00 Pulse Ox 98 11/28/22 05:00 O2 Del Method Room Air 11/28/22 08:00 O2 Flow Rate 3 11/25/22 16:05 Pain Score (VAS): 0 I/O: Intake & Output 11/27/22 11/28/22 11/28/22 23:59 07:59 15:59 Intake Total 620 300 240 Balance 620 300 240 Laboratory Tests 11/26/22 04:47 11/26/22 04:47 Patient Feedback: Patient satisfied with anesthetic care.
--- NOTE | 2022-11-28 13:43 | PM.IMPN ---
Progress Note: A&P Assessment and Plan (1) Chest pain: Qualifiers: Chest pain type: unspecified Qualified Code(s): R07.9 - Chest pain, unspecified Code(s): R07.9 - Chest pain, unspecified Status: Acute Assessment and Plan: Patient with chronic intermittent chest pain that was more persistent on the morning of admission. Chest pain is very similar to her prior episodes of chronic chest pain. Troponins are negative x3. EKG showing no acute changes. Cardiology was consulted and appreciate their input. Cardiology felt CP does not appear to be ischemic in nature Continue medical management with aspirin, Lipitor. No beta-maryana given her bradycardia. new onset large discrepancy in BP between RUE and LUE noted, CTA ordered and pending (2) Hypotension: Code(s): I95.9 - Hypotension, unspecified Status: Acute Assessment and Plan: Patient with hypotension on admission. She is on amlodipine, chlorthalidone, lisinopril and nitroglycerin patch. She states she has lost 35-40 lb although her weight is relatively stable since last admission. Patient with renal insufficiency which could be related to over-diuresis and/or lack of oral intake. Recent TSH was normal. Random Cortisol normal. SBP 155 -> 132 supine to standing. IV fluids given in ED. Antihypertensive medications were held and BP better. Add back Lisinopril. Follow (3) Falls: Code(s): W19.XXXA - Unspecified fall, initial encounter Status: Acute Assessment and Plan: Patient with falls. CT brain showing no acute findings. Cervical spine CT showing no fracture. Hip/pelvic xray showing OA but negative for fracture. Most likely falls related to orthostatic hypotension. Could be related to intermittent bradycardia as well but nothing on tele. Monitor on telemetry. PT/OT (4) Odynophagia: Code(s): R13.10 - Dysphagia, unspecified Status: Acute Assessment and Plan: Patient provides a history of odynophagia with food sticking in her lower chest. With vomiting, her symptoms resolved and appears that she has vomitus of undigested food to suggest esophageal stricture. She may not be eating much resulting in her renal insufficiency and hypotension. Speech therapy felt patient could have a soft & bite sized diet EGD showing Schatzki's ring, status post dilation, monitor p.o. intake, anticipate discharge soon (5) Aortic stenosis: Qualifiers: Cardiac valve disease etiology: etiology unspecified Qualified Code(s): I35.0 - Nonrheumatic aortic (valve) stenosis Code(s): I35.0 - Nonrheumatic aortic (valve) stenosis Status: Acute Assessment and Plan: As above. KARMEN 11/25 showing very mild [place] stenosis with valve area 1.3cm2. LVH with good systolic function. Patient does not have aortic valve stenosis which is clinically relevant at this time (6) Coronary artery disease: Qualifiers: Coronary Disease-Associated Artery/Lesion type: unspecified vessel or lesion type [place] vs. transplanted heart: [place] heart Associated angina: without angina Qualified Code(s): I25.10 - Atherosclerotic heart disease of [place] coronary artery without angina pectoris Code(s): I25.10 - Atherosclerotic heart disease of [place] coronary artery without angina pectoris Status: Acute Assessment and Plan: Patient with known chronic coronary disease. She also has chronic chest pain. Medical management. (7) Hypokalemia: Code(s): E87.6 - Hypokalemia Status: Acute Assessment and Plan: Potassium low probably related to her chlorthalidone. Resolved. (8) Bradycardia: Code(s): R00.1 - Bradycardia, unspecified Status: Acute Assessment and Plan: Patient with bradycardia last admission and her metoprolol was stopped. She has not been started on this since then. Continue to monitor for bradycardia on telemetry. (9)
[2022-11-28] MEDS: ATORVASTATIN 40 MG TABLET 80 MG PO (20:21)
[2022-11-28] MEDS: ACETAMINOPHEN 500 MG TABLET PO (20:23)
[2022-11-29] VITALS (14 sets, daily range): BP systolic 75–155; BP diastolic 43–74; PULSE 68–86; RESP 16–18; TEMP 35.8–36.9; O2SAT 97–99
--- NOTE | 2022-11-29 08:24 | PM.IMPN ---
Progress Note: A&P Assessment and Plan (1) Chest pain: Qualifiers: Chest pain type: unspecified Qualified Code(s): R07.9 - Chest pain, unspecified Code(s): R07.9 - Chest pain, unspecified Status: Acute Assessment and Plan: Patient with chronic intermittent chest pain that was more persistent on the morning of admission. Chest pain is very similar to her prior episodes of chronic chest pain. Troponins are negative x3. EKG showing no acute changes. Cardiology was consulted and appreciate their input. Cardiology felt CP does not appear to be ischemic in nature Continue medical management with aspirin, Lipitor. No beta-maryana given her bradycardia. new onset large discrepancy in BP between RUE and LUE noted, CTA ordered and pending, no dissection seen, but severe vascular disease noted with possible aortic stenosis, defer to cardio for further recs, transfer for vascular consult? (2) Hypotension: Code(s): I95.9 - Hypotension, unspecified Status: Acute Assessment and Plan: Patient with hypotension on admission. She is on amlodipine, chlorthalidone, lisinopril and nitroglycerin patch. She states she has lost 35-40 lb although her weight is relatively stable since last admission. Patient with renal insufficiency which could be related to over-diuresis and/or lack of oral intake. Recent TSH was normal. Random Cortisol normal. SBP 155 -> 132 supine to standing. IV fluids given in ED. Antihypertensive medications were held and BP better. Add back Lisinopril. Follow (3) Falls: Code(s): W19.XXXA - Unspecified fall, initial encounter Status: Acute Assessment and Plan: Patient with falls. CT brain showing no acute findings. Cervical spine CT showing no fracture. Hip/pelvic xray showing OA but negative for fracture. Most likely falls related to orthostatic hypotension. Could be related to intermittent bradycardia as well but nothing on tele. Monitor on telemetry. PT/OT (4) Odynophagia: Code(s): R13.10 - Dysphagia, unspecified Status: Acute Assessment and Plan: Patient provides a history of odynophagia with food sticking in her lower chest. With vomiting, her symptoms resolved and appears that she has vomitus of undigested food to suggest esophageal stricture. She may not be eating much resulting in her renal insufficiency and hypotension. Speech therapy felt patient could have a soft & bite sized diet EGD showing Schatzki's ring, status post dilation, monitor p.o. intake, still with some mild choking, monitor (5) Aortic stenosis: Qualifiers: Cardiac valve disease etiology: etiology unspecified Qualified Code(s): I35.0 - Nonrheumatic aortic (valve) stenosis Code(s): I35.0 - Nonrheumatic aortic (valve) stenosis Status: Acute Assessment and Plan: As above. KARMEN 11/25 showing very mild As stenosis with valve area 1.3cm2. LVH with good systolic function. Patient does not have aortic valve stenosis which is clinically relevant at this time (6) Coronary artery disease: Qualifiers: Associated angina: without angina Coronary Disease-Associated Artery/Lesion type: unspecified vessel or lesion type [place] vs. transplanted heart: [place] heart Qualified Code(s): I25.10 - Atherosclerotic heart disease of [place] coronary artery without angina pectoris Code(s): I25.10 - Atherosclerotic heart disease of [place] coronary artery without angina pectoris Status: Acute Assessment and Plan: Patient with known chronic coronary disease. She also has chronic chest pain. Medical management. (7) Hypokalemia: Code(s): E87.6 - Hypokalemia Status: Acute Assessment and Plan: Potassium low probably related to her chlorthalidone. Resolved. (8) Bradycardia: Code(s): R00.1 - Bradycardia, unspecified Status: Acute Assessment and Plan: Patient with b
[2022-11-29] MEDS: PANTOPRAZOLE 40 MG TABLET PO (09:11)
[2022-11-29] MEDS: SERTRALINE HCL 50 MG TABLET PO (09:11)
[2022-11-29] MEDS: amLODIPine BESYLATE 5 MG TABLET 10 MG PO (09:11)
[2022-11-29] MEDS: ASPIRIN 325 MG ENTERIC TABLET PO (09:11)
[2022-11-29] MEDS: CHLORTHALIDONE 25 MG TABLET PO (09:11)
--- NOTE | 2022-11-29 10:39 | PC.NURSE ---
Patient off of unit to ultrasound
--- NOTE | 2022-11-29 11:13 | PCNFU ---
Nutrition Follow-Up Complete: Inadequate energy intake related to NPO status as evidenced by current diet order goal: Diet order PO Intake greater than 50% of meals Patient is meeting goal. No new goal. Pt current nutrition is Soft and Bite Sized, Level 6. Last recorded weight is 77.9 kg Bowel Motility:+Bm reported 11/29 Labs Reviewed:No new labs to report. Meds Noted:Protonix, Lovenox, Norvasc. Skin: WNL Additional Notes: Patient is tolerating a Soft and Bite Sized, Level 6 diet. Oral Intake 75-100% reported. Diet supplements are providing an additional 220 kcals and 9 gms protein. Agree with diet orders. Monitor intake, wt, labs. Follow up in 5 days.
--- NOTE | 2022-11-29 11:22 | PC.NURSE ---
Patient returned to unit form ultrasound
--- NOTE | 2022-11-29 14:04 | PCPTNOTE ---
Attempted to see patient for PT, however patient declined. Patient reported she just got back to bed with nursing and wanted to rest at this time. Patient was up for meals and testing this morning.
[2022-11-29] MEDS: ATORVASTATIN 40 MG TABLET 80 MG PO (20:35)
[2022-11-30] VITALS: PULSE 80
[2022-11-30 04:00] VITALS: PULSE 75
[2022-11-30 05:42] VITALS: BP 100/56; PULSE 76; RESP 16; TEMP 36.4; O2SAT 98
[2022-11-30 08:00] VITALS: PULSE 65
[2022-11-30] MEDS: ASPIRIN 325 MG ENTERIC TABLET PO (09:14)
[2022-11-30 09:15] VITALS: BP 125/63
[2022-11-30] MEDS: amLODIPine BESYLATE 5 MG TABLET 10 MG PO (09:15)
[2022-11-30] MEDS: PANTOPRAZOLE 40 MG TABLET PO (09:15)
[2022-11-30] MEDS: SERTRALINE HCL 50 MG TABLET PO (09:15)
[2022-11-30] MEDS: CHLORTHALIDONE 25 MG TABLET PO (09:16)
--- NOTE | 2022-11-30 10:10 | PM.DS ---
DS: Admitting Diagnosis Discharge Date 11/30/22 Admitting Diagnosis chest pain DS: Discharge Diagnosis Discharge Diagnosis (1) Chest pain: Qualifiers: Chest pain type: unspecified Qualified Code(s): R07.9 - Chest pain, unspecified Code(s): R07.9 - Chest pain, unspecified Status: Acute Assessment and Plan: Patient with chronic intermittent chest pain that was more persistent on the morning of admission. Chest pain is very similar to her prior episodes of chronic chest pain. Troponins are negative x3. EKG showing no acute changes. Cardiology was consulted and appreciate their input. Cardiology felt CP does not appear to be ischemic in nature Continue medical management with aspirin, Lipitor. No beta-maryana given her bradycardia. new onset large discrepancy in BP between RUE and LUE noted, CTA ordered and pending, no dissection seen, but severe vascular disease noted with possible aortic stenosis, defer to cardio for further recs, transfer for vascular consult? (2) Hypotension: Code(s): I95.9 - Hypotension, unspecified Status: Acute Assessment and Plan: Patient with hypotension on admission. She is on amlodipine, chlorthalidone, lisinopril and nitroglycerin patch. She states she has lost 35-40 lb although her weight is relatively stable since last admission. Patient with renal insufficiency which could be related to over-diuresis and/or lack of oral intake. Recent TSH was normal. Random Cortisol normal. SBP 155 -> 132 supine to standing. IV fluids given in ED. Antihypertensive medications were held and BP better. Add back Lisinopril. Follow (3) Falls: Code(s): W19.XXXA - Unspecified fall, initial encounter Status: Acute Assessment and Plan: Patient with falls. CT brain showing no acute findings. Cervical spine CT showing no fracture. Hip/pelvic xray showing OA but negative for fracture. Most likely falls related to orthostatic hypotension. Could be related to intermittent bradycardia as well but nothing on tele. Monitor on telemetry. PT/OT (4) Odynophagia: Code(s): R13.10 - Dysphagia, unspecified Status: Acute Assessment and Plan: Patient provides a history of odynophagia with food sticking in her lower chest. With vomiting, her symptoms resolved and appears that she has vomitus of undigested food to suggest esophageal stricture. She may not be eating much resulting in her renal insufficiency and hypotension. Speech therapy felt patient could have a soft & bite sized diet EGD showing Schatzki's ring, status post dilation, monitor p.o. intake, still with some mild choking, monitor (5) Aortic stenosis: Qualifiers: Cardiac valve disease etiology: etiology unspecified Qualified Code(s): I35.0 - Nonrheumatic aortic (valve) stenosis Code(s): I35.0 - Nonrheumatic aortic (valve) stenosis Status: Acute Assessment and Plan: As above. KARMEN 11/25 showing very mild As stenosis with valve area 1.3cm2. LVH with good systolic function. Patient does not have aortic valve stenosis which is clinically relevant at this time (6) Coronary artery disease: Qualifiers: Associated angina: without angina Coronary Disease-Associated Artery/Lesion type: unspecified vessel or lesion type [place] vs. transplanted heart: [place] heart Qualified Code(s): I25.10 - Atherosclerotic heart disease of [place] coronary artery without angina pectoris Code(s): I25.10 - Atherosclerotic heart disease of [place] coronary artery without angina pectoris Status: Acute Assessment and Plan: Patient with known chronic coronary disease. She also has chronic chest pain. Medical management. (7) Hypokalemia: Code(s): E87.6 - Hypokalemia Status: Acute Assessment and Plan: Potassium low probably related to her chlorthalidone. Resolved. (8) Bradycardia: Code(s): R00.1 -
[2022-11-30 12:00] VITALS: PULSE 77
== END 2022-11-30 16:22 | disposition home health service (06) | DRG 307 ==
LOC: ANHED 07:01 → ANHIMU 08:39 → ANH3MED 11-27 12:54 → ANHIMU 12-02 12:08
PROVIDERS: Internal Medicine Gastroenterology; Specialist; Admitting Provider Internal Medicine; Emergency Provider Emergency Medicine; PCP Internal Medicine; Visit Provider Student in an Organized Health Care Education/Training Program
PROC: B24BZZ4 Ultrasonography of Heart with Aorta, Transesophageal (ICD-10-PCS; CPT 93312; principal; 2022-11-25 15:00)
PROC: 0DJ08ZZ Inspection of Upper Intestinal Tract, Via Natural or Artificial Opening Endoscopic (ICD-10-PCS; CPT 43235; principal; 2022-11-27 12:30)
DX: I35.0 Nonrheumatic aortic (valve) stenosis (principal); I25.82 Chronic total occlusion of coronary artery; K22.2 Esophageal obstruction; R07.9 Chest pain, unspecified; E78.5 Hyperlipidemia, unspecified; E87.6 Hypokalemia; F32.A Depression, unspecified; I25.10 Atherosclerotic heart disease of native coronary artery without angina pectoris; I11.9 Hypertensive heart disease without heart failure; I95.9 Hypotension, unspecified; I25.2 Old myocardial infarction; M19.90 Unspecified osteoarthritis, unspecified site; R29.6 Repeated falls; R00.1 Bradycardia, unspecified; Z79.82 Long term (current) use of aspirin; Z86.73 Personal history of transient ischemic attack (TIA), and cerebral infarction without residual deficits; Z95.5 Presence of coronary angioplasty implant and graft; Z90.710 Acquired absence of both cervix and uterus; Z87.891 Personal history of nicotine dependence; Z91.81 History of falling
CPT/HCPCS: 36415; 70450; 71045; 71275; 72125; 73521; 74174; 74177; 80053; 80069; 82533; 82607; 82746; 82948; 83690; 83735; 84484; 85025; 85610; 85730; 92610; 93005; 93312; 93320; 93325; 93922; 96360; 96361; 97110; 97161; 97165; 97530; 97535; 99285; A9270; G0378; J1650; J2001; J2250; J2704; J3010; J7030; J7040; J7120; Q9967

== ENCOUNTER 2022-12-02 12:02 | Inpatient (IN) | payer MEDICARE, MEDICAID, SELFPAY ==
[2022-12-02] VITALS (16 sets, daily range): BP systolic 90–126; BP diastolic 43–72; PULSE 64–97; RESP 13–29; TEMP 35.9–36.6; O2SAT 91–100; BMI 34.9
--- NOTE | ~2022-12-02 | XR_ITS ---
Portable chest x-ray Comparison: 11/25/2022 Clinical History: Weakness Findings: Lungs are clear, without focal consolidation or pleural effusion. Cardiomediastinal silh ouette is stable. Bones and soft tissues are unremarkable. Impression: Clear lungs. Reviewed, dictated and finalized at location . Impression: Clear lungs.
--- NOTE | ~2022-12-02 | CT_ITS ---
EXAMINATION: CT abdomen pelvis w con DATE: 12/02/2022 15:05 INDICATION: Epigastric pain. Nausea and vomiting. TECHNIQUE: Computed tomography (CT) of the abdomen and pelvis was performed with 100 cc Omnipaque 350 intravenous contrast. The dose-length product was 933.98 mGy-cm. Automated exposure control and iter ative reconstruction technique were employed. COMPARISON: CT dated 11/28/2022 FINDINGS: Lung bases unremarkable. Heart size normal. No significant pleural or pericardial effusion. There are calcified granulomas of the spleen. The liver, pancreas, right adrenal gland is unremarkab le. There is nodular thickening of the left adrenal gland, likely related to benign hyperplasia or ad enomatous change. There is atrophy of the left kidney. Gallbladder is present. There is extensive ath erosclerosis aortobiiliac iliac artery bypass graft is present. Colonic diverticulosis without eviden ce for diverticulitis. There are surgical laparotomy changes in the anterior abdominal wall. No lymphadenopathy. There is mild right hydronephrosis. No obstructing stone or mass. Severe lower th oracic and lumbar spondylosis. There is stenosis at the origin of the celiac axis, SMA and renal latoya fern. No acute abdominal abnormality. No significant interval change. IMPRESSION: 1. Reviewed, dictated and finalized at location B.
--- NOTE | 2022-12-02 12:12 | ECG_ITS ---
Measurements Intervals [place] Rate: 79 P: 53 FL: 171 QRS: 20 QRSD: 109 T: 161 QT: 420 QTc: 484 Interpretive Statements SINUS RHYTHM WITH FREQUENT VENTRICULAR PREMATURE COMPLEXES ST DEVIATION AND MODERATE T-WAVE ABNORMALITY, CONSIDER ANTEROLATERAL ISCHEMIA [-0.1+ mV T WAVE IN V3-V6] ABNORMAL ECG COMPARED TO ECG 11/25/2022 05:03:23 VENTRICULAR ECTOPICS ARE NOW PRESENT Electronically Signed On 12-02-2022 14:59:10 CDT by Rodney Guallpa M.D.
[2022-12-02 12:33] LABS: Basophils Percent Auto 0.6 % (0.2-1.2); Eosinophils Absolute Auto 0.1 K/mm3 (0-0.3); Hematocrit 39.3 % (37.0-47.0); Hemoglobin 12.6 g/dL (12.0-15.0); Immature Granulocyte Absolute 0.02 K/mm3 (0.00-0.031); Immature Granulocyte Percent A 0.3 % (0-0.5); Lymphocytes Percent Auto 23.4 % (18.3-44.2); Mean Corpuscular HGB Conc 32.1 g/dl (32-36); Mean Corpuscular Hemoglobin 28.3 pg (26-34); Mean Corpuscular Volume 88.3 fl (80-100); Mean Platelet Volume 10.9 fl (7.4-10.4); Monocytes Absolute Auto 0.7 K/mm3 (0.1-0.6); Monocytes Percent Auto 9.7 % (2.6-8.5); Neutrophils Absolute Auto 4.4 K/mm3 (1.3-6.7); Platelet Count Result 193 k/mm3 (150-375); Red Blood Count 4.45 M/mm3 (4.2-5.4); Red Cell Distribution Width 14.6 % (11.5-14.5); White Blood Count 6.8 K/mm3 (4.5-10.0)
[2022-12-02 12:44] LABS: Alanine Aminotransferase 18 U/L (6-35); Albumin Level 3.8 g/dL (3.5-5.1); Alkaline Phosphatase 85 U/L (38-126); Anion Gap 5 mmol/L (8-16); Aspartate Amino Transferase 30 U/L (14-36); Blood Urea Nitrogen 18 mg/dL (7-17); Calcium 9.7 mg/dL (8.4-10.2); Carbon Dioxide 25 mmol/L (22-30); Chloride 102 mmol/L (98-107); Estimated Glomerular Filt Rate 43; Glucose 105 mg/dL (65-110); Potassium 3.9 mmol/L (3.4-5.0); Sodium 132 mmol/L (137-145)
[2022-12-02 13:36] LABS: Lactic Acid Reflex 1.5 mmol/L (0.7-2.0); Lipase 186 U/L (23-300)
[2022-12-02 13:39] LABS: Prothrombin Time 13.3 Seconds (11.1-14.7)
[2022-12-02 13:40] LABS: Partial Thromboplastin Time 26.4 SECONDS (22.3-36.8)
[2022-12-02 13:47] LABS: Troponin I 0.025 ng/mL (0.000-0.034)
--- NOTE | 2022-12-02 13:55 | ED.WEAKNESS ---
HPI - Weakness General Chief complaint: Weakness Stated complaint: weakness, low BP Time Seen by Provider: 12/02/22 13:03 History of Present Illness HPI Narrative: Patient is an 82-year-old female with a history of CAD, CVA, aortic stenosis, GERD presenting with weakness and low blood pressure. Patient was just discharged from this facility over the weekend. States that she was here for vomiting and chest pain. They made some medication adjustments and she was able to go home though she states that she continued to feel unwell. States she has been persistently nauseated and only able to eat and drink a very small amount. Today home health came and she had a very low blood pressure so EMS was called. EMS found her to be bradycardic in the 30s to 40s as well as hypotensive. She was given a dose of atropine with improvement in her heart rate. Patient was found to have a Nitropatch on upon arrival. Currently, patient continues to feel weak and she complains of chronic abdominal pain. No chest pain or shortness of breath. No numbness or weakness. No dysuria. No leg swelling. No further complaints. Related Data Home Medications Medication Instructions Recorded Confirmed aspirin 325 mg tablet,delayed 325 mg PO DAILY 01/27/19 12/02/22 release fluticasone propionate 50 1 spray intranasal DAILY PRN 01/27/19 12/02/22 mcg/actuation nasal Allergy Symptoms spray,suspension nitroglycerin 0.2 mg/hr 1 patch transdermal DAILY 01/27/19 12/02/22 transdermal 24 hour patch acetaminophen 500 mg tablet 500 mg PO Q6H PRN Breakthrough Pain 01/12/20 12/02/22 atorvastatin 40 mg tablet 80 mg PO QHS 10/10/22 12/02/22 gabapentin 300 mg capsule 300 mg PO BID PRN pain 11/25/22 12/02/22 Allergies Allergy/AdvReac Type Severity Reaction Status Date / Time No Known Allergies Allergy Verified 11/27/22 11:23 Review of Systems Review of Systems: All systems reviewed & are unremarkable except as noted in HPI and below PMFSH Past Medical History Medical History (Updated 12/03/22 @ 18:30 by Deepthi Kaiser MD) Arthritis Cerebrovascular accident Chronic headaches Coronary artery disease Depression Hemorrhoids Hyperlipidemia Hypertension Memory loss Osteoarthritis Peripheral vascular disease Shingles Tuberculosis Wears glasses Surgical History Surgical History History of coronary angioplasty History of coronary artery stent placement History of hernia repair History of hysterectomy Family History Family History Father Family history of cardiovascular disease Sibling Family history of cardiovascular disease Hypoglycemia Lung disease Mother Family history of lung disease Other Arthritis Cancer Social History Social History Social History: Surrogate medical decision maker: Sharee Chawla, daughter. Code status: Full code. Smoking packs per day: 0.5 Smoking cigarettes per day: 10.0 Years smoked: 40 Smoking pack-years: 20.00 Smoking status: Never smoker Smoking end date: 11/24/93 Alcohol intake: never Drinks per week: 1 Substance use: never Substance use type: does not use Lack of Transportation: No Lack of Food: Never True Current Housing: I Have Housing Concerned About Future Housing: No Difficulty Paying Gas/Electric Bills: No Difficulty Paying for Meds: No Currently Unemployed: No Education: High School Diploma/GED Difficulty w/ Childcare or Family Care: No Occupation/Education: retired Spiritual care concerns: No Exam Narrative: GENERAL: Chronically ill-appearing, no acute distress, pleasant and cooperative HEAD: Normocephalic, atraumatic. EYES: PERRLA and EOMI. ENT: Mucous membranes dry NECK: Supple. CHEST: Clear to auscultation. No respiratory distress. HEART: Regular rate and rhythm
[2022-12-02] MEDS: SODIUM CHLORIDE 0.9% IV 1,000 ML 999 ML IV CONT ×2 (14:15→15:18)
--- NOTE | 2022-12-02 14:34 | PM.IMHP ---
H&P: HPI History of Present Illness Date/Time: 12/02/22 18:30 Chief Complaint: Bradycardia and hypotension Narrative: This is an 82-year-old female patient was just discharged from the hospital for a stay with nausea vomiting and syncope. Patient reports that home health nurse arrived today and found that the patient was not feeling well. The nurse was unable to obtain blood pressure or feel a pulse so she called EMS. In one arm a blood pressure was in the 140s in the other arm it was 70 over 30s. Patient had a heart rate in the 30s as well. She received IV atropine which improved her blood pressure and her heart rate. Patient was transported back to our emergency department where she continued to have softer blood pressures. Patient received 2 L IV fluids for hydration with the suspicion that her recent vomiting has caused her to be dehydrated. Patient reports not eating or drinking well. Her laboratory assessment does show some mild hyponatremia and minor MING with serum creatinine 1.2 and a baseline closer to 0.9. Repeat Troponin now positive. Patient reports that she has had several recent episodes of passing out and bradycardia. Patient reports that her follow-up visit with Cardiology has been canceled and rescheduled for February. Review of Systems Review of Systems: All systems reviewed & are unremarkable except as noted in HPI and below PMFSH Past Medical History Medical History Arthritis Cerebrovascular accident Chronic headaches Coronary artery disease Depression Hemorrhoids Hyperlipidemia Hypertension Memory loss Osteoarthritis Shingles Tuberculosis Wears glasses Surgical History Surgical History History of coronary angioplasty History of coronary artery stent placement History of hernia repair History of hysterectomy Family History Family History Father Family history of cardiovascular disease Sibling Family history of cardiovascular disease Hypoglycemia Lung disease Mother Family history of lung disease Other Arthritis Cancer Social History Social History Social History: Surrogate medical decision maker: Sharee Chawla, daughter. Code status: Full code. Smoking packs per day: 0.5 Smoking cigarettes per day: 10.0 Years smoked: 40 Smoking pack-years: 20.00 Smoking status: Never smoker Smoking end date: 11/24/93 Alcohol intake: never Drinks per week: 1 Substance use: never Substance use type: does not use Lack of Transportation: No Lack of Food: Never True Current Housing: I Have Housing Concerned About Future Housing: No Difficulty Paying Gas/Electric Bills: No Difficulty Paying for Meds: No Currently Unemployed: No Education: High School Diploma/GED Difficulty w/ Childcare or Family Care: No Occupation/Education: retired Spiritual care concerns: No Meds Home Medications and Allergies Home Medications Medication Instructions Recorded Confirmed Type aspirin 325 mg tablet,delayed 325 mg PO DAILY 01/27/19 12/02/22 History release fluticasone propionate 50 1 spray intranasal DAILY PRN 01/27/19 12/02/22 History mcg/actuation nasal Allergy Symptoms spray,suspension nitroglycerin 0.2 mg/hr 1 patch transdermal DAILY 01/27/19 12/02/22 History transdermal 24 hour patch acetaminophen 500 mg tablet 500 mg PO Q6H PRN Breakthrough Pain 01/12/20 12/02/22 History cholecalciferol (vitamin D3) 1,250 1,250 mcg PO WEEKLY #8 caps 03/21/21 12/02/22 Rx mcg (50,000 unit) capsule sertraline 50 mg tablet 50 mg PO DAILY #90 tabs 01/30/22 12/02/22 Rx atorvastatin 40 mg tablet 80 mg PO QHS 10/10/22 12/02/22 History lisinopril 20 mg tablet 20 mg PO DAILY #90 tabs 11/05/22 12/02/22 Rx gabapentin 300 mg capsule 300
[2022-12-02 14:53] LABS: Appearance Urine Clear (Clear); Bacteria Urine None Seen /hpf; Bilirubin Urine Negative (Negative); Blood Urine 1+ (Negative); Color Urine Yellow (Yellow); Glucose Urine UA Negative (Negative); Ketones Urine Negative (Negative); Leukocyte Esterase Ur 1+ LEU/UL (Negative); Need Manual Microscopic Reviewed; Nitrate Urine Negative (Negative); Non Pathogenic Casts 0-2; Protein Urine Negative (Negative); RBC Urine 0-2 /hpf (0-2); Specific Grav Ur 1.005 (1.001-1.035); Squamous Epithelial Cell Urine Occasional /hpf (Few); Urobilinogen Urine 0.2 mg/dL (<2.0); WBC Urine 0-5 /hpf; pH Urine 6.5 (5.0-9.0)
[2022-12-02 14:56] LABS: Add Urine Microscopic? YES
--- NOTE | 2022-12-02 18:10 | ADMGEN ---
This patient, Kylie Nunn, was admitted to IMU Room 210-01. Patient/family oriented to hospital policies and general routines including ID bracelet, bed and alarms, visiting hours, pain management, procedures, bathroom and other care routines, personal items, smoking policy, room service/diet, and visiting hours. Information on how to activate the Rapid Response Team has been discussed. Patient/Family are encouraged to report perceived risks to care and to ask questions if they do not understand what they are told or what they should do.
[2022-12-02 20:03] LABS: Troponin I 0.115 ng/mL (0.000-0.034)
[2022-12-02] MEDS: HEPARIN SOD/D5W 100 UNITS/ML 25,000 UNITS/250 ML BAG 8 UNITS IV CONT (22:44)
[2022-12-02] MEDS: HEPARIN SODIUM 5,000 UNITS/ML VIAL 4000 UNITS IV PUSH (22:44)
[2022-12-02] MEDS: ATORVASTATIN 40 MG TABLET 80 MG PO (22:45)
[2022-12-03] VITALS (36 sets, daily range): BP systolic 78–172; BP diastolic 44–99; PULSE 58–85; RESP 14–20; TEMP 36.2–36.7; O2SAT 95–100
--- NOTE | 2022-12-03 | ECHO_ITS ---
Patient Info Name: Kylie Nunn Age: 82 years : 1940 Gender: Female Ht: 62 in Wt: 165 lbs BSA: 1.84 m2 HR: 59 bpm BP: 122 / 78 mmHg Heart Rhythm: Sinus Rhythm Technical Quality: Fair Exam Date: 12/03/2022 9:43 AM Exam Location: [facility] Patient Status: Inpatient Admit Date: 12/03/2022 Staff Ordering Physician: Rom Brandon APRN Manager It Security: Brandin Choudhary RDCS Attending Provider: Rose Bustos DO Referring Physician: Aleksandr LEE; Exam Type: CA echo dop color flow w con Study Info Indications - NSTEMI Complete two-dimensional, color flow and Doppler transthoracic echocardiogram is performed with contrast to opacify the left ventricle and to improve the deliniation of the left ventricle endocardial borders. Contrast/Agitated Saline Contrast/Ag. Saline: Definity Amount: 3.00 ml Summary 1. Normal left ventricular size with moderate concentric hypertrophy. Overall good systolic function of all segments with no segmental wall motion abnormalities on this technically difficult study. Ejection fraction is 58%. Grade 2 diastolic dysfunction is present. 2. Left atrial chamber dimension is moderately enlarged. 3. No pulmonary hypertension, estimated pulmonary arterial systolic pressure is 30 mmHg. 4. The aortic valve is not well visualized but appears calcified with decreased excursion. Doppler the aortic valve was not optimal so no judgment of the degree of stenosis can be made on this study. 5. Technically difficult study, definity echo contrast used. 6. NSR. Left Ventricle Left ventricular chamber dimension is normal. Left ventricular systolic function is normal, estimated at 65-70%. There is moderately increased left ventricular wall thickness. Left ventricular septal wall motion is normal. The left ventricular diastolic function is grade II diastolic dysfunction. Right Ventricle Right ventricular chamber dimension is normal. Right ventricular systolic function is normal. Left Atria Left atrial chamber dimension is moderately enlarged. Right Atria Right atrial chamber dimension is normal. Aortic Valve The aortic valve is not well visualized. There is no aortic valve sclerosis. There is no aortic valve stenosis. There is no aortic valve regurgitation. There is severe aortic valve calcification. Pulmonic Valve The pulmonic valve is normal. There is no pulmonic valve stenosis. There is no pulmonic regurgitation. Mitral Valve The mitral valve has normal leaflets. There is no mitral valve stenosis. There is trace mitral valve regurgitation. Tricuspid Valve The tricuspid valve leaflets are normal. There is no significant tricuspid valve stenosis. There is trace tricuspid valve regurgitation. No pulmonary hypertension, estimated pulmonary arterial systolic pressure is 30 mmHg. Pericardium/Pleural The pericardium appears normal. There is no pericardial effusion. Inferior Vena Cava Normal inferior vena cava with >50% collapse upon inspiration consistent with Empty right atrial pressure, 10 mmHg. Aorta The aortic root size at the sinus of Valsalva is normal. The prox ascending aorta size is normal. Left Ventricular Outflow Tract Name Value Normal LVOT 2D LVOT Diameter 2.00 cm
[2022-12-03 05:12] LABS: Basophils Percent Auto 0.6 % (0.2-1.2); Eosinophils Absolute Auto 0.1 K/mm3 (0-0.3); Eosinophils Percent Auto 1.9 % (0-4.4); Hematocrit 37.4 % (37.0-47.0); Immature Granulocyte Absolute 0.02 K/mm3 (0.00-0.031); Immature Granulocyte Percent A 0.3 % (0-0.5); Lymphocytes Absolute Auto 2.09 K/mm3 (0.9-3.2); Lymphocytes Percent Auto 32.9 % (18.3-44.2); Mean Corpuscular HGB Conc 32.1 g/dl (32-36); Mean Corpuscular Hemoglobin 28.2 pg (26-34); Mean Corpuscular Volume 87.8 fl (80-100); Mean Platelet Volume 10.7 fl (7.4-10.4); Monocytes Absolute Auto 0.5 K/mm3 (0.1-0.6); Monocytes Percent Auto 7.9 % (2.6-8.5); Neutrophils Absolute Auto 3.6 K/mm3 (1.3-6.7); Neutrophils Percent Auto 56.4 % (45.5-73.1); Platelet Count Result 189 k/mm3 (150-375); Red Blood Count 4.26 M/mm3 (4.2-5.4); Red Cell Distribution Width 14.6 % (11.5-14.5); White Blood Count 6.4 K/mm3 (4.5-10.0)
[2022-12-03 05:22] LABS: Partial Thromboplastin Time 93.1 SECONDS (22.3-36.8)
[2022-12-03 05:24] LABS: Alanine Aminotransferase 14 U/L (6-35); Albumin Level 3.4 g/dL (3.5-5.1); Alkaline Phosphatase 79 U/L (38-126); Anion Gap 7 mmol/L (8-16); Aspartate Amino Transferase 30 U/L (14-36); Blood Urea Nitrogen 14 mg/dL (7-17); Calcium 9.1 mg/dL (8.4-10.2); Carbon Dioxide 24 mmol/L (22-30); Chloride 104 mmol/L (98-107); Estimated CRCL calculation 40 ml/min; Estimated Glomerular Filt Rate 53; Glucose 90 mg/dL (65-110); Potassium 3.4 mmol/L (3.4-5.0); Sodium 135 mmol/L (137-145)
[2022-12-03] MEDS: PANTOPRAZOLE 40 MG TABLET PO (08:36)
[2022-12-03] MEDS: SERTRALINE HCL 50 MG TABLET PO (08:36)
[2022-12-03] MEDS: ASPIRIN 325 MG ENTERIC TABLET PO (08:36)
--- NOTE | 2022-12-03 08:54 | PM.CNCAR ---
Assessment and Plan Assessment and plan (1) NSTEMI (non-ST elevated myocardial infarction): Code(s): I21.4 - Non-ST elevation (NSTEMI) myocardial infarction <SHRUTHI Johns - Last Filed: 12/20/22 11:54> Status: Acute <SHRUTHI Johns - Last Filed: 12/20/22 11:54> Assessment and Plan: Interscapular and lower sternal chest tightness, hypotension, bradycardia, and frequent PVCs on admission. Has an elevated troponin 0.115 although the EKG is not much different from prior EKG. Patient appears to have had non-STEMI. On heparin drip and aspirin. Normal left ventricular function on recent echo. --cardiac catheterization today <Deepthi Kaiser MD - Last Filed: 12/03/22 18:49> (2) Coronary artery disease: Qualifiers: Associated angina: without angina Coronary Disease-Associated Artery/Lesion type: unspecified vessel or lesion type [place] vs. transplanted heart: [place] heart Qualified Code(s): I25.10 - Atherosclerotic heart disease of [place] coronary artery without angina pectoris <SHRUTHI Johns - Last Filed: 12/20/22 11:54> Code(s): I25.10 - Atherosclerotic heart disease of [place] coronary artery without angina pectoris <SHRUTHI Johns - Last Filed: 12/20/22 11:54> Status: Acute <SHRUTHI Johns - Last Filed: 12/20/22 11:54> Assessment and Plan: CAD, known chronic total occlusion of the RCA in 1915, some diagonal disease at that time. --continue aspirin statin therapy <Deepthi Kaiser MD - Last Filed: 12/03/22 18:49> (3) Aortic stenosis: Qualifiers: Cardiac valve disease etiology: etiology unspecified Qualified Code(s): I35.0 - Nonrheumatic aortic (valve) stenosis <SHRUTHI Johns - Last Filed: 12/20/22 11:54> Code(s): I35.0 - Nonrheumatic aortic (valve) stenosis <SHRUTHI Johns - Last Filed: 12/20/22 11:54> Status: Acute <SHRUTHI Johns - Last Filed: 12/20/22 11:54> Assessment and Plan: Aortic stenosis, KARMEN last admission showed aortic valve area 1.4 cm2. 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 --BLOOD PRESSURES SHOULD BE TAKEN IN THE LUE-- <Deepthi Kaiser MD - Last Filed: 12/03/22 18:49> (5) Near syncope: Code(s): R55 - Syncope and collapse <SHRUTHI Johns - Last Filed: 12/20/22 11:54> Status: Acute <SHRUTHI Johns - Last Filed: 12/20/22 11:54> Assessment and Plan: Near syncope at home; SBP in 70's on EMS arrival. REc'd IV fluids. <Deepthi Kaiser MD - Last Filed: 12/03/22 18:49> (6) Bradycardia: Code(s): R00.1 - Bradycardia, unspecified <SHRUTHI Johns - Last Filed: 12/20/22 11:54> Status: Acute <SHRUTHI Johns - Last Filed: 12/20/22 11:54> Assessment and Plan: HR in 50's on EMS arrival. NO bradycardia noted on floor. <Deepthi Kaiser MD - Last Filed: 12/03/22 18:49> (7) PVCs (premature ventricular contractions): Code(s): I49.3 - Ventricular premature depolarization <SHRUTHI Johns - Last Filed: 12/20/22 11:54> Status: Acute <SHRUTHI Johns - Last Filed: 12/20/22 11:54> Assessment and Plan: Occasional to frequent PVCs noted. <Deepthi Kaiser MD - Last Filed: 12/03/22 18:49> Assessment and Plan:
[2022-12-03] MEDS: PERFLUTREN LIPID MICROSPHERES 1.5 ML VIAL DILUTED TO 10 ML TOTAL VOLUME IV PUSH (09:20)
--- NOTE | 2022-12-03 09:57 | PM.IMPN ---
Progress Note: A&P Assessment and Plan (1) NSTEMI (non-ST elevated myocardial infarction): Code(s): I21.4 - Non-ST elevation (NSTEMI) myocardial infarction Status: Acute Assessment and Plan: Troponin rise on subsequent draw. Initiate heparin drip. Cardiology already consulted, appreciate assistance. Echocardiogram ordered. labor contract analyst 12/03 (2) Bradycardia: Code(s): R00.1 - Bradycardia, unspecified Status: Acute Assessment and Plan: Symptomatic bradycardia HR in 30s per EMS, improved with IV atropine x 1 dose. Appreciate cardiology consultation (3) Hypotension: Code(s): I95.9 - Hypotension, unspecified Status: Acute Assessment and Plan: Resolved, discontinue lisinopril (4) Nausea, vomiting and diarrhea: Code(s): R11.2 - Nausea with vomiting, unspecified; R19.7 - Diarrhea, unspecified Status: Acute Assessment and Plan: Likely secondary to recent dilation of Schatzki's ring, monitor, consider reconsulting GI (5) MING (acute kidney injury): Code(s): N17.9 - Acute kidney failure, unspecified Status: Acute Assessment and Plan: Resolved (6) Hyponatremia: Code(s): E87.1 - Hypo-osmolality and hyponatremia Status: Acute Assessment and Plan: Resolved Plan DVT prophylaxis with heparin GI prophylaxis with PPI Code status full code Subjective Date/time seen: 12/03/22 09:57 Interval history: 82-year-old female patient was just discharged from the hospital for a stay with nausea vomiting and syncope and currently being treated for hypotension and bradycardia. labor contract analyst 12/03. Review of Systems Review of Systems: laborer general Exam Narrative: laborer general Objective Data Vital Signs Vital Signs: Vital Signs - 24 hr 12/02/22 12:05 12/02/22 12:12 12/02/22 12:16 Temperature 97.8 F 97.6 F Pulse Rate 79 86 80 Respiratory Rate 18 14 18 Blood Pressure 98/70 L 98/70 L 117/60 Pulse Oximetry 96 100 99 Oxygen Delivery 12/02/22 13:01 12/02/22 13:19 12/02/22 13:30 Temperature Pulse Rate 97 74 Respiratory Rate 13 16 16 Blood Pressure 99/61 L 99/61 L 104/72 Pulse Oximetry 91 99 99 Oxygen Delivery 12/02/22 14:02 12/02/22 15:21 12/02/22 16:15 Temperature Pulse Rate 90 78 86 Respiratory Rate 18 18 29 H Blood Pressure 119/50 L 108/62 115/54 L Pulse Oximetry 97 98 Oxygen Delivery 12/02/22 17:16 12/02/22 17:00 12/02/22 18:07 Temperature Pulse Rate 66 72 64 Respiratory Rate 19 20 Blood Pressure 109/55 L Pulse Oximetry 98 100 Oxygen Delivery 12/02/22 18:13 12/02/22 20:00 12/02/22 23:48 Temperature 96.6 F L 97.7 F 97.3 F L Pulse Rate 66 78 68 Respiratory Rate 18 20 20 Blood Pressure 126/64 90/49 L 100/43 L Pulse Oximetry 99 98 97 Oxygen Delivery 12/02/22 20:00 12/02/22 20:00 12/02/22 22:00 Temperature Pulse Rate 87 68 Respiratory Rate Blood Pressure Pulse Oximetry 98 Oxygen Delivery Room Air 12/03/22 00:00 12/03/22 00:00 12/03/22 02:00 Temperature Pulse Rate 70 65 Respiratory Rate Blood Pressure Pulse Oximetry 97 Oxygen Delivery Room Air 12/03/22 03:45 12/03/22 04:00 12/03/22 04:00 Temperature Pulse Rate 59 L 59 L Respiratory Rate 20 Blood Pressure 122/78 Pulse Oximetry 95 95 Oxygen Delivery Room Air 12/03/22 06:00 12/03/22 07:53 12/03/22 08:00 Temperature 97.4 F L Pulse Rate 63 65 Respiratory Rate 18 Blood Pressure 117/55 L Pulse Oximetry 97 97 Oxygen Delivery Room Air Intake/Output Intake/Output: Intake & Output 11/30/22 12/01/22 12/02/22 12/03/22 23:59 23:59 23:59 23:59 Intake Total 2000 550 Output Total 300 Balance 1700 550 Meds/Results Medications: Active Medications Generic Name Dose Route Start Last Admin Trade Name Freq PRN Reason Stop Dose Admin Acetaminophen 500 mg 12/02/22 20:31 Acetaminop
--- NOTE | 2022-12-03 11:19 | PC.NURSE ---
Pt to veterinary laboratory diagnostician via bed. Heparin drip paused by veterinary laboratory diagnostician RN
[2022-12-03 11:41] LABS: Partial Thromboplastin Time 59.4 SECONDS (22.3-36.8)
--- NOTE | 2022-12-03 12:37 | WPDHPUPDATE1 ---
History and Physical Update Update Date/Time: 12/03/22 12:37 History and Physical has been reviewed, including an updated exam of the patient. There are NO changes in the patient's condition. Risks, benefits, and alternatives have been discussed and questions answered. Patient agrees to proceed with procedure.
--- NOTE | 2022-12-03 12:37 | WPDMODSED ---
Moderate Sedation Note-Pt Data Patient Data Diagnosis: Unstable angina Present Complaint: CP Procedure to be performed/Plan: onscious sedation Left heart cath Poss PCI Allergies Allergy/AdvReac Type Severity Reaction Status Date / Time No Known Allergies Allergy Verified 11/27/22 11:23 Home Medications Medication Instructions Recorded Confirmed Type aspirin 325 mg tablet,delayed 325 mg PO DAILY 01/27/19 12/02/22 History release fluticasone propionate 50 1 spray intranasal DAILY PRN 01/27/19 12/02/22 History mcg/actuation nasal Allergy Symptoms spray,suspension nitroglycerin 0.2 mg/hr 1 patch transdermal DAILY 01/27/19 12/02/22 History transdermal 24 hour patch acetaminophen 500 mg tablet 500 mg PO Q6H PRN Breakthrough Pain 01/12/20 12/02/22 History cholecalciferol (vitamin D3) 1,250 1,250 mcg PO WEEKLY #8 caps 03/21/21 12/02/22 Rx mcg (50,000 unit) capsule sertraline 50 mg tablet 50 mg PO DAILY #90 tabs 01/30/22 12/02/22 Rx atorvastatin 40 mg tablet 80 mg PO QHS 10/10/22 12/02/22 History lisinopril 20 mg tablet 20 mg PO DAILY #90 tabs 11/05/22 12/02/22 Rx gabapentin 300 mg capsule 300 mg PO BID PRN pain 11/25/22 12/02/22 History pantoprazole 40 mg tablet,delayed 40 mg PO QAM 1 month #30 tabs 11/28/22 12/02/22 Rx release Current Medications: Active Medications Acetaminophen (Acetaminophen 500 Mg Tablet) 500 mg PO Q6H PRN PRN Reason: Breakthrough Pain Aspirin (Aspirin 325 Mg Enteric Tablet) 325 mg PO DAILY [facility] Last Admin: 12/03/22 08:36 Dose: 325 mg Atorvastatin Calcium (Atorvastatin 40 Mg Tablet) 80 mg PO QHS [facility] Last Admin: 12/02/22 22:45 Dose: 80 mg Ergocalciferol (Ergocalciferol 50,000 Units Capsule) 50,000 units PO Tu@0900 [facility] Fluticasone Propionate (Fluticasone Propionate 0.05% Na Spr 16 Gm Btl (*Bkc)) 1 spray NASAL DAILY PRN PRN Reason: Allergy Symptoms Gabapentin (Gabapentin 300 Mg Capsule) 300 mg PO BID PRN PRN Reason: NERVE PAIN Heparin Sodium (Porcine) (Heparin Sodium 5,000 Units/Ml Vial) 4,000 units IV PUSH PRN PRN PRN Reason: aPTT less than 55 seconds Heparin Sodium (Porcine) (Heparin Sodium 5,000 Units/Ml Vial) 2,500 units IV PUSH PRN PRN PRN Reason: aPTT 55 - 70 seconds Heparin Sodium/Dextrose (Heparin Sodium/D5w 100 Units/Ml) 25,000 units in 250 mls @ 0 mls/hr IV CONT .Q0M [facility]; Protocol Last Titration: 12/03/22 11:20 Dose: 0 units/hr, 0 mls/hr Nitroglycerin (Nitroglycerin 0.2 Mg/Hr Patch) 1 patch TRANSDERM DAILY [facility] Last Admin: 12/03/22 08:40 Dose: Not Given Ondansetron HCl (Ondansetron Inj 4 Mg/2 Ml Vial) 4 mg IV PUSH Q6H PRN PRN Reason: Nausea And Vomiting Pantoprazole Sodium (Pantoprazole 40 Mg Tablet) 40 mg PO QAM [facility] Last Admin: 12/03/22 08:36 Dose: 40 mg Sertraline HCl (Sertraline Hcl 50 Mg Tablet) 50 mg PO DAILY [facility] Last Admin: 12/03/22 08:36 Dose: 50 mg Sedation/Anesthesia: No previous sedation/anesthesia problems (including family history). [facility] Past Medical History Medical History Arthritis Cerebrovascular accident Chronic headaches Coronary artery disease Depression Hemorrhoids Hyperlipidemia Hypertension Memory loss Osteoarthritis Shingles Tuberculosis Wears glasses Surgical History Surgical History History of coronary angioplasty History of coronary artery stent placement History of hernia repair History of hysterectomy Family History Family History Father Family history of cardiovascular disease Sibling Family history of cardiovascular disease Hypoglycemia Lung disease Mother Family history of lung disease Other Arthritis Cancer Social History Social History Social History: Surrogate medical decision maker: Sharee Chawla, daughter. Code status: Full code. Smo
--- NOTE | 2022-12-03 12:41 | PM.OP ---
Procedure Note - Brief Procedure Note - Brief Date of procedure: 12/03/22 Hypotension, NSTEMI Post-op diagnosis: Other (CAD with left main dz) Surgeon: Deepthi Kaiser MD Description of procedure: Left heart catheterization: Unable to advance to the aorta on the right side; angiography shows an obstruction to flow In the upper iliac area.. Access via the left femoral artery. Angiography shows left main stenosis of greater than 50%. Tight diagonal stenosis and Chronically occluded RCA which fills via collaterals. atherosclerotic disease of the aorta will discuss with patient and recommend transfer for consideration of CABG. Estimated blood loss (mL): 15 Urine output (mL): 300 Complications: No immediate complications Condition: Stable Disposition: Floor
--- NOTE | 2022-12-03 12:44 | WPDCARDPROC ---
Cardiac Cath Procedure Note Date of procedure:: 12/03/22 Performing physician:: Deepthi Kaiser MD Indication:: NSTEMI, ACS Brief clinical history:: 82-year-old female with diffuse vascular disease and known chronic total occlusion RCA on last catheterization several years ago. Admitted with with a non-STEMI manifest as chest tightness, intrascapular discomfort, near syncope, hypotension and mild bradycardia. Troponins of increased to 0.115. EKG shows chronic lateral ST and T changes. Diffuse vascular disease. History of aorto bi-iliac bypass and other vascular disease. Has tight stenosis of the right innominate. Angel's test on the left was poor. Procedure Procedure performed:: Procedure: 1. Conscious sedation 2. Left heart catheterization 3. Selective Coronary angiography 4. Left ventriculography Sedation/Medication given:: Conscious sedation: The patient has no known prior history of adverse affects of conscious sedation. Oropharynx was clear. The patient is deemed a good candidate for conscious sedation. Conscious sedation began at: 1146 Conscious sedation ended at: 12 30 Total conscious sedation time: 44 minutes Medications: Versed 1 mg, fentanyl 50 mcg IV push The patient had continuous hemodynamic monitoring, and was also continuously monitored by: The patient tolerated conscious sedation well. Access site:: Site: Right femoral artery , left femoral artery Estimated blood loss:: 15 cc's Procedure note:: Catheters: 5 Kinyarwanda arterial sheath, 5 Kinyarwanda 4 cm right and left Arsenio catheters, Detailed procedure: After informed consent the patient brought to the label paster and the right and left femoral areas were prepped and draped in the usual fashion. After conscious sedation and local anesthesia the right femoral artery was punctured and cannulated with the arterial sheath. I was unable to advance the wire beyond the iliac, and angiography of the right iliac artery revealed a tight stenosis near the origin from the aorta (no contrast reflux was seen at all into the aorta). The left femoral area was infiltrated with and lidocaine and punctured and cannulated with the arterial sheath. There was some tortuosity but I was able to manipulate the right Arsenio catheter into the central circulation. Selective Coronary angiography was performed with the coronary catheters in multiple projections. These were withdrawn over a long wire to avoid much manipulation in the diseased aorta. Later the arterial sheaths were removed and hemostasis was obtained using local pressure. The patient tolerated the procedure well with no complications. Findings:: Pressures: Pre angiographic aortic pressure was 161/77 and post was 166/80 mmHg. Left coronary artery: The left main has a proximal stenosis which is at least 50% and other views suggest more significant stenosis.. The Left anterior descending is widely patent. The 1st diagonal has a stenosis of approximately 70%. The circumflex is widely patent but the 1st obtuse marginal has a ostial stenosis of about 70%. There are collaterals going to the right coronary artery. The aorta appeared to be heavily diseased and calcified. Right coronary artery: The right coronary artery is occluded proximally. As mention, collaterals from the left supply the RCA. Conclusion:: Left main stenosis of at least 50%. 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 Heavily diseased aorta Assessment and Plan Assessment and plan (1) NSTEMI (non-ST elevated myocardial infarction): Code(s): I21.4 - Non-ST elevation (NSTEMI) myocardial infarction Status: Acute Plan Recommend transfer to [facility] for cardiothoracic surgery consultation for CABG in possible aortic valve replacement.
[2022-12-03] MEDS: ACETAMINOPHEN 500 MG TABLET PO (12:54)
[2022-12-03] MEDS: fentaNYL CITRATE INJ (*CRX) 100 MCG/2 ML VIAL 25 MCG IV PUSH (13:10)
--- NOTE | 2022-12-03 15:16 | PC.NURSE ---
Addendum entered by Janey García RN 12/03/22 15:40: After processing the transfer, computer lab assistant RN called back to this RN with clarification on when to start the heparin drip. Heparin drip will be resumed at 800 units/hr [place] [address] Kaiser's order Original Note: Pt returned to room via bed from labeling associate. No issues noted. Heparin gtt resumed at 900 units with a 2500 unit bolus given per titration protocol and verbal order from Kaylan Hager NP
[2022-12-03] MEDS: SODIUM CHLORIDE 0.9% IV 1,000 ML 125 ML IV CONT (15:25)
[2022-12-03] MEDS: ERGOCALCIFEROL 50,000 UNITS CAPSULE 50000 UNITS PO (16:07)
[2022-12-03] MEDS: HYDROcodone/acetaminophen (*CRX) 5-325 MG TABLET 2 TAB PO (17:07)
--- NOTE | 2022-12-03 17:44 | ECG_ITS ---
Measurements Intervals [place] Rate: 84 P: 69 MD: 192 QRS: 62 QRSD: 105 T: 134 QT: 395 QTc: 467 Interpretive Statements SINUS RHYTHM POSSIBLE INFERIOR MYOCARDIAL INFARCTION [30 ms Q WAVE IN II/aVF], PROBABLY OLD MODERATE T-WAVE ABNORMALITY, CONSIDER ANTEROLATERAL ISCHEMIA [-0.1+ mV T WAVE IN V3-V6] WARNING: DATA QUALITY MAY AFFECT INTERPRETATION COMPARED TO ECG 12/02/2022 12:43:49 INCREASED INFERIOR ISCHEMIC CHANGES Electronically Signed On 12-04-2022 11:17:39 CDT by Deepthi Kaiser M.D.
--- NOTE | 2022-12-03 18:01 | PC.NURSE ---
1700: Pt complaining of left mid to upper back pain radiating down her left arm. Pt given PRN [place]. 173: Pt called out with severe pain again, only temporary relieved by the [place]. 12 lead EKG obtained and showed to Hauling Contractor. New orders entered. Pt accepted to [facility] for CABG. Awaiting transportation.
[2022-12-03] MEDS: METOPROLOL TARTRATE INJ 5 MG/5 ML VIAL IV PUSH (18:07)
[2022-12-03] MEDS: NITROGLYCERIN SL 0.4 MG TABLET SUBLINGUAL ×2 (18:16→18:21)
[2022-12-03] MEDS: MORPHINE SULFATE (*CRX) 2 MG/ML INJ IV PUSH (18:23)
--- NOTE | 2022-12-03 19:17 | PC.NURSE ---
1806: Report called to RAY Denton at [facility]. 1907: RAY Denton updated on medications that were given per Transit Planning Director's order (see MAR from [id number]). Heparin drip resumed at 800 units/hr per order, and sent with patient in ambulance.
--- NOTE | 2022-12-10 14:19 | IVDEFINITY ---
Prior to administration of IV Definity the patient was educated on the risks and benefits of the imaging enhancing agent including potential adverse side effects. The patient verbalized understanding. Allergies were verified. No exclusion criteria were identified and at least one of the following inclusion criteria were met: 1) physician request, 2) patient technically difficult to image (per the [place] [employer]chocardi[employer] guidelines of two or more segments not discernable within the apical view), or 3) questionable left ventricular function. ?
--- NOTE | 2022-12-12 08:53 | PM.TDS ---
Transfer Discharge Sum: Prov Provider Date of admission: 12/03/22 09:43 Primary care physician: Dann Allen DO Admitting clinician: Rose Bustos DO Consults: 12/02/22 16:21 Consult to Physician Routine Comment: Consulting Provider: Uriel Merino behavior management specialist/MD group to consult: Anna Reason for consultation: hypotension w/ bradycardia Has provider been notified: Yes DS: Admitting Diagnosis Discharge Date 12/03/22 Admitting Diagnosis chest pain DS: Discharge Diagnosis Discharge Diagnosis (1) NSTEMI (non-ST elevated myocardial infarction): Code(s): I21.4 - Non-ST elevation (NSTEMI) myocardial infarction Status: Acute Assessment and Plan: Troponin rise on subsequent draw. Initiate heparin drip. Cardiology already consulted, appreciate assistance. Echocardiogram ordered. ballistics laboratory gunsmith 12/03 (2) Bradycardia: Code(s): R00.1 - Bradycardia, unspecified Status: Acute Assessment and Plan: Symptomatic bradycardia HR in 30s per EMS, improved with IV atropine x 1 dose. Appreciate cardiology consultation (3) Hypotension: Code(s): I95.9 - Hypotension, unspecified Status: Acute Assessment and Plan: Resolved, discontinue lisinopril (4) Nausea, vomiting and diarrhea: Code(s): R11.2 - Nausea with vomiting, unspecified; R19.7 - Diarrhea, unspecified Status: Acute Assessment and Plan: Likely secondary to recent dilation of Schatzki's ring, monitor, consider reconsulting GI (5) MING (acute kidney injury): Code(s): N17.9 - Acute kidney failure, unspecified Status: Acute Assessment and Plan: Resolved (6) Hyponatremia: Code(s): E87.1 - Hypo-osmolality and hyponatremia Status: Acute Assessment and Plan: Resolved Plan DVT prophylaxis with heparin GI prophylaxis with PPI Code status full code Transfer Discharge Sum: Med Medications Active and Home Medications: Home Medications aspirin 325 mg tablet,delayed release 325 mg PO DAILY 01/27/19 [History Confirmed 12/02/22] fluticasone propionate 50 mcg/actuation nasal spray,suspension 1 spray intranasal DAILY PRN Allergy Symptoms 01/27/19 [History Confirmed 12/02/22] nitroglycerin 0.2 mg/hr transdermal 24 hour patch 1 patch transdermal DAILY 01/27/19 [History Confirmed 12/02/22] acetaminophen 500 mg tablet 500 mg PO Q6H PRN Breakthrough Pain 01/12/20 [History Confirmed 12/02/22] cholecalciferol (vitamin D3) 1,250 mcg (50,000 unit) capsule 1,250 mcg PO WEEKLY #8 caps 03/21/21 [Rx Confirmed 12/02/22] sertraline 50 mg tablet 50 mg PO DAILY #90 tabs 01/30/22 [Rx Confirmed 12/02/22] atorvastatin 40 mg tablet 80 mg PO QHS 10/10/22 [History Confirmed 12/02/22] lisinopril 20 mg tablet 20 mg PO DAILY #90 tabs 11/05/22 [Rx Confirmed 12/02/22] gabapentin 300 mg capsule 300 mg PO BID PRN pain 11/25/22 [History Confirmed 12/02/22] pantoprazole 40 mg tablet,delayed release 40 mg PO QAM 1 month #30 tabs 11/28/22 [Rx Confirmed 12/02/22] Transfer Discharge Sum: Hosp Hospital Course Hospital course: 82-year-old female patient was just discharged from the hospital for a stay with nausea vomiting and syncope and currently being treated for hypotension and bradycardia. ballistics laboratory gunsmith 12/03. Cath report: Left main stenosis of at least 50%. 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 Heavily diseased aorta Cardiology recommends transfer to [facility] for cardiothoracic surgery consultation for CABG in possible aortic valve replacement. Transfer initiated and arranged 12/03. See above and cardio notes for details. Time Spent with Patient Time attestation: Total time spent providing and/or coordinating transfer services: Exam Narrative: unable to be examined day of transfer, in construction or leak gang laborer, see cardio exam
== END 2022-12-03 19:24 | disposition short-term general hospital (02) | DRG 281 ==
LOC: ANHED 13:22 → ANHIMU 17:20
PROVIDERS: Emergency Medicine; Internal Medicine; Internal Medicine Cardiovascular Disease; Nurse Practitioner; Admitting Provider Student in an Organized Health Care Education/Training Program; Emergency Provider Emergency Medicine; PCP Internal Medicine; Visit Provider Student in an Organized Health Care Education/Training Program
PROC: 4A023N7 Measurement of Cardiac Sampling and Pressure, Left Heart, Percutaneous Approach (ICD-10-PCS; CPT 93452; principal; 2022-12-03 11:30)
PROC: 4A023N7 Measurement of Cardiac Sampling and Pressure, Left Heart, Percutaneous Approach (ICD-10-PCS; CPT 36140; 2022-12-03 11:30)
DX: I21.4 Non-ST elevation (NSTEMI) myocardial infarction (principal); E87.1 Hypo-osmolality and hyponatremia; N17.9 Acute kidney failure, unspecified; I25.10 Atherosclerotic heart disease of native coronary artery without angina pectoris; I35.0 Nonrheumatic aortic (valve) stenosis; I70.0 Atherosclerosis of aorta; K21.9 Gastro-esophageal reflux disease without esophagitis; M19.90 Unspecified osteoarthritis, unspecified site; E78.5 Hyperlipidemia, unspecified; I10 Essential (primary) hypertension; I95.9 Hypotension, unspecified; I73.9 Peripheral vascular disease, unspecified; E86.0 Dehydration; R00.1 Bradycardia, unspecified; Z86.11 Personal history of tuberculosis; Z79.82 Long term (current) use of aspirin; Z86.73 Personal history of transient ischemic attack (TIA), and cerebral infarction without residual deficits; Z95.5 Presence of coronary angioplasty implant and graft; Z90.710 Acquired absence of both cervix and uterus
CPT/HCPCS: 36140; 36415; 71045; 74177; 80053; 81001; 83605; 83690; 84484; 85025; 85610; 85730; 93005; 93458; 96361; 96374; 99285; A9270; C1769; C1887; C1894; C8929; G0378; J0461; J1644; J2250; J2270; J3010; J7030; J7040; Q9957; Q9967

== ENCOUNTER 2023-02-05 13:51 | Inpatient (IN) | payer MEDICARE, MEDICAID, SELFPAY ==
[2023-02-05] VITALS (24 sets, daily range): BP systolic 120–187; BP diastolic 37–71; PULSE 69–85; RESP 13–25; TEMP 36.2–36.4; O2SAT 96–100
--- NOTE | ~2023-02-05 | CT_ITS ---
EXAMINATION: CT diagnostic chest w con DATE: 02/08/2023 14:16 INDICATION: Cough TECHNIQUE: Computed tomography (CT) of the chest was performed with 100 mL Omnipaque-350 intravenous contrast. Automated exposure control and iterative reconstruction technique were employed. The dose-l ength product was 301.63 mGy-cm. COMPARISON: CTA cap 11/28/2022. FINDINGS: CHEST: Thoracic aorta: Moderate atherosclerotic calcification. No dissection or aneurysm. Severe innominate artery stenosis. Lung parenchyma and airways: Emphysematous change. Scattered areas of scar/atelectasis. Thoracic inlet, axillae and chest wall: No thyroid or soft tissue mass. No axillary lymphadenopathy. Status post CABG. Mediastinum: No mass or lymphadenopathy. Granulomatous calcification. Heart and pericardium: Aortic valve calcification. Coronary artery calcifications: Moderate. Pleura: No effusion or mass. Upper abdomen: No significant finding. Thoracic bones: No acute osseous finding in the chest. IMPRESSION: No acute thoracic process detected. Reviewed, dictated and finalized at location K. ERIOLOGY PROFESSOR
--- NOTE | ~2023-02-05 | XR_ITS ---
EXAMINATION: XR chest 2V Exam Date/Time: 02/05/2023 18:43 NET PROGRAMMER HISTORY: syncope Comparison: 12/02/2022. RESULT: Lines, tubes, and devices: Intact sternotomy wires and sternal screw and plate fixation. Mediastinal surgical clips. Lungs and pleura: Senescent change, otherwise clear. Cardiomediastinal silhouette: Stable. Other: No acute osseous or upper abdominal finding. IMPRESSION: No acute cardiopulmonary process. Reviewed, dictated and finalized at location K. PROGRAMMER
--- NOTE | 2023-02-05 16:22 | ECG_ITS ---
Measurements Intervals [place] Rate: 71 P: 63 ND: 182 QRS: 28 QRSD: 103 T: 142 QT: 384 QTc: 420 Interpretive Statements SINUS RHYTHM POSSIBLE LEFT ATRIAL ENLARGEMENT [-0.1mV P WAVE IN V1/V2] PROBABLE INFERIOR MYOCARDIAL INFARCTION , OF INDETERMINATE AGE [35 ms Q WAVE IN II/aVF] ST DEVIATION AND MODERATE T-WAVE ABNORMALITY, CONSIDER ANTEROLATERAL ISCHEMIA [-0.1+ mV T WAVE IN V3-V6] COMPARED TO ECG 12/03/2022 17:36:20 NO SIGNIFICANT CHANGES Electronically Signed On 02-05-2023 21:11:08 BEVELING AND EDGING MACHINE OPERATOR by Vijay Driver M.D.
[2023-02-05 16:48] LABS: Basophils Percent Auto 0.3 % (0.2-1.2); Eosinophils Percent Auto 0.3 % (0-4.4); Hematocrit 40.3 % (37.0-47.0); Hemoglobin 12.9 g/dL (12.0-15.0); Immature Granulocyte Absolute 0.04 K/mm3 (0.00-0.031); Immature Granulocyte Percent A 0.3 % (0-0.5); Lymphocytes Percent Auto 22.1 % (18.3-44.2); Mean Corpuscular Hemoglobin 28.6 pg (26-34); Mean Corpuscular Volume 89.4 fl (80-100); Mean Platelet Volume 9.2 fl (7.4-10.4); Monocytes Absolute Auto 0.6 K/mm3 (0.1-0.6); Monocytes Percent Auto 4.9 % (2.6-8.5); Neutrophils Absolute Auto 8.5 K/mm3 (1.3-6.7); Neutrophils Percent Auto 72.1 % (45.5-73.1); Platelet Count Result 402 k/mm3 (150-375); Red Blood Count 4.51 M/mm3 (4.2-5.4); Red Cell Distribution Width 14.8 % (11.5-14.5); White Blood Count 11.7 K/mm3 (4.5-10.0)
[2023-02-05 16:58] LABS: Alanine Aminotransferase 15 U/L (6-35); Alkaline Phosphatase 121 U/L (38-126); Anion Gap 6 mmol/L (8-16); Aspartate Amino Transferase 47 U/L (14-36); Bilirubin,Total 1.1 mg/dL (0.2-1.3); Blood Urea Nitrogen 14 mg/dL (7-17); Calcium 9.9 mg/dL (8.4-10.2); Carbon Dioxide 36 mmol/L (22-30); Chloride 92 mmol/L (98-107); Estimated CRCL calculation 46 ml/min; Estimated Glomerular Filt Rate > 60; Glucose 118 mg/dL (65-110); Potassium 2.9 mmol/L (3.4-5.0); Sodium 134 mmol/L (137-145)
[2023-02-05] MEDS: POTASSIUM CHLORIDE 20 MEQ ER TABLET 40 MEQ PO (17:31)
[2023-02-05 18:21] LABS: Appearance Urine Cloudy (Clear); Bacteria Urine 4+ /hpf; Bilirubin Urine Negative (Negative); Blood Urine Negative (Negative); Color Urine Dark Yellow (Yellow); Glucose Urine UA Negative (Negative); Ketones Urine Negative (Negative); Leukocyte Esterase Ur 2+ LEU/UL (Negative); Need Manual Microscopic Reviewed; Nitrate Urine Negative (Negative); Protein Urine Trace mg/dL (Negative); RBC Urine 0-2 /hpf (0-2); Specific Grav Ur 1.014 (1.001-1.035); Squamous Epithelial Cell Urine None seen /hpf (Few); Urobilinogen Urine 0.2 mg/dL (<2.0); WBC Urine >100 /hpf; pH Urine 7.5 (5.0-9.0)
[2023-02-05] MEDS: SODIUM CHLORIDE 0.9% IV 1,000 ML 999 ML IV CONT (18:33)
--- NOTE | 2023-02-05 18:35 | ED.SYNCOPE ---
HPI - Syncope General Chief Complaint: Syncope Stated Complaint: syncope Time Seen by Provider: 02/05/23 16:22 History of Present Illness HPI narrative: Patient is an 82-year-old female who presents ER with syncope she. She was sitting on her toilet trained and use the restroom when she lost consciousness. He has the ground by family member who is present. Family member reports patient became diaphoretic when this happened. Patient reports some mild chest pain has been intermittent since her CABG. No difficulty breathing. Reports decreased oral intake over last couple days. No urinary frequency urgency or dysuria. She has had no diarrhea. Patient does report chronic cough. Related Data Home Medications Medication Instructions Recorded Confirmed aspirin 325 mg tablet,delayed 325 mg PO DAILY 01/27/19 12/02/22 release fluticasone propionate 50 1 spray intranasal DAILY PRN 01/27/19 12/02/22 mcg/actuation nasal Allergy Symptoms spray,suspension nitroglycerin 0.2 mg/hr 1 patch transdermal DAILY 01/27/19 12/02/22 transdermal 24 hour patch acetaminophen 500 mg tablet 500 mg PO Q6H PRN Breakthrough Pain 01/12/20 12/02/22 gabapentin 300 mg capsule 300 mg PO BID PRN pain 11/25/22 12/02/22 Allergies Allergy/AdvReac Type Severity Reaction Status Date / Time No Known Allergies Allergy Verified 02/05/23 16:25 Review of Systems Review of Systems: All systems reviewed & are unremarkable except as noted in HPI and below Constitutional: Constitutional: Denies chills, Reports fatigue and Denies fever(s) ENT: Reports system reviewed and no additional complaints, except as documented Cardiovascular: Cardiovascular: Reports no additional cardiovascular complaints Respiratory: Respiratory: Reports cough, Denies dyspnea and Denies wheezing Gastrointestinal: Gastrointestinal: Reports no additional gastrointestinal complaints Genitourinary: Genitourinary: Reports no additional female genitourinary complaints Neurologic: Reports syncope, Denies headache(s), Denies focal weakness and Denies numbness PMFSH Past Medical History Medical History (Updated 02/05/23 @ 19:38 by Daryl Leon MD) Arthritis Cerebrovascular accident Chronic headaches Coronary artery disease Depression Hemorrhoids Hyperlipidemia Hypertension Memory loss Osteoarthritis Peripheral vascular disease Shingles Tuberculosis Wears glasses Surgical History Surgical History (Updated 12/06/22 @ 10:30 by Marisela M. Senci, PATIENT [facility]) History of coronary angioplasty History of coronary artery stent placement History of hernia repair History of hysterectomy 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 Code status: Full code. Smoking packs per day: 0.5 Smoking cigarettes per day: 10.0 Years smoked: 40 Smoking pack-years: 20.00 Smoking status: Never smoker Smoking end date: 11/24/93 Alcohol intake: never Drinks per week: 1 Substance use: never Substance use type: does not use Lack of Transportation: No Lack of Food: Never True Current Housing: I Have Housing Concerned About Future Housing: No Difficulty Paying Gas/Electric Bills: No Difficulty Paying for Meds: No Currently Unemployed: No Education: High School Diploma/GED Difficulty w/ Childcare or Family Care: No Occupation/Education: retired Spiritual care concerns: No Exam Narrative: GENERAL: Well-appearing, well-nourished, and in no acute distress. HEAD: Normocephalic, atraumatic. ENT: Dry mucous membranes.
[2023-02-05 18:56] LABS: Add Urine Microscopic? YES
[2023-02-05] MEDS: SODIUM CHLORIDE 0.9% IV 1,000 ML 125 ML IV CONT (19:46)
[2023-02-05 19:51] LABS: Influenza A QL RT-PCR Negative (Negative); Influenza B QL RT-PCR Negative (Negative); RSV RNA, RT-PCR Negative (Negative); SARS-CoV-2 RNA PCR Negative (Negative)
--- NOTE | 2023-02-05 19:55 | PM.IMHP ---
H&P: HPI History of Present Illness Date/Time: 02/05/23 19:55 Chief Complaint: 82F w/ PMH CVA, CAD s/p CABG, aortic stenosis, HTN, depression, HLD, PVD presents with syncope. The patient was sitting on the toilet at which point she was witness by daughter Sharee to be diaphoretic, clammy and syncope. The patient herself does not remember this, only waking up. The daughter lowered the patient to the ground, no blunt trauma experienced. The pt currently complains of feeling weak, a chronic dry cough since her CABG, and intermittent sharp mid chest and back discomfort since her CABG as well, but none now. In the ER she was found to have orthostatic blood pressure, given 1L NS, and found to have UTI for which she was given ceftriaxone for. She denies n/v/d, urinary symptoms, abdominal pain, shortness of breath. Admits to poor PO intake the past few days and feeling weak. Review of Systems Review of Systems: All systems reviewed & are unremarkable except as noted in HPI and below (HPI) [facility] Past Medical History Medical History (Updated 02/05/23 @ 19:38 by Daryl Leon MD) Arthritis Cerebrovascular accident Chronic headaches Coronary artery disease Depression Hemorrhoids Hyperlipidemia Hypertension Memory loss Osteoarthritis Peripheral vascular disease Shingles Tuberculosis Wears glasses Surgical History Surgical History (Updated 12/06/22 @ 10:30 by Marisela Dowell, [facility]) History of coronary angioplasty History of coronary artery stent placement History of hernia repair History of hysterectomy 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 Code status: Full code. Smoking packs per day: 0.5 Smoking cigarettes per day: 10.0 Years smoked: 40 Smoking pack-years: 20.00 Smoking status: Never smoker Smoking end date: 11/24/93 Alcohol intake: never Drinks per week: 1 Substance use: never Substance use type: does not use Lack of Transportation: No Lack of Food: Never True Current Housing: I Have Housing Concerned About Future Housing: No Difficulty Paying Gas/Electric Bills: No Difficulty Paying for Meds: No Currently Unemployed: No Education: High School Diploma/GED Difficulty w/ Childcare or Family Care: No Occupation/Education: retired Spiritual care concerns: No Meds Home Medications and Allergies Home Medications Medication Instructions Recorded Confirmed Type aspirin 325 mg tablet,delayed 325 mg PO DAILY 01/27/19 12/02/22 History release fluticasone propionate 50 1 spray intranasal DAILY PRN 01/27/19 12/02/22 History mcg/actuation nasal Allergy Symptoms spray,suspension nitroglycerin 0.2 mg/hr 1 patch transdermal DAILY 01/27/19 12/02/22 History transdermal 24 hour patch acetaminophen 500 mg tablet 500 mg PO Q6H PRN Breakthrough Pain 01/12/20 12/02/22 History cholecalciferol (vitamin D3) 1,250 1,250 mcg PO WEEKLY #8 caps 03/21/21 12/02/22 Rx mcg (50,000 unit) capsule lisinopril 20 mg tablet 20 mg PO DAILY #90 tabs 11/05/22 12/02/22 Rx gabapentin 300 mg capsule 300 mg PO BID PRN pain 11/25/22 12/02/22 History pantoprazole 40 mg tablet,delayed 40 mg PO QAM 1 month #30 tabs 11/28/22 12/02/22 Rx release sertraline 50 mg tablet 50 mg PO DAILY #90 tabs 01/17/23 Rx amlodipine 10 mg tablet 10 mg PO DAILY #30 tabs 01/30/23 Rx atorvastatin 40 mg tablet 80 mg PO QHS #30 tabs 01/30/23 Rx clopidogrel 75 mg tablet (Plavix) 75 mg PO DAILY #30 tabs 01/30/23 Rx hydralazine 25 mg tablet 25 mg PO TID #90 tabs 01/30/23 Rx metoprolol tar
[2023-02-05] MEDS: POTASSIUM CHLORIDE 20 MEQ ER TABLET PO (22:48)
[2023-02-06] VITALS (12 sets, daily range): BP systolic 109–199; BP diastolic 32–106; PULSE 68–93; RESP 18–24; TEMP 35.9–36.9; O2SAT 98–100; BMI 29.9
[2023-02-06] MEDS: SODIUM CHLORIDE 0.9% IV 1,000 ML 125 ML IV CONT (04:45)
[2023-02-06 06:42] LABS: Basophils Absolute Auto 0.1 K/mm3 (0.0-0.1); Basophils Percent Auto 0.8 % (0.2-1.2); Eosinophils Absolute Auto 0.1 K/mm3 (0-0.3); Eosinophils Percent Auto 1.5 % (0-4.4); Hematocrit 34.5 % (37.0-47.0); Hemoglobin 10.5 g/dL (12.0-15.0); Immature Granulocyte Absolute 0.01 K/mm3 (0.00-0.031); Immature Granulocyte Percent A 0.2 % (0-0.5); Lymphocytes Absolute Auto 2.11 K/mm3 (0.9-3.2); Lymphocytes Percent Auto 32.5 % (18.3-44.2); Mean Corpuscular HGB Conc 30.4 g/dl (32-36); Mean Corpuscular Hemoglobin 28.2 pg (26-34); Mean Corpuscular Volume 92.5 fl (80-100); Mean Platelet Volume 9.3 fl (7.4-10.4); Monocytes Absolute Auto 0.5 K/mm3 (0.1-0.6); Monocytes Percent Auto 7.5 % (2.6-8.5); Neutrophils Absolute Auto 3.7 K/mm3 (1.3-6.7); Neutrophils Percent Auto 57.5 % (45.5-73.1); Platelet Count Result 272 k/mm3 (150-375); Red Blood Count 3.73 M/mm3 (4.2-5.4); Red Cell Distribution Width 15.1 % (11.5-14.5); White Blood Count 6.5 K/mm3 (4.5-10.0)
[2023-02-06 07:05] LABS: Anion Gap 5 mmol/L (8-16); Blood Urea Nitrogen 11 mg/dL (7-17); Calcium 8.7 mg/dL (8.4-10.2); Carbon Dioxide 28 mmol/L (22-30); Chloride 103 mmol/L (98-107); Estimated CRCL calculation 52 ml/min; Estimated Glomerular Filt Rate > 60; Glucose 97 mg/dL (65-110); Magnesium 1.7 mg/dL (1.6-2.3); Potassium 2.7 mmol/L (3.4-5.0); Sodium 136 mmol/L (137-145)
--- NOTE | 2023-02-06 07:09 | PC.NURSE ---
Reported critical potassium of 2.[address] Duggan at this time. New orders received for potassium 40 meq PO once, potassium 40 meq IVPB once, magnesium 2 gm IVPB once.
[2023-02-06] MEDS: MAGNESIUM SULF 2 GM/WATER 50ML 2 GM/50 ML BAG IVPB (10:18)
[2023-02-06] MEDS: POTASSIUM CHLORIDE 20 MEQ ER TABLET 40 MEQ PO (10:18)
[2023-02-06] MEDS: ASPIRIN 81 MG ENTERIC TABLET PO (10:22)
[2023-02-06] MEDS: CLOPIDOGREL BISULFATE 75 MG TABLET PO (10:23)
--- NOTE | 2023-02-06 10:59 | PM.IMPN ---
Progress Note: A&P Assessment and Plan (1) Syncope: Code(s): R55 - Syncope and collapse Status: Acute (2) Orthostatic dizziness: Code(s): R42 - Dizziness and giddiness Status: Acute (3) Acute UTI: Code(s): N39.0 - Urinary tract infection, site not specified Status: Acute Plan 82F w/ PMH CVA, CAD s/p CABG, aortic stenosis, HTN, depression, HLD, PVD presents with syncope. The patient was sitting on the toilet at which point she was witness by daughter Sharee to be diaphoretic, clammy and syncope. The patient herself does not remember this, only waking up. The daughter lowered the patient to the ground, no blunt trauma experienced. The pt currently complains of feeling weak, a chronic dry cough since her CABG, and intermittent sharp mid chest and back discomfort since her CABG as well, but none now. In the ER she was found to have orthostatic blood pressure, given 1L NS, and found to have UTI for which she was given ceftriaxone for. She denies n/v/d, urinary symptoms, abdominal pain, shortness of breath. Admits to poor PO intake the past few days and feeling weak. The patient's syncope likely related to vasovagal or orthostatic hypotension. She received 1L NS in ER. we will continue NS @ 125ml/hr and check orthostatic blood pressures q shift. cont tele monitor. For UTI, continue ceftriaxone 1G qday and follow up cultures. Hypokalemia replace and monitor. Hypomagnesemia replace Continue aspirin and plavix considering her recent CABG. The patient wishes to be DNR to which the daughter Sharee agreed to. DNR. Javy with direct aortic valve planimetry showed very mild aortic valve stenosis 12/02 Subjective Date/time seen: 02/06/23 10:59 Interval history: Feels weak. History reviewed. Reports blood pressure fluctuates. Labs reviewed. Chest x-ray with no acute cardiopulmonary process. Review of Systems Review of Systems: All systems reviewed & are unremarkable except as noted in HPI and below (HPI) Exam Narrative: GENERAL: Well-appearing, well-nourished, and in no acute distress. HEAD: Normocephalic, atraumatic. ENT: ? Dry mucous membranes. NECK: Supple. CHEST: Clear to auscultation.? No respiratory distress. HEART: Regular rate and rhythm.? Normal peripheral pulses. ABDOMEN: Soft, nontender, nondistended. EXTREMITIES: Normal range of motion.? No edema. SKIN: Warm, dry, no rash. NEURO:? Alert and oriented x3. PSYCH: Normal mood and affect. Objective Data Vital Signs Vital Signs: Vital Signs - 24 hr 02/05/23 13:53 02/05/23 16:26 02/05/23 17:17 Temperature 97.2 F L Pulse Rate 69 73 70 Respiratory Rate 20 20 16 Blood Pressure 140/71 126/48 L Pulse Oximetry 98 97 98 Oxygen Delivery Room Air 02/05/23 17:39 02/05/23 17:40 02/05/23 18:27 Temperature Pulse Rate 73 77 71 Respiratory Rate Blood Pressure 133/65 146/68 H 133/54 L Pulse Oximetry Oxygen Delivery 02/05/23 18:28 02/05/23 18:28 02/05/23 18:28 Temperature Pulse Rate 76 76 78 Respiratory Rate 25 H Blood Pressure 153/60 H 153/60 H 120/37 L Pulse Oximetry 99 Oxygen Delivery 02/05/23 19:19 02/05/23 19:19 02/05/23 19:22 Temperature 97.6 F Pulse Rate 72 73 Respiratory Rate 13 Blood Pressure 160/56 H Pulse Oximetry 100 100 Oxygen Delivery Room Air 02/05/23 16:41 02/05/23 16:45 02/05/23 16:46 Temperature Pulse Rate 71 70 71 Respiratory Rate 15 16 Blood Pressure 126/48 L Pulse Oximetry 98 99 98 Oxygen Delivery 02/05/23 17:00 02/05/23 18:22 02/05/23 18:24 Temperature Pulse Rate 71 72 75 Respiratory Rate 14 14 Blood Pressure 133/54 L Pulse Oximetry 99 100 Oxygen Delivery 02/05/23 18:25 02/05/23 18:27 02/05/23 18:30 Temperature Pulse Rate 77 85 73 Respiratory Rate Blood Pressure 153/60 H 120/37 L Pulse Oximetry 100 96 97 Oxygen Delivery 02/05/23 19:18 02/05/23 19:20 02/05/23 19:34 Temperature Pulse Rate 71 73 74
[2023-02-06] MEDS: PANTOPRAZOLE 40 MG TABLET PO (14:21)
[2023-02-06] MEDS: VITAMIN B CMPLX/VIT C/FOLIC AC 1 CAPSULE 1 CAP PO (14:21)
[2023-02-06] MEDS: POTASSIUM CHLORIDE 20 MEQ PACKET (FOR LIQUID) 40 MEQ FEED TUBE (14:50)
[2023-02-06] MEDS: amLODIPine BESYLATE 5 MG TABLET PO (14:52)
--- NOTE | 2023-02-06 16:03 | PC.NURSE ---
Pt Mg ran first this AM. IV went bad. Started pt K rider. Pt became SOB. Called who ordered fluids to be stopped including K rider, supplemented with an additional 40 K PO to make up for stopping the K.
[2023-02-06] MEDS: METOPROLOL TARTRATE 25 MG TABLET PO (16:06)
[2023-02-06 17:33] LABS: Potassium 3.7 mmol/L (3.4-5.0)
[2023-02-06] MEDS: MIRTAZAPINE 15 MG TABLET 45 MG PO (21:00)
[2023-02-06] MEDS: ATORVASTATIN 40 MG TABLET 80 MG PO (21:00)
[2023-02-07] VITALS (11 sets, daily range): BP systolic 150–157; BP diastolic 56–69; PULSE 71–84; RESP 16–24; TEMP 36.3–36.8; O2SAT 98–100
[2023-02-07 06:52] LABS: Basophils Percent Auto 0.5 % (0.2-1.2); Eosinophils Absolute Auto 0.1 K/mm3 (0-0.3); Eosinophils Percent Auto 2.3 % (0-4.4); Hematocrit 35.8 % (37.0-47.0); Hemoglobin 10.9 g/dL (12.0-15.0); Immature Granulocyte Absolute 0.03 K/mm3 (0.00-0.031); Immature Granulocyte Percent A 0.5 % (0-0.5); Lymphocytes Absolute Auto 2.24 K/mm3 (0.9-3.2); Lymphocytes Percent Auto 39.1 % (18.3-44.2); Mean Corpuscular HGB Conc 30.4 g/dl (32-36); Mean Corpuscular Hemoglobin 28.5 pg (26-34); Mean Corpuscular Volume 93.5 fl (80-100); Mean Platelet Volume 9.6 fl (7.4-10.4); Monocytes Absolute Auto 0.5 K/mm3 (0.1-0.6); Neutrophils Absolute Auto 2.8 K/mm3 (1.3-6.7); Neutrophils Percent Auto 49.6 % (45.5-73.1); Platelet Count Result 297 k/mm3 (150-375); Red Blood Count 3.83 M/mm3 (4.2-5.4); Red Cell Distribution Width 15.2 % (11.5-14.5); White Blood Count 5.7 K/mm3 (4.5-10.0)
[2023-02-07 07:06] LABS: Alanine Aminotransferase 12 U/L (6-35); Alkaline Phosphatase 101 U/L (38-126); Anion Gap 8 mmol/L (8-16); Aspartate Amino Transferase 30 U/L (14-36); Bilirubin,Total 0.6 mg/dL (0.2-1.3); Blood Urea Nitrogen 7 mg/dL (7-17); Carbon Dioxide 28 mmol/L (22-30); Chloride 102 mmol/L (98-107); Estimated CRCL calculation 46 ml/min; Estimated Glomerular Filt Rate > 60; Glucose 104 mg/dL (65-110); Magnesium 1.9 mg/dL (1.6-2.3); Potassium 3.1 mmol/L (3.4-5.0); Sodium 138 mmol/L (137-145)
[2023-02-07] MEDS: POTASSIUM CHLORIDE 20 MEQ ER TABLET 40 MEQ PO (08:13)
[2023-02-07] MEDS: CLOPIDOGREL BISULFATE 75 MG TABLET PO (08:13)
[2023-02-07] MEDS: PANTOPRAZOLE 40 MG TABLET PO (08:13)
[2023-02-07] MEDS: amLODIPine BESYLATE 5 MG TABLET PO (08:13)
[2023-02-07] MEDS: METOPROLOL TARTRATE 25 MG TABLET PO ×2 (08:13→16:55)
[2023-02-07] MEDS: ASPIRIN 81 MG ENTERIC TABLET PO (08:13)
[2023-02-07] MEDS: VITAMIN B CMPLX/VIT C/FOLIC AC 1 CAPSULE 1 CAP PO (08:16)
[2023-02-07] MEDS: polyethylene glycoL 3350 17 GM POWD.PACK PO (08:17)
[2023-02-07] MEDS: DOCUSATE SODIUM 100 MG CAPSULE PO (08:17)
--- NOTE | 2023-02-07 14:58 | PM.IMPN ---
Progress Note: A&P Assessment and Plan (1) Syncope: Code(s): R55 - Syncope and collapse Status: Acute (2) Orthostatic dizziness: Code(s): R42 - Dizziness and giddiness Status: Acute (3) Acute UTI: Code(s): N39.0 - Urinary tract infection, site not specified Status: Acute Plan 82F w/ PMH CVA, CAD s/p CABG, aortic stenosis, HTN, depression, HLD, PVD presents with syncope. The patient was sitting on the toilet at which point she was witness by daughter Sharee to be diaphoretic, clammy and syncope. The patient herself does not remember this, only waking up. The daughter lowered the patient to the ground, no blunt trauma experienced. The pt currently complains of feeling weak, a chronic dry cough since her CABG, and intermittent sharp mid chest and back discomfort since her CABG as well, but none now. In the ER she was found to have orthostatic blood pressure, given 1L NS, and found to have UTI for which she was given ceftriaxone for. She denies n/v/d, urinary symptoms, abdominal pain, shortness of breath. Admits to poor PO intake the past few days and feeling weak. The patient's syncope likely related to vasovagal or orthostatic hypotension. She received 1L NS in ER. we will continue NS @ 125ml/hr and check orthostatic blood pressures q shift. cont tele monitor. For UTI, continue ceftriaxone 1G qday and follow up cultures. Urine culture growing Klebsiella variiciola await sensitivity. Hypokalemia replace and monitor. Hypomagnesemia replace Blood in stool: H&H remained stable. Will continue to monitor. Continue aspirin and plavix considering her recent CABG. The patient wishes to be DNR to which the daughter Sharee agreed to. DNR. Javy with direct aortic valve planimetry showed very mild aortic valve stenosis 12/02 Subjective Date/time seen: 02/07/23 14:58 Interval history: Notice some bright red blood in her stool yesterday. No further bleeding today. Feels tired no other symptoms. Work with therapy today. Review of Systems Review of Systems: All systems reviewed & are unremarkable except as noted in HPI and below (HPI) Exam Narrative: GENERAL: Well-appearing, well-nourished, and in no acute distress. HEAD: Normocephalic, atraumatic. ENT: ? Dry mucous membranes. NECK: Supple. CHEST: Clear to auscultation.? No respiratory distress. HEART: Regular rate and rhythm.? Normal peripheral pulses. ABDOMEN: Soft, nontender, nondistended. EXTREMITIES: Normal range of motion.? No edema. SKIN: Warm, dry, no rash. NEURO:? Alert and oriented x3. PSYCH: Normal mood and affect. Objective Data Vital Signs Vital Signs: Vital Signs - 24 hr 02/06/23 15:33 02/06/23 16:06 02/06/23 16:00 Temperature Pulse Rate 88 80 Respiratory Rate Blood Pressure Pulse Oximetry Oxygen Delivery Room Air 02/06/23 15:31 02/06/23 20:31 02/06/23 20:00 Temperature 97.7 F Pulse Rate 76 69 68 Respiratory Rate 18 Blood Pressure 110/46 L 128/32 L Pulse Oximetry 99 Oxygen Delivery 02/06/23 20:00 02/07/23 00:00 02/07/23 04:00 Temperature Pulse Rate 78 71 Respiratory Rate Blood Pressure Pulse Oximetry Oxygen Delivery Room Air 02/07/23 04:46 02/07/23 08:13 02/07/23 08:10 Temperature 98.2 F Pulse Rate 75 76 Respiratory Rate 18 Blood Pressure 152/56 H Pulse Oximetry 99 Oxygen Delivery Room Air Intake/Output Intake/Output: Intake & Output 02/04/23 02/05/23 02/06/23 02/07/23 23:59 23:59 23:59 23:59 Intake Total 1050 1950 0 Output Total 200 Balance 1050 1750 0 Meds/Results Medications: Active Medications Generic Name Dose Route Start Last Admin Trade Name Freq PRN Reason Stop Dose Admin Acetaminophen 650 mg 02/05/23 19:13 Acetaminophen 325 Mg Tablet PO Q4H PRN Mild Pain (1-3) or Fever Acetaminophen 500 mg 02/06/23 11:04 Acetaminophen 500 Mg Tablet PO Q6H PRN Breakthrough Pain Albutero
[2023-02-07] MEDS: CHOLECALCIFEROL 1,000 UNITS TABLET 2000 UNITS PO (15:14)
[2023-02-07] MEDS: MIRTAZAPINE 15 MG TABLET 45 MG PO (21:09)
[2023-02-07] MEDS: ATORVASTATIN 40 MG TABLET 80 MG PO (21:09)
[2023-02-08] VITALS (13 sets, daily range): BP systolic 137–190; BP diastolic 51–172; PULSE 58–94; RESP 18–30; TEMP 36.7–37.4; O2SAT 97–100
[2023-02-08 06:20] LABS: Basophils Absolute Auto 0.1 K/mm3 (0.0-0.1); Basophils Percent Auto 0.7 % (0.2-1.2); Eosinophils Absolute Auto 0.1 K/mm3 (0-0.3); Eosinophils Percent Auto 1.8 % (0-4.4); Hematocrit 37.3 % (37.0-47.0); Hemoglobin 11.7 g/dL (12.0-15.0); Immature Granulocyte Absolute 0.02 K/mm3 (0.00-0.031); Immature Granulocyte Percent A 0.3 % (0-0.5); Lymphocytes Absolute Auto 2.83 K/mm3 (0.9-3.2); Lymphocytes Percent Auto 40.1 % (18.3-44.2); Mean Corpuscular HGB Conc 31.4 g/dl (32-36); Mean Corpuscular Hemoglobin 28.7 pg (26-34); Mean Corpuscular Volume 91.6 fl (80-100); Mean Platelet Volume 9.4 fl (7.4-10.4); Monocytes Absolute Auto 0.5 K/mm3 (0.1-0.6); Monocytes Percent Auto 7.1 % (2.6-8.5); Neutrophils Absolute Auto 3.5 K/mm3 (1.3-6.7); Platelet Count Result 310 k/mm3 (150-375); Red Blood Count 4.07 M/mm3 (4.2-5.4); Red Cell Distribution Width 14.9 % (11.5-14.5); White Blood Count 7.1 K/mm3 (4.5-10.0)
[2023-02-08 06:34] LABS: Alanine Aminotransferase 13 U/L (6-35); Albumin Level 3.1 g/dL (3.5-5.1); Alkaline Phosphatase 96 U/L (38-126); Anion Gap 7 mmol/L (8-16); Aspartate Amino Transferase 28 U/L (14-36); Bilirubin,Total 0.7 mg/dL (0.2-1.3); Blood Urea Nitrogen 6 mg/dL (7-17); Calcium 9.4 mg/dL (8.4-10.2); Carbon Dioxide 29 mmol/L (22-30); Chloride 100 mmol/L (98-107); Estimated CRCL calculation 52 ml/min; Estimated Glomerular Filt Rate > 60; Glucose 99 mg/dL (65-110); Magnesium 1.7 mg/dL (1.6-2.3); Potassium 3.2 mmol/L (3.4-5.0); Sodium 136 mmol/L (137-145)
[2023-02-08] MEDS: POTASSIUM CHLORIDE 20 MEQ ER TABLET 40 MEQ PO (09:18)
[2023-02-08] MEDS: MAGNESIUM SULF 2 GM/WATER 50ML 2 GM/50 ML BAG IVPB (09:19)
[2023-02-08] MEDS: METOPROLOL TARTRATE 25 MG TABLET PO ×2 (09:20→17:47)
[2023-02-08] MEDS: amLODIPine BESYLATE 5 MG TABLET PO (09:22)
[2023-02-08] MEDS: ASPIRIN 81 MG ENTERIC TABLET PO (09:22)
[2023-02-08] MEDS: VITAMIN B CMPLX/VIT C/FOLIC AC 1 CAPSULE 1 CAP PO (09:23)
[2023-02-08] MEDS: CLOPIDOGREL BISULFATE 75 MG TABLET PO (09:23)
[2023-02-08] MEDS: polyethylene glycoL 3350 17 GM POWD.PACK PO (09:23)
[2023-02-08] MEDS: PANTOPRAZOLE 40 MG TABLET PO (09:23)
[2023-02-08] MEDS: DOCUSATE SODIUM 100 MG CAPSULE PO (09:23)
[2023-02-08] MEDS: CHOLECALCIFEROL 1,000 UNITS TABLET 2000 UNITS PO (09:23)
[2023-02-08 10:36] LABS: IFOB Positive Control Positive; Immunochemical Fecal Occult Bl Positive (N)
--- NOTE | 2023-02-08 12:56 | PM.IMPN ---
Progress Note: A&P Assessment and Plan (1) Syncope: Code(s): R55 - Syncope and collapse Status: Acute (2) Orthostatic dizziness: Code(s): R42 - Dizziness and giddiness Status: Acute (3) Acute UTI: Code(s): N39.0 - Urinary tract infection, site not specified Status: Acute Plan 82F w/ PMH CVA, CAD s/p CABG, aortic stenosis, HTN, depression, HLD, PVD presents with syncope. The patient was sitting on the toilet at which point she was witness by daughter Sharee to be diaphoretic, clammy and syncope. The patient herself does not remember this, only waking up. The daughter lowered the patient to the ground, no blunt trauma experienced. The pt currently complains of feeling weak, a chronic dry cough since her CABG, and intermittent sharp mid chest and back discomfort since her CABG as well, but none now. In the ER she was found to have orthostatic blood pressure, given 1L NS, and found to have UTI for which she was given ceftriaxone for. She denies n/v/d, urinary symptoms, abdominal pain, shortness of breath. Admits to poor PO intake the past few days and feeling weak. The patient's syncope likely related to vasovagal or orthostatic hypotension. She received 1L NS in ER. we will continue NS @ 125ml/hr and check orthostatic blood pressures q shift. cont tele monitor. For UTI, continue ceftriaxone 1G qday and follow up cultures. Urine culture growing Klebsiella variiciola sensitive to ceftriaxone. Will switch to oral Bactrim Hypokalemia replace and monitor. Hypomagnesemia replace Blood in stool: H&H remained stable. Will continue to monitor. Continue aspirin and plavix considering her recent CABG. The patient wishes to be DNR to which the daughter Sharee agreed to. DNR. Javy with direct aortic valve planimetry showed very mild aortic valve stenosis 12/02 Subjective Date/time seen: 02/08/23 12:56 Interval history: No overnight events. Feeling tired. No further blood in stool reported. Denies any dizziness or lightheadedness. Work with therapy and standby assistance needed Review of Systems Review of Systems: All systems reviewed & are unremarkable except as noted in HPI and below (HPI) Exam Narrative: GENERAL: Well-appearing, well-nourished, and in no acute distress. HEAD: Normocephalic, atraumatic. ENT: ? Dry mucous membranes. NECK: Supple. CHEST: Clear to auscultation.? No respiratory distress. HEART: Regular rate and rhythm.? Normal peripheral pulses. ABDOMEN: Soft, nontender, nondistended. EXTREMITIES: Normal range of motion.? No edema. SKIN: Warm, dry, no rash. NEURO:? Alert and oriented x3. PSYCH: Normal mood and affect. Objective Data Vital Signs Vital Signs: Vital Signs - 24 hr 02/07/23 14:00 02/07/23 16:00 02/07/23 16:55 Temperature 97.4 F L Pulse Rate 72 82 84 Respiratory Rate 24 H Blood Pressure 150/58 H Pulse Oximetry 100 Oxygen Delivery 02/07/23 20:36 02/07/23 20:00 02/07/23 20:00 Temperature 98 F Pulse Rate 78 76 Respiratory Rate 16 Blood Pressure 157/69 H Pulse Oximetry 98 Oxygen Delivery Room Air 02/08/23 00:00 02/08/23 04:00 02/08/23 04:31 Temperature 99.3 F Pulse Rate 73 75 75 Respiratory Rate 18 Blood Pressure 137/51 L Pulse Oximetry 97 Oxygen Delivery 02/08/23 09:20 Temperature Pulse Rate 80 Respiratory Rate Blood Pressure Pulse Oximetry Oxygen Delivery Intake/Output Intake/Output: Intake & Output 02/05/23 02/06/23 02/07/23 02/08/23 23:59 23:59 23:59 23:59 Intake Total 1050 1950 890 100 Output Total 200 Balance 1050 1750 890 100 Meds/Results Medications: Active Medications Generic Name Dose Route Start Last Admin Trade Name Freq PRN Reason Stop Dose Admin Acetaminophen 650 mg 02/05/23 19:13 Acetaminophen 325 Mg Tablet PO Q4H PRN Mild Pain (1-3) or Fever Acetaminophen 500 mg 02/06/23 11:04 Acetaminophen 500 Mg Tablet PO Q6H PRN Yanni
[2023-02-08] MEDS: FLUTICASONE PROPIONATE 0.05% NA SPR 16 GM BTL (*BKC) 1 SPRAY NASAL ×2 (17:47→20:47)
[2023-02-08] MEDS: SULFAMETHOXAZOLE/TRIMETHOPRIM 800/160 MG DS TABLET 1 TAB PO (20:47)
[2023-02-08] MEDS: MIRTAZAPINE 15 MG TABLET 45 MG PO (20:47)
[2023-02-08] MEDS: ATORVASTATIN 40 MG TABLET 80 MG PO (20:47)
[2023-02-09] VITALS: PULSE 70
[2023-02-09 04:00] VITALS: PULSE 68
[2023-02-09 06:00] VITALS: BP 186/55; PULSE 72; RESP 18; TEMP 37; O2SAT 97
[2023-02-09 06:28] LABS: Basophils Absolute Auto 0.1 K/mm3 (0.0-0.1); Basophils Percent Auto 0.7 % (0.2-1.2); Eosinophils Absolute Auto 0.2 K/mm3 (0-0.3); Eosinophils Percent Auto 2.1 % (0-4.4); Hematocrit 38.2 % (37.0-47.0); Hemoglobin 11.6 g/dL (12.0-15.0); Immature Granulocyte Absolute 0.02 K/mm3 (0.00-0.031); Immature Granulocyte Percent A 0.3 % (0-0.5); Lymphocytes Absolute Auto 2.65 K/mm3 (0.9-3.2); Lymphocytes Percent Auto 37.1 % (18.3-44.2); Mean Corpuscular HGB Conc 30.4 g/dl (32-36); Mean Corpuscular Hemoglobin 28.4 pg (26-34); Mean Corpuscular Volume 93.6 fl (80-100); Mean Platelet Volume 9.6 fl (7.4-10.4); Monocytes Absolute Auto 0.5 K/mm3 (0.1-0.6); Monocytes Percent Auto 7.4 % (2.6-8.5); Neutrophils Absolute Auto 3.7 K/mm3 (1.3-6.7); Neutrophils Percent Auto 52.4 % (45.5-73.1); Platelet Count Result 297 k/mm3 (150-375); Red Blood Count 4.08 M/mm3 (4.2-5.4); Red Cell Distribution Width 14.9 % (11.5-14.5); White Blood Count 7.1 K/mm3 (4.5-10.0)
[2023-02-09 06:40] LABS: Alanine Aminotransferase 11 U/L (6-35); Albumin Level 3.1 g/dL (3.5-5.1); Alkaline Phosphatase 93 U/L (38-126); Anion Gap 7 mmol/L (8-16); Aspartate Amino Transferase 27 U/L (14-36); Bilirubin,Total 0.6 mg/dL (0.2-1.3); Blood Urea Nitrogen 9 mg/dL (7-17); Calcium 9.2 mg/dL (8.4-10.2); Carbon Dioxide 30 mmol/L (22-30); Chloride 99 mmol/L (98-107); Estimated CRCL calculation 46 ml/min; Estimated Glomerular Filt Rate > 60; Glucose 111 mg/dL (65-110); Magnesium 1.9 mg/dL (1.6-2.3); Potassium 3.6 mmol/L (3.4-5.0); Sodium 136 mmol/L (137-145)
[2023-02-09 08:00] VITALS: PULSE 73
[2023-02-09] MEDS: CHOLECALCIFEROL 1,000 UNITS TABLET 2000 UNITS PO (08:04)
[2023-02-09] MEDS: VITAMIN B CMPLX/VIT C/FOLIC AC 1 CAPSULE 1 CAP PO (08:04)
[2023-02-09] MEDS: SULFAMETHOXAZOLE/TRIMETHOPRIM 800/160 MG DS TABLET 1 TAB PO (08:04)
[2023-02-09] MEDS: polyethylene glycoL 3350 17 GM POWD.PACK PO (08:04)
[2023-02-09 08:05] VITALS: PULSE 68
[2023-02-09] MEDS: DOCUSATE SODIUM 100 MG CAPSULE PO (08:05)
[2023-02-09] MEDS: ASPIRIN 81 MG ENTERIC TABLET PO (08:05)
[2023-02-09] MEDS: PANTOPRAZOLE 40 MG TABLET PO (08:05)
[2023-02-09] MEDS: CLOPIDOGREL BISULFATE 75 MG TABLET PO (08:05)
[2023-02-09] MEDS: METOPROLOL TARTRATE 25 MG TABLET PO (08:05)
[2023-02-09] MEDS: FLUTICASONE PROPIONATE 0.05% NA SPR 16 GM BTL (*BKC) 1 SPRAY NASAL (08:06)
[2023-02-09] MEDS: amLODIPine BESYLATE 5 MG TABLET PO (08:06)
[2023-02-09 12:00] VITALS: PULSE 84
--- NOTE | 2023-02-09 13:06 | PM.DS ---
DS: Admitting Diagnosis Discharge Date 02/09/2023 Admitting Diagnosis Syncopal episode DS: Discharge Diagnosis Discharge Diagnosis (1) Syncope: Code(s): R55 - Syncope and collapse Status: Acute (2) Orthostatic dizziness: Code(s): R42 - Dizziness and giddiness Status: Acute (3) Acute UTI: Code(s): N39.0 - Urinary tract infection, site not specified Status: Acute DS: Summary Hospital Course Hospital Course: 82F w/ PMH CVA, CAD s/p CABG, aortic stenosis, HTN, depression, HLD, PVD presents with syncope. The patient was sitting on the toilet at which point she was witness by daughter Sharee to be diaphoretic, clammy and syncope. The patient herself does not remember this, only waking up. The daughter lowered the patient to the ground, no blunt trauma experienced. The pt currently complains of feeling weak, a chronic dry cough since her CABG, and intermittent sharp mid chest and back discomfort since her CABG as well, but none now. In the ER she was found to have orthostatic blood pressure, given 1L NS, and found to have UTI for which she was given ceftriaxone for. She denies n/v/d, urinary symptoms, abdominal pain, shortness of breath. Admits to poor PO intake the past few days and feeling weak. The patient's syncope likely related to vasovagal or orthostatic hypotension. She received 1L NS in ER. Treated with IV fluid resuscitation and orthostatic blood pressure was monitored. She was also noted to have tract infection was treated with ceftriaxone. Urine culture growing Klebsiella variiciola sensitive to ceftriaxone.? Will switch to oral Bactrim and finished 7 days course ? Hypokalemia replace and monitor.? Hypomagnesemia replace Blood in stool:? H&H remained stable.? Will continue to monitor. Continue aspirin and plavix considering her recent CABG. The patient wishes to be DNR to which the daughter Sharee agreed to. DNR. Javy with direct aortic valve planimetry showed very mild aortic valve stenosis 12/02 Time Spent with Patient Time attestation: Total time spent providing and/or coordinating discharge services: 45 minutes Exam Narrative: GENERAL: Well-appearing, well-nourished, and in no acute distress. HEAD: Normocephalic, atraumatic. ENT: ? Dry mucous membranes. NECK: Supple. CHEST: Clear to auscultation.? No respiratory distress. HEART: Regular rate and rhythm.? Normal peripheral pulses. ABDOMEN: Soft, nontender, nondistended. EXTREMITIES: Normal range of motion.? No edema. SKIN: Warm, dry, no rash. NEURO:? Alert and oriented x3. PSYCH: Normal mood and affect. DS: Data Data Completed and Pending Labs on day of discharge: Labs from last 24 hours 02/09/23 05:56 WBC 7.1 RBC 4.08 L Hgb 11.6 L Hct 38.2 MCV 93.6 MCH 28.4 MCHC 30.4 L RDW 14.9 H Plt Count 297 MPV 9.6 Immature Gran % (Auto) 0.3 Neut % (Auto) 52.4 Lymph % (Auto) 37.1 [place] % (Auto) 7.4 Eos % (Auto) 2.1 Baso % (Auto) 0.7 Lymph # (Auto) 2.65 [place] # (Auto) 0.5 Eos # (Auto) 0.2 Baso # (Auto) 0.1 Abs Immat Gran (auto) 0.02 Absolute Neuts (auto) 3.7 Absolute Nucleated RBC 0.0 Nucleated RBC % 0.0 Sodium 136 L Potassium 3.6 Chloride 99 Carbon Dioxide 30 Anion Gap 7 L BUN 9 Creatinine 0.80 Estim Creat Clear Calc 46 Estimated GFR > 60 Glucose 111 H Calcium 9.2 Magnesium 1.9 Total Bilirubin 0.6 AST 27 ALT 11 Alkaline Phosphatase 93 Total Protein 6.0 L Albumin 3.1 L Imaging Radiologist's impression: ITS Impressions Chest X-Ray 02/05/23 19:01 IMPRESSION: No acute cardiopulmonary process. Chest CT 02/08/23 14:21 IMPRESSION: No acute thoracic process detected. Discharge Plan Discharge Attending physician on discharge: Won Duggan Discharging Clinician: Won Duggan Anticipated Discharge Date/Time: 02/09/23 13:00 Patient Disposition: Home Health Service Activity: as tolerated Diet: heart healthy Di
== END 2023-02-09 14:10 | disposition home health service (06) | DRG 312 ==
LOC: ANHED 18:40 → ANH3MEDSUR 20:08
PROVIDERS: Admitting Provider General Practice; Emergency Provider Emergency Medicine; PCP Internal Medicine; Visit Provider Internal Medicine
DX: I95.1 Orthostatic hypotension (principal); N39.0 Urinary tract infection, site not specified; K92.1 Melena; B96.1 Klebsiella pneumoniae [K. pneumoniae] as the cause of diseases classified elsewhere; E78.5 Hyperlipidemia, unspecified; E87.6 Hypokalemia; F32.A Depression, unspecified; I25.10 Atherosclerotic heart disease of native coronary artery without angina pectoris; I35.0 Nonrheumatic aortic (valve) stenosis; I10 Essential (primary) hypertension; I73.9 Peripheral vascular disease, unspecified; Z95.1 Presence of aortocoronary bypass graft; Z66 Do not resuscitate; Z79.82 Long term (current) use of aspirin; Z79.02 Long term (current) use of antithrombotics/antiplatelets; Z20.822 Contact with and (suspected) exposure to COVID-19; Z86.73 Personal history of transient ischemic attack (TIA), and cerebral infarction without residual deficits
CPT/HCPCS: 36415; 71046; 71260; 80048; 80053; 81001; 82274; 83735; 84132; 84484; 85025; 87077; 87086; 87186; 87637; 93005; 96361; 96365; 97116; 97161; 97165; 97530; 97535; 99285; A9270; G0378; J0696; J3475; J7030; Q9967

== ENCOUNTER 2023-02-20 14:18 | Outpatient (CLI) | payer MEDICARE, MEDICAID, SELFPAY ==
[2023-02-20 19:38] LABS: Anion Gap 10 mmol/L (8-16); Blood Urea Nitrogen 12 mg/dL (7-17); Carbon Dioxide 27 mmol/L (22-30); Chloride 102 mmol/L (98-107); Estimated Glomerular Filt Rate 53; Glucose 101 mg/dL (65-110); Potassium 3.3 mmol/L (3.4-5.0); Sodium 139 mmol/L (137-145)
== END 2023-02-20 14:19 | disposition home or self-care (01) ==
PROVIDERS: PCP Internal Medicine; Visit Provider Nurse Practitioner
DX: E87.6 Hypokalemia (principal)
CPT/HCPCS: 36415; 80048

== ENCOUNTER 2023-02-27 15:41 | Emergency (ER) | payer MEDICARE, MEDICAID, SELFPAY ==
--- NOTE | ~2023-02-27 | CT_ITS ---
EXAMINATION: CT facial & cervical spine wo DATE: 02/27/2023 16:47 INDICATION: Fall. Landed on face. TECHNIQUE: Computed tomography (CT) of the facial bones and maxillofacial region and cervical spine w as performed without intravenous contrast. Automated exposure control and iterative reconstruction te chnique were employed. Exam dose: 454.81 mGy-cm total exam DLP. COMPARISON: 11/11/2022 CT facial bones FINDINGS: Likely recent bilateral mildly displaced nasal bone fractures, not present on 11/11/2022. Definitively make sutures, orbital rims and sanchez, zygomatic arches, maxillary bones and pterygoid pl ates are intact, without fracture. Normal development and aeration of the paranasal sinuses without fluid levels or opacification. Normal alignment at the temporomandibular joints. No mandibular fracture is detected. C1 and C2 are normally aligned and the odontoid process is intact. No fracture or dislocation of the cervical spine, locked facet or prevertebral soft tissue swelling. Moderate degenerative disc disease at C3-4, C4-5 and moderately severe degenerative disease at C5-6 a nd C6-7. Minimal anterolisthesis at C7-T1. There is degenerative change at the apophyseal joints throughout the cervical spine, as well as the u ncovertebral joints. Incidentally noted is sternotomy. There is extensive thoracic aortic calcification IMPRESSION: Bilateral mildly displaced nasal bone fractures, new since 11/11/2022; no other facial fr acture Cervical spondylosis; no cervical spine fracture or dislocation or locked facet Reviewed, dictated and finalized at [facility]. Reviewed, dictated and finalized at location [facility]. R SECURITY ENGINEER IMPRESSION: Bilateral mildly displaced nasal bone fractures, new since 11/12/19 23; no other facial fracture Cervical spondylosis; no cervical spine fracture or dislocation or locked facet
--- NOTE | ~2023-02-27 | CT_ITS ---
EXAMINATION: CT brain wo con DATE: 02/27/2023 16:46 INDICATION: Fall. Landed on face. TECHNIQUE: Computed tomography (CT) of the head was performed without intravenous contrast. The mA wa s adjusted according to patient size. Iterative reconstruction technique was employed. Exam dose: 68 1.00 mGy-cm total exam DLP. COMPARISON: 11/25/2022 CT brain FINDINGS: Vertebral, basilar and particularly prominent bilateral carotid siphon and supraclinoid int ernal carotid artery calcifications. Old left parietal occipital infarct and right basal ganglia chronic lacunar infarct. Moderate cerebral and cerebellar volume loss. No intracranial mass lesion or hemorrhage or cerebrovascular accident, midline shift or mass effect i s detected. No subdural or epidural hematoma. Bilateral nasal bone fractures of uncertain age, likely a recent. No fracture or bone destruction of the cranial vault. The mastoid air cells and included paranasal sinuses are unremarkable. IMPRESSION: Bilateral nasal bone fractures Chronic left parietal occipital and right basal ganglia lacunar infarcts Reviewed, dictated and finalized at [facility]. Reviewed, dictated and finalized at [facility]. ON WEAVER
[2023-02-27 15:45] VITALS: BP 108/34; PULSE 54; RESP 12; TEMP 36.9; O2SAT 100
--- NOTE | 2023-02-27 16:04 | ECG_ITS ---
Measurements Intervals [employer] Rate: 72 P: 69 NC: 209 QRS: 69 QRSD: 96 T: 153 QT: 418 QTc: 457 Interpretive Statements SINUS RHYTHM WITH FIRST DEGREE AV BLOCK LEFT VENTRICULAR HYPERTROPHY AND ST-T CHANGE INFERIOR INFARCT, AGE INDETERMINATE ST-T WAVE ABNORMALITY IN HIGH LATERAL LEADS- CONSIDER ISCHEMIA ABNORMAL ECG COMPARED TO ECG 02/05/2023 16:33:33 LEFT VENTRICULAR HYPERTROPHY NOW PRESENT Electronically Signed On 02-27-2023 19:02:25 BUSINESS PROJECT ANALYST by Ifeanyi Meyer D.O.
[2023-02-27 16:15] VITALS: O2SAT 100
[2023-02-27 16:17] VITALS: BP 128/47; O2SAT 98
--- NOTE | 2023-02-27 16:20 | PC.NURSE ---
explained need for c-collar application. pt and daughter declined.
[2023-02-27 16:23] LABS: Basophils Absolute Auto 0.03 K/mm3 (0.00-0.10); Basophils Percent Auto 0.4 % (0.0-1.0); Eosinophils Absolute Auto 0.07 K/mm3 (0.02-0.50); Hematocrit 35.3 % (35.0-42.0); Immature Granulocyte Absolute 0.02 K/mm3 (0.00-0.00); Immature Granulocyte Percent A 0.3 % (0.0-0.0); Lymphocytes Percent Auto 30.6 % (18.0-42.0); Mean Corpuscular HGB Conc 31.2 g/dL (32.0-36.0); Mean Corpuscular Hemoglobin 28.3 pg (27.0-31.0); Mean Corpuscular Volume 90.7 fL (78.0-102.0); Mean Platelet Volume 9.2 fl (9.2-11.8); Monocytes Absolute Auto 0.42 K/mm3 (0.10-0.90); Monocytes Percent Auto 5.8 % (2.0-11.0); Neutrophils Absolute Auto 4.4 K/mm3 (1.7-7.2); Neutrophils Percent Auto 61.9 % (50.0-70.0); Platelet Count Result 270 K/mm3 (150-420); Red Blood Count 3.89 M/mm3 (4.20-5.40); Red Cell Distribution Width 14.7 % (11.6-14.4); White Blood Count 7.2 K/mm3 (4.8-10.8)
[2023-02-27 16:38] VITALS: O2SAT 100
[2023-02-27 16:38] LABS: Partial Thromboplastin Time 24.5 SEC (23.90-30.70); Prothrombin Time 10.8 Seconds (9.50-12.10)
[2023-02-27 16:45] VITALS: O2SAT 99
[2023-02-27 16:48] LABS: Alanine Aminotransferase 20 U/L (14-59); Albumin Level 2.5 g/dL (3.4-5.0); Alkaline Phosphatase 68 U/L (46-116); Anion Gap 9 mmol/L (8-16); Aspartate Amino Transferase 19 U/L (15-37); Bilirubin,Total 0.7 mg/dL (0.00-1.00); Blood Urea Nitrogen 10 mg/dL (7-18); Calcium 9.2 mg/dL (8.5-10.1); Carbon Dioxide 28 mmol/L (21-32); Chloride 102 mmol/L (98-108); Estimated CRCL calculation 35 ml/min; Estimated Glomerular Filt Rate 49; Glucose 127 mg/dL (70-99); Osmolality Calculated 289 mOsm/kg (285-295); Potassium 3.8 mmol/L (3.5-5.1); Sodium 139 mmol/L (136-145); Total Protein 6.5 g/dL (6.4-8.2)
[2023-02-27 17:00] VITALS: BP 124/51; PULSE 61; RESP 20; TEMP 36.9; O2SAT 100
--- NOTE | 2023-02-27 17:15 | ED.FALL ---
HPI - Fall General Chief Complaint: Fall Stated Complaint: fall injury Time Seen by Provider: 02/27/23 16:03 Source: patient and family Mode of arrival: wheelchair Limitations: no limitations History of Present Illness HPI Narrative: this is an 82-year-old female that presents to the ER after she sustained a fall approximately 3 to 4 days ago causing facial injury with hematomas around both eyes and a swollen tender bridge of her nose with some patient did have a loss of consciousness, currently patient is on Plavix with a history of CAD with CABG. There is currently no headache no blurry vision no bleeding from the ears or from the nostrils, patient is currently has no nausea or vomiting no chest pain no shortness breath no abdominal pain. complaint: fall Onset (ago): day(s) Fall from: standing Fall witnessed: no Place fall occurred: home Loss of consciousness: yes Prolonged down time: no Symptoms prior to fall: none Context: tripped/slipped Location of injury: head and face Related Data Home Medications Medication Instructions Recorded Confirmed acetaminophen 500 mg tablet 500 mg PO Q6H PRN Breakthrough Pain 01/12/20 02/27/23 albuterol sulfate 90 mcg/actuation 2 puff inhalation Q4H PRN SOB 02/05/23 02/27/23 aerosol inhaler cholecalciferol (vitamin D3) 1,250 2,000 unit PO DAILY 02/05/23 02/27/23 mcg (50,000 unit) capsule docusate sodium 100 mg capsule 100 mg PO DAILY 02/05/23 02/27/23 (Colace) polyethylene glycol 3350 17 gram 17 g PO DAILY 02/05/23 02/27/23 oral powder packet (Miralax) vitamin B complex and vitamin C 1 cap PO DAILY 02/05/23 02/27/23 no.20-folic acid 1 mg capsule Allergies Allergy/AdvReac Type Severity Reaction Status Date / Time No Known Allergies Allergy Verified 02/27/23 13:59 Review of Systems Review of Systems: All systems reviewed & are unremarkable except as noted in HPI and below PMFSH Past Medical History Medical History Arthritis Cerebrovascular accident Chronic headaches Coronary artery disease Depression Hemorrhoids Hyperlipidemia Hypertension Memory loss Osteoarthritis Peripheral vascular disease Shingles Tuberculosis Wears glasses Surgical History Surgical History History of coronary angioplasty History of coronary artery stent placement History of hernia repair History of hysterectomy 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 Code status: Full code. Caffeine-none Smoking packs per day: 0.5 Smoking cigarettes per day: 10.0 Years smoked: 40 Smoking pack-years: 20.00 Smoking status: Former smoker Tobacco type: cigarettes Smoking end date: 02/10/89 Alcohol intake: never Substance use: never Substance use type: does not use Do You Feel Safe in your Home?: Yes Lack of Transportation: No Lack of Food: Often True Current Housing: I Have Housing Concerned About Future Housing: No Difficulty Paying Gas/Electric Bills: No Difficulty Paying for Meds: No Currently Unemployed: No Education: High School Diploma/GED Difficulty w/ Childcare or Family Care: No Occupation/Education: retired Spiritual care concerns: No Exam Const: General: healthy appearing and no acute distress Nutritional Appearance: well nourished Limitations: no limitations HENMT: Head: hematoma Head images: 1. Hematoma around bilateral eyes and swollen bridge of her nose. Face/Nose/Sinus:
== END 2023-02-27 17:58 | disposition home or self-care (01) ==
PROVIDERS: Emergency Provider Emergency Medicine
DX: S02.2XXA Fracture of nasal bones, initial encounter for closed fracture (principal); I25.810 Atherosclerosis of coronary artery bypass graft(s) without angina pectoris; E78.5 Hyperlipidemia, unspecified; I10 Essential (primary) hypertension; Z79.899 Other long term (current) drug therapy; Z86.73 Personal history of transient ischemic attack (TIA), and cerebral infarction without residual deficits; Z87.891 Personal history of nicotine dependence; W19.XXXA Unspecified fall, initial encounter
CPT/HCPCS: 36415; 70450; 70486; 72125; 80053; 85025; 85610; 85730; 93005; 99284

== ENCOUNTER 2023-04-30 11:27 | Emergency (ER) | payer MEDICARE, MEDICAID, SELFPAY ==
--- NOTE | ~2023-04-30 | CT_ITS ---
CT head without contrast Indication: Status post fall COMPARISON: 02/27/2023 Technique: Serial scans were obtained through the brain without the administration of contrast. Dose reduction technique was used on this scan by utilizing automated exposure control and iterative recon struction technique. The dose-length product (DLP) was 605.33 mGy-cm. Findings: There is no evidence of intracranial hemorrhage, mass lesion, or acute infarct. The ventri cles and subarachnoid spaces are dilated, consistent with mild atrophy. Chronic left parietal infarct is unchanged. Chronic lacunar infarct of the right basal ganglia is unchanged. Low attenuation regio ns are seen within the periventricular white matter bilaterally, likely representing changes from chr onic microvascular ischemic disease. There is no evidence of edema, mass effect or midline shift. T he visualized paranasal sinuses and mastoid air cells are clear. Impression: No intracranial hemorrhage, mass, or acute infarct. Chronic infarcts, as above, unchanged. Atrophy and chronic white matter changes, as above. Reviewed, dictated and finalized at location . Impression: No intracranial hemorrhage, mass, or acute infarct. Chronic infarcts, as above, unchanged. Atrophy and chronic white matter changes, as above.
[2023-04-30 11:29] VITALS: BP 157/61; PULSE 71; RESP 19; TEMP 36.7
--- NOTE | 2023-04-30 11:41 | ED.EYEPROB ---
HPI - Eye Problem General Chief complaint: Eye Problems Stated complaint: LOST VISION R EYE Time Seen by Provider: 04/30/23 11:40 History of Present Illness HPI Narrative: 82-year-old female with a history of CVA, CAD status post CABG, hypertension, dyslipidemia, peripheral vascular disease, chronic headaches, recurrent syncopal spells presents to the ER with a 4 hour history of -- right eye vision loss. Patient does not have any eye pain or tearing. The patient has a history of macular degeneration in the left eye and cataract on the right eye. Patient had a fall 2 weeks ago and sustained a head injury. No loss of consciousness at that time. MD chief complaint: vision change ( Vision loss in the right eye.) Onset (ago): hour(s) ( 4 hours) Onset description: sudden Duration: constant Location: right eye Eye Symptoms: other ( vision loss) Associated symptoms: none Related Data Home Medications Medication Instructions Recorded Confirmed acetaminophen 500 mg tablet 500 mg PO Q6H PRN Breakthrough Pain 01/12/20 04/30/23 albuterol sulfate 90 mcg/actuation 2 puff inhalation Q4H PRN SOB 02/05/23 04/30/23 aerosol inhaler cholecalciferol (vitamin D3) 1,250 2,000 unit PO DAILY 02/05/23 04/30/23 mcg (50,000 unit) capsule docusate sodium 100 mg capsule 100 mg PO DAILY 02/05/23 04/30/23 (Colace) polyethylene glycol 3350 17 gram 17 g PO DAILY PRN Constipation 02/05/23 04/30/23 oral powder packet (Miralax) vitamin B complex and vitamin C 1 cap PO DAILY 02/05/23 04/30/23 no.20-folic acid 1 mg capsule potassium chloride 20 mEq 20 meq PO ONCE 04/30/23 04/30/23 tablet,extended release Allergies Allergy/AdvReac Type Severity Reaction Status Date / Time No Known Allergies Allergy Verified 03/24/23 14:25 Review of Systems Review of Systems: All systems reviewed & are unremarkable except as noted in HPI and below Constitutional: Constitutional: Reports as per HPI and Reports no additional constitutional complaints Eyes: Comments: acute vision loss since this morning-- Right eye ENT: Reports system reviewed and no additional complaints, except as documented and Reports as per HPI Cardiovascular: Cardiovascular: Reports as per HPI and Reports no additional cardiovascular complaints Respiratory: Respiratory: Reports no additional respiratory complaints Gastrointestinal: Gastrointestinal: Reports as per HPI and Reports no additional gastrointestinal complaints Genitourinary: Genitourinary: Reports no additional female genitourinary complaints and Reports as per HPI Integumentary/Breasts: Skin/Breast: Reports system reviewed and no additional complaints, except as docu and Reports as per HPI Neurologic: Reports system reviewed and no additional complaints, except as documented and Reports as per HPI Psychiatric: Psychiatric: Reports no additional psychiatric complaints and Reports as per HPI Endocrine: Endocrine: Reports no additional endocrine complaints and Reports as per HPI Hematologic/Lymphatic: Hematologic/Lymphatic: Reports no additional hematologic/lymphatic complaints and Reports as per HPI Allergic/Immunologic: Allergic/Immunologic: Reports no additional allergic/immunologic complaints and Reports as per HPI [facility] Past Medical History Medical History Arthritis Cerebrovascular accident Chronic headaches Coronary artery disease Depression Hemorrhoids Hyperlipidemia Hypertension Memory loss Osteoarthritis Peripheral vascular disease Shingles Tuberculosis Wears glasses Surgical History Surgical History History of coronary angioplasty History of coronary artery stent placement History of hernia repair History of hysterectomy S/P CABG x 3 12/05/22 Family History Family History Father Family history of cardiovascular
== END 2023-04-30 12:54 | disposition home or self-care (01) ==
PROVIDERS: Emergency Provider Internal Medicine Critical Care Medicine; PCP Internal Medicine
DX: H54.61 Unqualified visual loss, right eye, normal vision left eye (principal); I25.10 Atherosclerotic heart disease of native coronary artery without angina pectoris; I10 Essential (primary) hypertension; E78.5 Hyperlipidemia, unspecified; I73.9 Peripheral vascular disease, unspecified; Z86.73 Personal history of transient ischemic attack (TIA), and cerebral infarction without residual deficits; Z87.891 Personal history of nicotine dependence
CPT/HCPCS: 70450; 99284

== ENCOUNTER 2023-05-26 00:35 | Day surgery (SDC) | payer MEDICARE, MEDICAID, SELFPAY ==
[2023-05-23 14:22] VITALS: BMI 28.5
[2023-05-26 07:38] VITALS: BP 171/48; PULSE 58; RESP 12; TEMP 36.4; O2SAT 100; BMI 28.2
--- NOTE | 2023-05-26 08:48 | PM.IMHP ---
H&P: HPI History of Present Illness Date/Time: 05/26/23 08:48 Chief Complaint: Intermittent syncope Narrative: This is an 82-year-old woman who was admitted today as an outpatient for elective implantation of a loop recorder. She has a history of coronary artery disease with chronic total occlusion of the right coronary artery which was treated medically for some time. She then presented to this hospital in December of 2022 which was found to have significant progression of disease where she presented with chest pain and follow-up catheterization demonstrated significant left main stenosis as well. She was transferred to [place] where she underwent surgical revascularization receiving an MARLON graft to the LAD, a vein graft to the OM and a vein graft to the RPDA. She did very well following this she did have some postop atrial fibrillation which was treated with amiodarone for short period of time. When I saw the patient in follow-up in February of 2023 she was doing well for the most part but was reporting ongoing episodes of abrupt loss of consciousness without any warning or symptoms to suggest vasovagal event or other etiology. Because of these episodes of loop recorder implant was recommended. Review of Systems Constitutional: Constitutional: Reports no additional constitutional complaints Eyes: Eyes: Reports no additional eye complaints ENT: Reports system reviewed and no additional complaints, except as documented Cardiovascular: Cardiovascular: Reports as per HPI Respiratory: Respiratory: Reports no additional respiratory complaints Gastrointestinal: Gastrointestinal: Reports no additional gastrointestinal complaints Musculoskeletal: Musculoskeletal: Reports no additional musculoskeletal complaints Integumentary/Breasts: Skin/Breast: Reports system reviewed and no additional complaints, except as docu Neurologic: Reports as per HPI [facility] Past Medical History Medical History Arthritis Blindness of right eye Cerebrovascular accident Chronic headaches Coronary artery disease Depression Glaucoma Hemorrhoids Hyperlipidemia Hypertension Memory loss Osteoarthritis Peripheral vascular disease Shingles Tuberculosis Wears glasses Surgical History Surgical History History of coronary angioplasty History of coronary artery stent placement History of hernia repair History of hysterectomy 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 Code status: Full code. Caffeine-none Smoking packs per day: 0.5 Smoking cigarettes per day: 10.0 Years smoked: 40 Smoking pack-years: 20.00 Smoking status: Former smoker Tobacco type: cigarettes Smoking end date: 02/10/89 Alcohol intake: never Substance use: never Substance use type: does not use Do You Feel Safe in your Home?: Yes Lack of Transportation: No Lack of Food: Often True Current Housing: I Have Housing Concerned About Future Housing: No Difficulty Paying Gas/Electric Bills: No Difficulty Paying for Meds: No Currently Unemployed: No Education: High School Diploma/GED Difficulty w/ Childcare or Family Care: No Living arrangements: alone Occupation/Education: retired Spiritual care concerns: No Meds Home Medications and Allergies Home Medications Medication Instructions Recorded Confirmed Type acetaminophen 500 mg tablet 500 mg PO Q6H PRN Breakthrough Pain 01/12/20 05/26/23 [place]
[2023-05-26 09:01] VITALS: BP 162/55; PULSE 61; RESP 14; O2SAT 100
--- NOTE | 2023-05-26 09:21 | P.PCNCC_ITS ---
Cardiac Cath Procedure Note Date of procedure:: 05/26/23 Performing physician:: Rodney Guallpa MD Indication:: Recurrent syncope Brief clinical history:: This is an 82-year-old woman with coronary disease who previously has undergone surgical revascularization for left main and room right coronary artery disease. She has been in syncopal episodes which up to now have not been explained Procedure Procedure performed:: Implantation of loop recorder Sedation/Medication given:: No sedated Access site:: Left anterior chest wall Estimated blood loss:: None Procedure note:: Patient was brought to the cardiac catheterization lab in the postabsorptive state she was in the supine position and a quincy was made in the anterior chest wall in the 4th intercostal space. This region was then prepped and draped in a sterile fashion. 20 cc of 1% lidocaine were infiltrated in the region of the intended implant. The insertion kit was used the blade was used to create the stab puncture at the site of the implant the insertion tool was then used to created into surgeon tract inferior to the puncture and using insertion tool the Medtronic LINQ loop device was implanted uneventfully. Telemetry from the device demonstrates good sensing of 0.5 mV R-wave amplitude. Findings:: The patient received Medtronic LINQ loop recorder model LNQ11 serial number [id number]. Conclusion:: Uneventful implantation of Medtronic LINQ loop recorder for evaluation of syncopal events in this 82-year-old lady with previous coronary bypass surgery Rodney Guallpa MD [facility] Assessment and Plan Assessment and plan (1) Syncope: Qualifiers: Syncope type: unspecified Qualified Code(s): R55 - Syncope and collapse Code(s): R55 - Syncope and collapse Status: Acute
[2023-05-26 09:30] VITALS: BP 138/65; PULSE 61; RESP 15; O2SAT 99
== END 2023-05-26 09:59 | disposition home or self-care (01) ==
PROVIDERS: PCP Internal Medicine; Visit Provider Specialist
PROC: (CPT 33285; principal; 2023-05-26 08:30)
DX: R55 Syncope and collapse (principal); I25.10 Atherosclerotic heart disease of native coronary artery without angina pectoris; Z95.1 Presence of aortocoronary bypass graft; Z95.5 Presence of coronary angioplasty implant and graft
CPT/HCPCS: 33285; C1764

== ENCOUNTER 2023-07-29 14:30 | Outpatient (RCR) | payer MEDICARE, MEDICAID, SELFPAY ==
--- NOTE | 2023-06-03 14:32 | PTOPEVAL1 ---
Assessment and note entered by Charanjit Christianson, PT Evaluation Information Assessment Status Evaluation Diagnosis Weakness,Abnormal gait, Dizziness Onset November 2022 Subjective Information Reports that she had begun falling about 1 year ago. She has since fallen about 6-8 times in the last 6 months. She has dropped approximately 60 pounds. She had open heart surgery in November of 2022. She has not had any outpatient therapy since then and has been struggling. She has started to use a walker a little bit in the home and community for safety. She struggles to get out of bed in the morning. She is getting dizziness with position changes and occasionally gets nauseated as well. Denies pain but feels weak and has very low endurance. Feels she has no endurance. Reported Pain Level Pain Score 0: Self Report Assessment PT Clinical Summary Patient presents with significant weakness in charly legs greater on L side at this time. Poor vision requires assistance with steering of walker and long distance progression. Patient presents as a high fall risk at this time and will benefit from skilled therapy to address these deficits for improved safety and functional mobility in home and community. Plan of Care Interventions Gait Training,Manual Therapy,Neuro Re-education, Therapeutic Activities,Therapeutic Exercise PT Services Indicated Yes Treatment Frequency and 2x/week for 10 visits Duration These treatments will address the objective and functional deficits as defined above. The patient will be advanced safely and appropriately in order for the patient to progress towards his/her prior level of function. Additional exercises will be introduced and as well as a comprehensive home exercise program upon discharge, if needed, ?to ensure carryover of functional gains achieved in the clinic. This treatment plan has been reviewed and agreement upon by the patient.
--- NOTE | 2023-06-03 14:32 | OPREHPOC ---
Outpatient Therapy Plan of Care This is a Multidisciplinary Plan of Care that may contain components documented by all disciplines (PT, OT, and ST.) PT Problem 1 PT Problem #1 Knowledge Deficit PT Goal 1 Goal [place] with HEP Target Visit 4 PT Goal 1 Goal Patient will demonstrate ability to perform 300' with 2 minute walk test to improve gait speed and reduce fall risk Target Visit 10 PT Goal 2 Goal Patient will improve Tinetti score by 11 points to reduce fall risk Target Visit 10 PT Problem 3 PT Problem #3 Impaired Strength PT Goal 1 Goal Improve charly hip flexion strength to 4+/5 to improve foot clearance with gait Target Visit 10 PT Goal 2 Goal Improve charly hip abduction strength to 4/5 to improve lateral stability with gait and ADLs Target Visit 10
--- NOTE | 2023-06-23 12:29 | PCPTNOTE ---
Pt. called and cancelled due to illness.
--- NOTE | 2023-06-25 09:50 | PCPTNOTE ---
Patient cancelled, ill.
--- NOTE | 2023-06-30 14:06 | PCPTNOTE ---
Cancelled via voicemail, gave no reason.
--- NOTE | 2023-07-04 16:52 | OPREHPOC ---
Outpatient Therapy Plan of Care This is a Multidisciplinary Plan of Care that may contain components documented by all disciplines (PT, OT, and ST.) PT Problem 1 PT Problem #1 Knowledge Deficit PT Goal 1 Goal [place] with HEP Target Visit 4 Progress Met PT Goal 1 Goal Patient will demonstrate ability to perform 300' with 2 minute walk test to improve gait speed and reduce fall risk Target Visit 16 Progress Not Met PT Goal 2 Goal Patient will improve Tinetti score by 11 points to reduce fall risk Target Visit 16 Progress Not Met PT Problem 3 PT Problem #3 Impaired Strength PT Goal 1 Goal Improve charly hip flexion strength to 4+/5 to improve foot clearance with gait Target Visit 16 Progress Not Met PT Goal 2 Goal Improve chalry hip abduction strength to 4/5 to improve lateral stability with gait and ADLs Target Visit 16 Progress Not Met
--- NOTE | 2023-07-04 16:52 | PTOPPROG ---
Assessment and note entered by Charanjit Christianson, PT Evaluation Information Assessment Status Progress Diagnosis Weakness,Abnormal gait, Dizziness Onset November 2022 Subjective Information Patient reports that she did have a fall as recent as Friday. Over the past couple of weeks she has had a lot of difficulty with nausea and has not been eating well. She is unsure what is causing this but she was examined on Friday in the ER after her fall and reports that nothing was for certain. Reports that since starting therapy she feels she was getting a lot better but feels that the last couple of weeks she has seen regression in activity and tolerance. Assessment PT Clinical Summary Patient had been making excellent progress with activity over course of therapy. Over the past few weeks, patient attendance has been limited as she has encountered illness and decreased tolerance to activity. Patient objectively is near evaluation status at this time, but I am certain that if she were assessed 2 weeks ago prior to recent illness she would have seen progress. Overall she will benefit from continuation of therapy to address listed deficits and continue to improve safety and functional mobility. Plan of Care Interventions Gait Training,Manual Therapy,Neuro Re-education, Therapeutic Activities,Therapeutic Exercise PT Services Indicated Yes Treatment Frequency and 2x/week for 8 visits Duration These treatments will address the objective and functional deficits as defined above. The patient will be advanced safely and appropriately in order for the patient to progress towards his/her prior level of function. Additional exercises will be introduced and as well as a comprehensive home exercise program upon discharge, if needed, ?to ensure carryover of functional gains achieved in the clinic. This treatment plan has been reviewed and agreement upon by the patient.
--- NOTE | 2023-07-04 16:53 | OPREHPOC ---
Outpatient Therapy Plan of Care This is a Multidisciplinary Plan of Care that may contain components documented by all disciplines (PT, OT, and ST.) PT Problem 1 PT Problem #1 Knowledge Deficit PT Goal 1 Goal [place] with HEP Target Visit 4 Progress Met PT Goal 1 Goal Patient will demonstrate ability to perform 300' with 2 minute walk test to improve gait speed and reduce fall risk Target Visit 16 Progress Not Met PT Goal 2 Goal Patient will improve Tinetti score by 11 points to reduce fall risk Target Visit 16 Progress Not Met PT Problem 3 PT Problem #3 Impaired Strength PT Goal 1 Goal Improve charly hip flexion strength to 4+/5 to improve foot clearance with gait Target Visit 16 Progress Not Met PT Goal 2 Goal Improve charly hip abduction strength to 4/5 to improve lateral stability with gait and ADLs Target Visit 16 Progress Not Met
--- NOTE | 2023-09-12 10:28 | PTOPDC ---
Assessment and note entered by Charanjit Christianson, PT Evaluation Information Assessment Status Discharge - Pt Not Present Diagnosis Weakness,Abnormal gait, Dizziness Onset November 2022 Subjective Information Patient reports that she did have a fall as recent as Friday. Over the past couple of weeks she has had a lot of difficulty with nausea and has not been eating well. She is unsure what is causing this but she was examined on Friday in the ER after her fall and reports that nothing was for certain. Reports that since starting therapy she feels she was getting a lot better but feels that the last couple of weeks she has seen regression in activity and tolerance. Assessment PT Clinical Summary Patient was a No show for progress note. Call was left in patients voicemail to reschedule and no return call was received. Patient will be discharged from skilled therapy at this time. Plan of Care PT Services Indicated D/C
== END 2023-09-01 23:59 | disposition home or self-care (01) ==
LOC: ANHGOSHPT 14:30
PROVIDERS: PCP Internal Medicine; Visit Provider Internal Medicine
DX: R26.9 Unspecified abnormalities of gait and mobility (principal); R42 Dizziness and giddiness; M54.40 Lumbago with sciatica, unspecified side
CPT/HCPCS: 97110; 97112; 97116; 97161; 97530

== ENCOUNTER 2023-08-15 13:43 | Outpatient (CLI) | payer MEDICARE, MEDICAID, SELFPAY ==
--- NOTE | ~2023-08-15 | MM_ITS ---
EXAMINATION: MM screening [facility] BI w claudia HISTORY: Screening TECHNIQUE: Craniocaudal and mediolateral oblique 3-D tomosynthesis images were obtained and synthetic 2-D images were generated. CAD analysis was submitted and interpreted. COMPARISON: Comparison to multiple prior studies sequentially, with oldest reviewed study dated 10/25. BREAST PARENCHYMAL COMPOSITION: Not dense: There are scattered areas of fibroglandular density. FINDINGS: There is a cluster of calcifications in the upper central aspect of the left breast which h ave increased in number and density chronic inversion of the right nipple. No new masses, calcificati ons or architectural distortion in the right breast. IMPRESSION: 1. Developing cluster of left breast calcifications. 2. Magnification views are recommended. BI-RADS Category 0: Incomplete: Needs additional imaging evaluation. Reviewed, dictated and finalized at location B.
== END 2023-08-15 13:44 ==
PROVIDERS: PCP Internal Medicine; Visit Provider Internal Medicine
DX: Z12.31 Encounter for screening mammogram for malignant neoplasm of breast (principal); R92.8 Other abnormal and inconclusive findings on diagnostic imaging of breast
CPT/HCPCS: 77063; 77067

== ENCOUNTER 2023-10-20 17:51 | Inpatient (IN) | payer MEDICARE, MEDICAID, SELFPAY ==
[2023-10-20] VITALS (8 sets, daily range): BP systolic 107–211; BP diastolic 54–95; PULSE 65–80; RESP 15–22; TEMP 36.2–36.9; O2SAT 95–99; BMI 26.2
--- NOTE | ~2023-10-20 | XR_ITS ---
EXAMINATION: XR chest 1V portable Exam Date/Time: 10/20/2023 18:40 CDT HISTORY: AMS Comparison: 02/05/2023. RESULT: Lines, tubes, and devices: Intact sternotomy wires and sternal screw and plate fixation. Loop record er. Surgical clips over the mediastinum. Lungs and pleura: Senescent change, otherwise clear. Cardiomediastinal silhouette: Stable. Other: No acute osseous or upper abdominal finding. IMPRESSION: No acute cardiopulmonary process. Reviewed, dictated and finalized at location K.
--- NOTE | ~2023-10-20 | CT_ITS ---
EXAMINATION: CT brain wo con DATE: 10/20/2023 18:32 INDICATION: mental status [place] . TECHNIQUE: Computed tomography (CT) of the head was performed without intravenous contrast. The mA wa s adjusted according to patient size. Iterative reconstruction technique was employed. The dose-lengt h product was 605.33 mGy-cm. COMPARISON: None. FINDINGS: Left thalamic acute hemorrhage measuring up to 3.1 cm, causing local mass effect on the midbrain and right lateral ventricle. No intraventricular hemorrhage or extra-axial fluid collection. No hydrocephalus, mass, or herniation. No acute ischemic infarct. Unremarkable dural venous sinus attenuation. No acute osseous abnormality. Trace left mastoid fluid, the remaining aerated spaces are clear. Mild atrophy and chronic white matter change. Atherosclerotic intracranial calcification. Old right b eva ganglia lacunar infarcts. Left occipital/parietal encephalomalacia, presumably old infarct. IMPRESSION: Acute, 3.1 cm left thalamic hemorrhage, with mild local mass effect. Results reported telephonically to Dr. Leon by Dr. Mahan at 6:38 PM on 10/20/2023. Reviewed, dictated and finalized at location K. IMPRESSION: Acute, 3.1 cm left thalamic hemorrhage, with mild local mass effect. Results reported telephonically to Dr. Leon by Dr. Mahan at 6:38 PM on 2023.
--- NOTE | 2023-10-20 18:02 | ECG_ITS ---
Test Date: 2023-10-20 18:11:15 Measurements Intervals [place] Rate: 72 P: 69 SC: 178 QRS: 49 QRSD: 104 T: 135 QT: 443 QTc: 487 Interpretive Statements SINUS RHYTHM DELAYED PRECORDIAL R/S TRANSITION CONSIDER INFERIOR INFARCT, AGE INDETERMINATE ST DEVIATION AND MODERATE T-WAVE ABNORMALITY, CONSIDER ANTEROLAT/HIGH LAT ISCHEMIA BASELINE ARTIFACT- II, III, AVR, AVL, AVF, V1-V3 ABNORMAL ECG No previous ECG available for comparison Electronically Signed On 10-20-2023 20:13:20 CDT by Ifeanyi Meyer D.O.
--- NOTE | 2023-10-20 18:21 | ECG_ITS ---
Test Date: 2023-10-20 18:21:57 Measurements Intervals [place] Rate: 74 P: 46 VA: 148 QRS: 43 QRSD: 106 T: 117 QT: 445 QTc: 495 Interpretive Statements SINUS RHYTHM CONSIDER INFERIOR INFARCT, AGE INDETERMINATE ST-T WAVE ABNORMALITY IN ANTEROLAT/HIGH LAT LEADS- CONSIDER ISCHEMIA ABNORMAL ECG Compared to ECG 10/20/2023 18:11:15 No significant changes Electronically Signed On 10-21-2023 16:20:49 CDT by Ifeanyi Meyer D.O.
[2023-10-20 18:24] LABS: Basophils Percent Auto 0.4 % (0.2-1.2); Eosinophils Percent Auto 0.3 % (0-4.4); Hemoglobin 13.8 g/dL (12.0-15.0); Immature Granulocyte Absolute 0.01 K/mm3 (0.00-0.031); Immature Granulocyte Percent A 0.1 % (0-0.5); Lymphocytes Absolute Auto 1.66 K/mm3 (0.9-3.2); Lymphocytes Percent Auto 24.6 % (18.3-44.2); Mean Corpuscular HGB Conc 34.5 g/dl (32-36); Mean Corpuscular Volume 81.1 fl (80-100); Mean Platelet Volume 9.4 fl (7.4-10.4); Monocytes Absolute Auto 0.5 K/mm3 (0.1-0.6); Monocytes Percent Auto 6.7 % (2.6-8.5); Neutrophils Absolute Auto 4.6 K/mm3 (1.3-6.7); Neutrophils Percent Auto 67.9 % (45.5-73.1); Platelet Count Result 202 k/mm3 (150-375); Red Blood Count 4.93 M/mm3 (4.2-5.4); Red Cell Distribution Width 14.2 % (11.5-14.5); White Blood Count 6.8 K/mm3 (4.5-10.0)
--- NOTE | 2023-10-20 18:33 | PC.NURSE ---
patient in cat scan
[2023-10-20] MEDS: SODIUM CHLORIDE 0.9% IV 1,000 ML 999 ML IV CONT (18:40)
[2023-10-20 18:41] LABS: Partial Thromboplastin Time 27.9 Seconds (22.3-36.8); Prothrombin Time 13.3 Seconds (11.1-14.7)
[2023-10-20 18:48] LABS: Alanine Aminotransferase 15 U/L (6-35); Albumin Level 4.2 g/dL (3.5-5.1); Alkaline Phosphatase 105 U/L (38-126); Anion Gap 8 mmol/L (4-12); Aspartate Amino Transferase 31 U/L (14-36); Blood Urea Nitrogen 14 mg/dL (7-17); Calcium 10.1 mg/dL (8.4-10.2); Carbon Dioxide 38 mmol/L (22-30); Chloride 89 mmol/L (98-107); Estimated CRCL calculation 41 ml/min; Estimated Glomerular Filt Rate > 60; Glucose 116 mg/dL (65-110); Potassium 2.5 mmol/L (3.4-5.0); Sodium 135 mmol/L (137-145)
--- NOTE | 2023-10-20 18:51 | ED.AMS ---
HPI - Altered Mental Status General Chief Complaint: Altered Mental Status Stated Complaint: AMS Time Seen by Provider: 10/20/23 17:52 History of Present Illness HPI narrative: Patient is an 83-year-old female who presents ER with altered mental status. Last known well was around 11:00 a.m. when she had spoken to her tobacco stripper hand on the phone. Father her she says of work reviewed per patient's typically awake alert orient x4 but tonight she can only tell you her name. Daughter thinks she may have had a stroke as she is slurring her speech. Patient has no medical focal weakness in arm or leg. No facial droop. The patient takes a baby aspirin. Related Data Home Medications Medication Instructions Recorded Confirmed acetaminophen 500 mg tablet 500 mg PO Q6H PRN Breakthrough Pain 01/12/20 10/20/23 albuterol sulfate 90 mcg/actuation 2 puff inhalation Q4H PRN SOB 02/05/23 10/20/23 aerosol inhaler cholecalciferol (vitamin D3) 1,250 2,000 unit PO DAILY 02/05/23 10/20/23 mcg (50,000 unit) capsule docusate sodium 100 mg capsule 100 mg PO DAILY 02/05/23 10/20/23 (Colace) polyethylene glycol 3350 17 gram 17 g PO DAILY PRN Constipation 02/05/23 10/20/23 oral powder packet (Miralax) vitamin B complex and vitamin C 1 cap PO DAILY 02/05/23 10/20/23 no.20-folic acid 1 mg capsule fluticasone propionate 50 1 spray intranasal Q12HR PRN 05/23/23 10/20/23 mcg/actuation nasal Allergy Symptoms spray,suspension chlorthalidone 25 mg tablet 25 mg PO DAILY 05/26/23 10/20/23 pantoprazole 40 mg tablet,delayed 40 mg PO DAILY 05/26/23 10/20/23 release potassium chloride 20 mEq 40 meq PO DAILY 06/16/23 10/20/23 tablet,extended release Allergies Allergy/AdvReac Type Severity Reaction Status Date / Time No Known Allergies Allergy Verified 10/20/23 21:38 Review of Systems Review of Systems: ROS unobtainable: Yes unobtainable due to medical condition PMFSH Past Medical History Medical History Arthritis Blindness of right eye Cerebrovascular accident Chronic headaches Coronary artery disease Depression Glaucoma Hemorrhoids Hyperlipidemia Hypertension Memory loss Osteoarthritis Peripheral vascular disease Shingles Tuberculosis Wears glasses Surgical History Surgical History History of coronary angioplasty History of coronary artery stent placement History of hernia repair History of hysterectomy 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 Code status: Full code. Caffeine-none Smoking packs per day: 0.75 Smoking cigarettes per day: 15.0 Years smoked: 20 Smoking pack-years: 15.00 Smoking status: Former smoker Tobacco type: cigarettes Smoking end date: 02/10/89 Alcohol intake: never Substance use: never Substance use type: does not use Do You Feel Safe in your Home?: Yes Lack of Transportation: No Lack of Food: Never True Current Housing: I Have Housing Concerned About Future Housing: No Difficulty Paying Gas/Electric Bills: No Difficulty Paying for Meds: No Currently Unemployed: No Education: Associate Degree Difficulty w/ Childcare or Family Care: No Living arrangements: alone Occupation/Education: retired Spiritual care concerns: No Exam Narrative: GENERAL: Chronically ill-appearing, well-nourished, and in no acute distress. HEAD: Normocephalic, atraumatic. EYES: PERRL and EOMI. ENT: Mucous membranes moist. CHEST: Roberto
[2023-10-20 18:56] LABS: Add Urine Microscopic? YES; Appearance Urine Clear (Clear); Bacteria Urine None Seen /hpf; Bilirubin Urine Negative (Negative); Blood Urine Negative (Negative); Color Urine Yellow (Yellow); Glucose Urine UA Negative (Negative); Ketones Urine Negative (Negative); Leukocyte Esterase Ur Negative LEU/UL (Negative); Nitrate Urine Negative (Negative); Non Pathogenic Casts 0-2; Protein Urine 2+ mg/dL (Negative); RBC Urine 0-2 /hpf (0-2); Specific Grav Ur 1.012 (1.001-1.035); Squamous Epithelial Cell Urine None Seen /hpf (Few); WBC Urine 0-5 /hpf (0-3); pH Urine 7.5 (5.0-9.0)
[2023-10-20 18:56] LABS: Troponin I 0.024 ng/mL (0.000-0.034)
[2023-10-20] MEDS: MORPHINE SULFATE (*CRX) 4 MG/ML INJ IV PUSH (19:30)
[2023-10-20] MEDS: POTASSIUM CHLORIDE 20 MEQ ER TABLET 40 MEQ PO (19:57)
[2023-10-20] MEDS: LABETALOL HCL INJ 100 MG/20 ML VIAL 10 MG IV PUSH (19:57)
--- NOTE | 2023-10-20 20:14 | PM.IMHP ---
H&P: HPI History of Present Illness Date/Time: 10/20/23 20:14 Chief Complaint: altered mental status Narrative: this is an 83-year-old female with past medical history significant for hypertension, chronic headache, coronary artery disease, glaucoma, shingles, peripheral vascular disease, osteoarthritis tuberculosis. Patient was brought to the emergency room for evaluation due to altered mental status with, with obtundation. Patient had been staying in bed a lot and sleeping and at 1 point she was confused incoherent and disoriented and difficult to arouse 911 was called and patient was brought to the emergency room. Preliminary workup was significant for CT with left thalamic bleed. patient has been placed in observation for further evaluation management and treatment. Advanced directives have been discussed with family who is at bedside daughter and granddaughter. EXAMINATION: CT brain wo con DATE: 10/20/2023 18:32 INDICATION: mental status herndon . TECHNIQUE: Computed tomography (CT) of the head was performed without intravenous contrast. The mA was adjusted according to patient size. Iterative reconstruction technique was employed. The dose-length product was 605.33 mGy-cm. COMPARISON: None. FINDINGS: Left thalamic acute hemorrhage measuring up to 3.1 cm, causing local mass effect on the midbrain and right lateral ventricle. No intraventricular hemorrhage or extra-axial fluid collection. No hydrocephalus, mass, or herniation. No acute ischemic infarct. Unremarkable dural venous sinus attenuation. No acute osseous abnormality. Trace left mastoid fluid, the remaining aerated spaces are clear. Mild atrophy and chronic white matter change. Atherosclerotic intracranial calcification. Old right basal ganglia lacunar infarcts. Left occipital/parietal encephalomalacia, presumably old infarct. IMPRESSION: Acute, 3.1 cm left thalamic hemorrhage, with mild local mass effect. Results reported telephonically to Dr. Leon by Dr. Mahan at 6:38 PM on 10/20/2023. EXAMINATION: XR chest 1V portable Exam Date/Time: 10/20/2023 18:40 CDT HISTORY: AMS Comparison: 02/05/2023. RESULT: Lines, tubes, and devices: Intact sternotomy wires and sternal screw and plate fixation. Loop recorder. Surgical clips over the mediastinum. Lungs and pleura: Senescent change, otherwise clear. Cardiomediastinal silhouette: Stable. Other: No acute osseous or upper abdominal finding. IMPRESSION: No acute cardiopulmonary process. 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 Code status: Full code. Caffeine-none Smoking packs per day: 0.75 Smoking cigarettes per day: 15.0 Years smoked: 20 Smoking pack-years: 15.00 Smoking status: Former smoker Tobacco type: cigarettes Smoking end date: 02/10/89 Alcohol intake: era
[2023-10-21 05:48] VITALS: BP 151/60; PULSE 65; RESP 12; TEMP 36.7; O2SAT 95
--- NOTE | 2023-10-21 07:23 | PM.IMPN ---
Progress Note: A&P Assessment and Plan (1) Lacunar hemorrhage: Code(s): I61.9 - Nontraumatic intracerebral hemorrhage, unspecified Status: Acute Assessment and Plan: Head CT 10/19: Acute, 3.1 cm left thalamic hemorrhage, with mild local mass effect. Per chart review, patients daughter reports that patient is a DNR and no invasive procedure or extensive measures should be taken. Patient to be comfort measures only if patient further declines (2) Gait difficulty: Code(s): R26.9 - Unspecified abnormalities of gait and mobility Status: Acute (3) Blind one eye: Code(s): H54.40 - Blindness, one eye, unspecified eye Status: Acute (4) Peripheral vascular disease: Code(s): I73.9 - Peripheral vascular disease, unspecified Status: Acute (5) Hypertension: Qualifiers: Hypertension type: primary hypertension Qualified Code(s): I10 - Essential (primary) hypertension Code(s): I10 - Essential (primary) hypertension Status: Acute Assessment and Plan: Chronic, continue home medications. - amlodipine 10 mg daily - metoprolol 25 mg BID - monitor (6) Hyperlipidemia: Qualifiers: Hyperlipidemia type: unspecified Qualified Code(s): E78.5 - Hyperlipidemia, unspecified Code(s): E78.5 - Hyperlipidemia, unspecified Status: Acute Assessment and Plan: Chronic, continue home medication. - Atorvastatin 80 mg daily Subjective Date/time seen: 10/21/23 07:23 Interval history: 83 year old female with past medical history of presents to the hospital for altered mental status with associated slurred speech. Exam Narrative: AF General: well nourished, well-developed female in no acute respiratory distress who is nontoxic appearing, lying semi recumbent in bed. HEENT: Normocephalic. Atraumatic. Pupils equal round reactive to light. Extraocular movement intact. Sclera clear and anicteric. Nares patent. No oral lesions. Moist mucous membranes. Tongue is midline. Palate emi symmetrically. No facial asymmetry. Neck: Neck was supple. No dominant adenopathy, thyromegaly or masses. 2+ carotid upstrokes without bruits. Chest: Lungs are clear to auscultation bilaterlly. No wheezes or crackles. CV: Heart was regular rate and rhythm. S1-S2. No murmurs, gallops, or rubs. Abd: Abdomen was soft. Nontender. Nondistended. Postive bowel sounds. No organomegaly or masses. Ext: No clubbing, cyanosis, or edema. 2+ DP pulses bilaterally. Neuro: Patient is alert and oriented x4. Strenth is 5/5 in both upper and lower extremities. Cranial nerves 2-12 are intact. Speech is clear. Psych: Normal nood and affect. Patient is pleasant and cooperative. Skin: Warm and dry. No rashes noted. Objective Data Vital Signs Vital Signs: Vital Signs - 24 hr 10/20/23 17:40 10/20/23 18:05 10/20/23 18:44 Temperature 98.4 F Pulse Rate 77 80 Respiratory Rate 15 22 H Blood Pressure 179/76 H 211/87 H Pulse Oximetry 97 99 98 Oxygen Delivery Room Air Room Air 10/20/23 18:45 10/20/23 18:46 10/20/23 19:02 Temperature Pulse Rate 78 79 Respiratory Rate 20 18 Blood Pressure 176/82 H 107/95 H Pulse Oximetry 99 95 Oxygen Delivery 10/20/23 21:18 10/20/23 22:00 10/21/23 05:48 Temperature 97.2 F L 98.0 F Pulse Rate 65 68 65 Respiratory Rate 17 20 12 Blood Pressure 156/54 H 137/75 151/60 H Pulse Oximetry 95 97 95 Oxygen Delivery Intake/Output Intake/Output: Intake & Output 10/18/23 10/19/23 10/20/23 10/21/23 23:59 23:59 23:59 23:59 Intake Total 1000 Balance 1000 Meds/Results Medications: Active Medications Generic Name Dose Route Start Last Admin Trade Name Freq PRN Reason Stop Dose Admin Acetaminophen 650 mg 10/20/23 19:18 Acetaminophen 325 Mg Tablet PO Q4H PRN Mild Pain (1-3) or Fever Acetaminophen 500 mg 10/21/23 00:56 Acetaminophen 500 Mg Tablet PO Q6H PRN Camille
[2023-10-21 07:36] LABS: Basophils Percent Auto 0.4 % (0.2-1.2); Eosinophils Percent Auto 0.3 % (0-4.4); Hematocrit 36.7 % (37.0-47.0); Hemoglobin 12.3 g/dL (12.0-15.0); Immature Granulocyte Absolute 0.02 K/mm3 (0.00-0.031); Immature Granulocyte Percent A 0.3 % (0-0.5); Lymphocytes Absolute Auto 2.14 K/mm3 (0.9-3.2); Lymphocytes Percent Auto 30.7 % (18.3-44.2); Mean Corpuscular HGB Conc 33.5 g/dl (32-36); Mean Corpuscular Hemoglobin 27.7 pg (26-34); Mean Corpuscular Volume 82.7 fl (80-100); Mean Platelet Volume 9.7 fl (7.4-10.4); Monocytes Absolute Auto 0.5 K/mm3 (0.1-0.6); Monocytes Percent Auto 6.9 % (2.6-8.5); Neutrophils Absolute Auto 4.3 K/mm3 (1.3-6.7); Neutrophils Percent Auto 61.4 % (45.5-73.1); Platelet Count Result 201 k/mm3 (150-375); Red Blood Count 4.44 M/mm3 (4.2-5.4); Red Cell Distribution Width 14.5 % (11.5-14.5)
[2023-10-21 08:03] LABS: Alanine Aminotransferase 14 U/L (6-35); Albumin Level 3.8 g/dL (3.5-5.1); Alkaline Phosphatase 83 U/L (38-126); Anion Gap 8 mmol/L (4-12); Aspartate Amino Transferase 29 U/L (14-36); Bilirubin,Total 1.1 mg/dL (0.2-1.3); Blood Urea Nitrogen 13 mg/dL (7-17); Calcium 9.3 mg/dL (8.4-10.2); Carbon Dioxide 33 mmol/L (22-30); Chloride 93 mmol/L (98-107); Estimated CRCL calculation 38 ml/min; Estimated Glomerular Filt Rate > 60; Glucose 98 mg/dL (65-110); Potassium 2.6 mmol/L (3.4-5.0); Sodium 134 mmol/L (137-145)
[2023-10-21] MEDS: ONDANSETRON INJ 4 MG/2 ML VIAL IV PUSH (08:37)
[2023-10-21] MEDS: CHLORTHALIDONE 25 MG TABLET PO (08:39)
[2023-10-21] MEDS: POTASSIUM CHLORIDE INJ 40 MEQ in SODIUM CHLORIDE 0.9% IV 500 ML 130 MEQ IVPB (08:39)
[2023-10-21] MEDS: POTASSIUM CHLORIDE 20 MEQ ER TABLET 40 MEQ PO (08:46)
[2023-10-21 08:47] VITALS: O2SAT 94
[2023-10-21] MEDS: POTASSIUM CHLORIDE 20 MEQ ER TABLET PO (08:48)
[2023-10-21 08:49] VITALS: PULSE 68
[2023-10-21] MEDS: DOCUSATE SODIUM 100 MG CAPSULE PO (08:49)
[2023-10-21] MEDS: METOPROLOL TARTRATE 25 MG TABLET PO (08:49)
[2023-10-21] MEDS: PANTOPRAZOLE 40 MG TABLET PO (08:49)
[2023-10-21] MEDS: amLODIPine BESYLATE 10 MG TABLET PO (08:50)
[2023-10-21] MEDS: ACETAMINOPHEN 325 MG TABLET 650 MG PO (08:57)
[2023-10-21 09:35] VITALS: PULSE 68; RESP 12; O2SAT 94
--- NOTE | 2023-10-21 16:10 | PM.DS ---
DS: Admitting Diagnosis Discharge Date 10/21/23 Admitting Diagnosis Altered mental status DS: Discharge Diagnosis Discharge Diagnosis (1) Lacunar hemorrhage: Code(s): I61.9 - Nontraumatic intracerebral hemorrhage, unspecified Status: Acute (2) Gait difficulty: Code(s): R26.9 - Unspecified abnormalities of gait and mobility Status: Acute (3) Acute hypokalemia: Code(s): E87.6 - Hypokalemia Status: Acute (4) Hypertension: Qualifiers: Hypertension type: primary hypertension Qualified Code(s): I10 - Essential (primary) hypertension Code(s): I10 - Essential (primary) hypertension Status: Acute (5) Hyperlipidemia: Qualifiers: Hyperlipidemia type: unspecified Qualified Code(s): E78.5 - Hyperlipidemia, unspecified Code(s): E78.5 - Hyperlipidemia, unspecified Status: Acute DS: Summary Hospital Course Reason for hospitalization: lacunar hemorrhage gait difficulty acute hypokalemia hypertension hyperlipidemia Hospital Course: 83 year old female with past medical history of hypertension, hyperlipidemia, and PVD presents to the hospital for altered mental status with associated slurred speech. Chest XR shows no acute cardiopulmonary process. A head CT was obtained and showed an acute 3.1 cm left thalamic hemorrhage, with mild local mass effect. On admission patient had severe hypokalemia of 2.5. Potassium 2.6 on 10/20 labs. Started on potassium supplementation. Patients current status was discussed with her daughter who reported that patient was to be a DNR, not wanting any excessive measures taken. Discussed hospice treatment with family and they wish to proceed with hospice at this time. Care coordination was consulted and martina reported to patients room. Patient was set up with home hospice with [facility]. Patient discharged home with [facility]. Time Spent with Patient Time attestation: Total time spent providing and/or coordinating discharge services: Time spent: Greater than 30 minutes Exam Narrative: AF HR 65 RR 12 SpO2 95 BP 151/60 General: female in no acute respiratory distress who is nontoxic appearing, lying semi recumbent in bed. HEENT: Normocephalic. Atraumatic. Extraocular movement intact. Sclera clear and anicteric. Post stoke dyskinesia of the face. Chest: Lungs are clear to auscultation bilaterally. No wheezes or crackles. CV: Heart was regular rate and rhythm. S1-S2. No murmurs, gallops, or rubs. Abd: Abdomen was soft. Nontender. Nondistended. Positive bowel sounds. No organomegaly or masses. Ext: No clubbing, cyanosis, or edema. 2+ DP pulses bilaterally. Post stroke dyskinesia of the upper extremities. Neuro: Patient is alert and oriented x2. Following commands and able to hold conversation. Speech is slurred. Psych: Normal mood and affect. Patient is pleasant and cooperative. Skin: Warm and dry. No rashes noted. DS: Data Data Completed and Pending Completed studies during hospitalization: Chest XR Head CT Labs on day of discharge: Labs from last 24 hours 10/21/23 10/20/23 10/20/23 07:20 18:17 18:11 WBC 7.0 6.8 RBC 4.44 4.93 Hgb 12.3 13.8 Hct 36.7 L 40.0 MCV 82.7 81.1 MCH 27.7 28.0 MCHC 33.5 34.5 RDW 14.5 14.2 Plt Count 201 202 MPV 9.7 9.4 Immature Gran % (Auto) 0.3 0.1 Neut % (Auto) 61.4 67.9 Lymph % (Auto) 30.7 24.6 [place] % (Auto) 6.9 6.7 Eos % (Auto) 0.3 0.3 Baso % (Auto) 0.4 0.4 Lymph # (Auto) 2.14 1.66 [place] # (Auto) 0.5 0.5 Eos # (Auto) 0.0 0.0 Baso # (Auto) 0.0 0.0 Abs Immat Gran (auto) 0.02 0.01 Absolute Neuts (auto) 4.3 4.6 Absolute Nucleated RBC 0.000 0.000 Nucleated RBC % 0.0 0.0 PT 13.3 INR 1.0 APTT 27.9 Sodium 134 L 135 L Potassium 2.6 L* 2.5 L* Chloride 93 L 89 L Carbon Dioxide 33 H 38 H Anion Gap 8 8 BUN 13 14 Creatinine 0.80 0.80 Estim Creat Clear Calc 38 41 Estimated
== END 2023-10-21 14:10 | disposition hospice, home (50) | DRG 66 ==
LOC: ANHED 19:50 → ANH3MEDSUR 20:25
PROVIDERS: Admitting Provider Internal Medicine; Emergency Provider Emergency Medicine; PCP Internal Medicine; Visit Provider Student in an Organized Health Care Education/Training Program
DX: I61.9 Nontraumatic intracerebral hemorrhage, unspecified (principal); R47.81 Slurred speech; E78.5 Hyperlipidemia, unspecified; E87.6 Hypokalemia; I73.9 Peripheral vascular disease, unspecified; I10 Essential (primary) hypertension; I25.10 Atherosclerotic heart disease of native coronary artery without angina pectoris; M19.90 Unspecified osteoarthritis, unspecified site; R26.9 Unspecified abnormalities of gait and mobility; Z66 Do not resuscitate; Z86.73 Personal history of transient ischemic attack (TIA), and cerebral infarction without residual deficits; Z95.5 Presence of coronary angioplasty implant and graft; Z95.1 Presence of aortocoronary bypass graft; Z87.891 Personal history of nicotine dependence
CPT/HCPCS: 36415; 70450; 71045; 80053; 81001; 83605; 84443; 84484; 85025; 85610; 85730; 93005; 99285; A9270; J2270; J2405; J3480; J7030; J7040